=== PATIENT | female | born 1995 | race Caucasian/White ===

== ENCOUNTER 2017-09-26 21:58 | Emergency (ER) | payer OTHER, SELFPAY ==
[2017-09-26] MEDS ORDERED: BUPIVACAINE 0.5% PF 10 ML VIAL ONE (22:56)
--- NOTE | 2017-09-27 00:28 | ER ---
Nurse's Notes [facility] Name: Pavithra Chester Age: 22 yrs Sex: Female : 1995 Arrival Date: 09/26/2017 Time: 22:02 Bed 15 Private MD: Diagnosis: Ingrown Toenail Presentation: 09/26 22:22 Presenting complaint: Patient states: Reports she has an ingrown toe nail in the left ea big toe. Pt states "it hurts when I walk on that foot". Redness and swelling noted around left great toe nail. Transition of care: patient was not received from another setting of care. Onset of symptoms was September 26, 2017. Risk Assessment: Do you want to hurt yourself or someone else? Patient reports no desire to harm self or others. Initial Sepsis Screen: Does the patient meet any 2 criteria? HR > 90 bpm. Yes Does the patient have a suspected source of infection? Yes: Skin breakdown/wound. Care prior to arrival: None. 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 - Ebola Screening: : No symptoms or risks identified at this time. Screenin:19 Abuse screen: Denies threats or abuse. Nutritional screening: No deficits noted. ea Tuberculosis screening: No symptoms or risk factors identified. Fall Risk None identified. Assessment: 22:20 General: Appears in no apparent distress. Behavior is cooperative, appropriate for age. ea General: Smells of alcohol. Pain: Pain: Complains of pain in Left first toenail Pain does not radiate. Pain currently is 8 out of 10 on a pain scale. Quality of pain is described as throbbing. Neuro: Level of Consciousness is awake, alert, obeys commands, Oriented to person, place, time, situation. Cardiovascular: Patient's skin is warm and dry. Respiratory: Airway is patent Respiratory effort is even, unlabored, Respiratory pattern is regular, symmetrical. GI: No signs and/or symptoms were reported involving the gastrointestinal system. : No signs and/or symptoms were reported regarding the genitourinary system. EENT: No signs and/or symptoms were reported regarding the EENT system. Derm: Skin is pink, warm \\T\\ dry. Musculoskeletal: Circulation, motion, and sensation intact. 23:20 Reassessment: Patient and/or family updated on plan of care and expected duration. Pain ea level reassessed. Patient is alert, oriented x 3, equal unlabored respirations, skin warm/dry/pink. 09/27 00:45 Reassessment: Patient and/or family updated on plan of care and expected duration. Pain ea level reassessed. Patient is alert, oriented x 3, equal unlabored respirations, skin warm/dry/pink. Discharge instruction given to patient, verbalized the understanding of instruction. Patient states feeling better. Patient states symptoms have improved. Vital Signs: 09/26 22:25 BP 120 / 84; Pulse 93; Resp 16 S; Temp 98.5(O); Pulse Ox 98% on R/A; Weight 111.13 kg bb (R); Height 5 ft. 4 in. (162.56 cm) (R); Pain 2/10; 23:30 BP 128 / 80; Pulse 90; Resp 18; Pulse Ox 99% ; ea 09/27 00:45 BP 118 / 78; Pulse 88; Resp 18; Pulse Ox 98% on R/A; ea 07 22:25 Body Mass Index 42.05 (111.13 kg, 162.56 cm) bb ED Course: 09/26 22:02 Patient arrived in ED. ds1 22:07 Evin Mg PA is PHCP. jr8 22:07 Raudel Parsons MD is Attending Physician. jr8 22:19 Sahra Jewell RN is Primary Nurse. ea 22:20 Arm band placed on right wrist. Patient placed in an exam room, on a stretcher, on ea pulse oximetry. 22:20 Patient has correct armband on for positive identification. Bed in low position. Call ea light in reach. Side rails up X2. 22:24 Triage completed. ea 09/27 00:30 No provider procedures requiring assistance completed. ea 00:45 Patient did not have IV access during this emergency room visit. ea Administered Medications: 00:02 Drug: Marcaine (0.5 %) 1 vials {Note: by provider.} Volume: 10 ml; Route: Infiltration; ea Outcome: 00:27 Discharge ordered by MD. ha 00:45 Condition: improved ea 00:45 Discharge instructions given to patient, Instructed on discharge instructions, follow up and referral plans. medication usage, Demonstrated understanding of instructions, follow-up care, medications, Prescriptions given X 3. 00:50 Discharged to home ambulatory, with significant other. ea 00:54 Patient left the ED. ea Signatures: Zhanna Manzanares ds1 Cindy Martinez, RN RN Evin Brown PA PA jr8 Sahra Jewell RN RN ea
--- NOTE | 2017-09-27 00:28 | EDPHYS ---
Physician Documentation [facility] Name: Pavithra Chseter Age: 22 yrs Sex: Female : 1995 Arrival Date: 09/26/2017 Time: 22:02 Bed 15 Private MD: ED Physician Raudel Parsons HPI: 09/26 22:59 This 22 yrs old Female presents to ER via Ambulatory with complaints of Toe jr8 Injury. 22:59 The patient presents with pain, swelling, tenderness. The complaints affect the Left jr8 first toenail. Onset: The symptoms/episode began/occurred gradually, 1 week(s) ago, and became worse and became persistent. Modifying factors: The symptoms are alleviated by nothing, the symptoms are aggravated by weight bearing, movement. Associated signs and symptoms: The patient has no apparent associated signs or symptoms. Severity of symptoms: At their worst the symptoms were mild, in the emergency department the symptoms are unchanged. The patient has not experienced similar symptoms in the past. The patient has not recently seen a physician. 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 - Ebola Screening: : No symptoms or risks identified at this time. ROS: 22:59 Eyes: Negative for injury, pain, redness, and discharge, ENT: Negative for injury, jr8 pain, and discharge, Neck: Negative for injury, pain, and swelling, Cardiovascular: Negative for chest pain, palpitations, and edema, Respiratory: Negative for shortness of breath, cough, wheezing, and pleuritic chest pain, Abdomen/GI: Negative for abdominal pain, nausea, vomiting, diarrhea, and constipation, Back: Negative for injury and pain, Skin: Negative for injury, rash, and discoloration, Neuro: Negative for headache, weakness, numbness, tingling, and seizure. 22:59 MS/extremity: Positive for erythema, pain, swelling, tenderness, of the Left first toe. Exam: 22:59 Cardiovascular: Regular rate and rhythm with a normal S1 and S2. No gallops, murmurs, jr8 or rubs. Normal PMI, no JVD. No pulse deficits. Respiratory: Lungs have equal breath sounds bilaterally, clear to auscultation and percussion. No rales, rhonchi or wheezes noted. No increased work of breathing, no retractions or nasal flaring. Skin: Warm, dry with normal turgor. Normal color with no rashes, no lesions, and no evidence of cellulitis. Neuro: Awake and alert, GCS 15, oriented to person, place, time, and situation. Cranial nerves II-XII grossly intact. Motor strength 5/5 in all extremities. Sensory grossly intact. Cerebellar exam normal. Normal gait. 22:59 Musculoskeletal/extremity: Extremities: grossly normal except: noted in the left first toe: Patient has ingrown toe nail to lateral nailbed with mild oozing of serous fluid. Red and tender to touch with swelling , ROM: intact in all extremities, Circulation is intact in all extremities. Sensation intact. Vital Signs: 22:25 BP 120 / 84; Pulse 93; Resp 16 S; Temp 98.5(O); Pulse Ox 98% on R/A; Weight 111.13 kg bb (R); Height 5 ft. 4 in. (162.56 cm) (R); Pain 2/10; 23:30 BP 128 / 80; Pulse 90; Resp 18; Pulse Ox 99% ; ea 09/27 00:45 BP 118 / 78; Pulse 88; Resp 18; Pulse Ox 98% on R/A; ea 09/26 22:25 Body Mass Index 42.05 (111.13 kg, 162.56 cm) bb Procedures: 00:24 Nerve block: (digital) of left first toe Medication: Marcaine 0.5%, Amount: 5 mls were jr8 injected, Effect: the patient has resolution of the pain, Set up for procedure. Performed by Evin ST Patient tolerated well. Performed Partial removal of toe nail. Patient dressed and cleaned in sterile fashion. Lateral 1/4 of nail removed down through the bed to extract ingrown toenail. Less then 1 cc blood loss during procedure. . MDM: 09/26 22:07 Patient medically screened. jr8 09/27 00:24 Data reviewed: vital signs, nurses notes, and as a result, I will discharge patient. jr8 Data interpreted: Pulse oximetry: on room air is 98 %. Interpretation: normal. Counseling: I had a detailed discussion with the patient and/or guardian regarding: the historical points, exam findings, and any diagnostic results supporting the discharge/admit diagnosis, the need for outpatient follow up, a family practitioner, to return to the emergency department if symptoms worsen or persist or if there are any questions or concerns that arise at home. 09/26 22:48 Order name: Dressing - Wound jr8 09/26 22:48 Order name: Gloves, Sterile; Complete Time: 22:54 jr8 09/26 22:48 Order name: Setup Suture Tray; Complete Time: 22:55 jr8 Administered Medications: 00:02 Drug: Marcaine (0.5 %) 1 vials {Note: by provider.} Volume: 10 ml; Route: Infiltration; ea Disposition: 19:08 Co-signature as Attending Physician, Raudel Parsons MD. gs Disposition: 09/27/17 00:27 Discharged to Home. Impression: Ingrown Toenail . - Condition is Stable. - Discharge Instructions: Ingrown Toenail. - Prescriptions for Ibuprofen 800 mg Oral Tablet - take 1 tablet by ORAL route every 12 hours As needed take with food; 20 tablet. Tylenol- Codeine #3 300-30 mg Oral Tablet - take 2 tablets by ORAL route every 6 hours As needed; 12 tablet. Bactrim DS 800- 160 mg Oral Tablet - take 1 tablet by ORAL route every 12 hours for 10 days; 20 tablet. - Medication Reconciliation Form, Thank You Letter, Antibiotic Education, Prescription Opioid Use form. - Follow up: Private Physician; When: 5 - 6 days; Reason: Recheck today's complaints, Continuance of care, Re-evaluation by your physician. - Problem is new. - Symptoms have improved. Signatures: Evin Mg PA PA jr8 Sahra Jewell RN RN ea Starr, Gregory, MD MD gs Corrections: (The following items were deleted from the chart) 00:54 00:27 09/27/2017 00:27 Discharged to Home. Impression: Ingrown Toenail . Condition is ea Stable. Forms are Medication Reconciliation Form, Thank You Letter, Antibiotic Education, Prescription Opioid Use. Follow up: Private Physician; When: 5 - 6 days; Reason: Recheck today's complaints, Continuance of care, Re-evaluation by your physician. Problem is new. Symptoms have improved. jr8
== END 2017-09-27 00:54 | disposition home or self-care (01) ==
LOC: ER 21:58
PROC: 3E0T3BZ Introduction of Anesthetic Agent into Peripheral Nerves and Plexi, Percutaneous Approach (ICD-10-PCS; principal; 2017-09-27)
DX: L60.0 Ingrowing nail (principal); Z88.1 Allergy status to other antibiotic agents; Z88.3 Allergy status to other anti-infective agents
CPT/HCPCS: 64450; 99283

== ENCOUNTER 2022-10-06 10:59 | Emergency (ER) | payer OTHER, SELFPAY ==
--- OUTSIDE RECORDS SUMMARY | 2022-10-06 11:02 | XMS REPORT | Continuity of Care Document ---
:1995 Author Organization [facility] t Address [address] [facility] [address] [place] [address] Care Team Providers Name Role Phone Mariposa Gallegos Primary Care Physician [phone] CARLOS ATKINS Attending Clinician Unavailable Cindy Lawrence MA Attending Clinician Unavailable Carlos Atkins MD Attending Clinician SHAWNEE CORTEZ Attending Clinician Unavailable Shawnee Cortez PA-C Attending Clinician Nurse, [facility] Attending Clinician Unavailable Anselmo Cuadra CRNA Attending Clinician Marek Samuels MD, Leonard Attending Clinician Aziza Fong MD Attending Clinician 2, [facility] Attending Clinician Unavailable Doctor Unassigned, [place] Attending Clinician Unavailable Ultrasound, [facility] Attending Clinician Unavailable Armando Roque MD Attending Clinician Room, [facility] Attending Clinician Unavailable Ultrasound, [facility] Attending Clinician Unavailable Ayaan Farfan MD, Mary Ellen Attending Clinician [phone] Delio Galeano MD Attending Clinician Erica Mccarty MD Attending Clinician MARIPOSA CARLSON Attending Clinician Unavailable Mariposa Gallegos Attending Clinician [phone] CARLOS ATKINS Admitting Clinician Unavailable Carlos Atkins MD Admitting Clinician Payers Payer Name Policy Type Policy Number Effective Date Expiration Date Roxanna resendez [facility] [id number] 2020 CHOICE MEDICAID 00:00:00 MEDICAID PENDING PENDING 2020 00:00:00 Problems Condition Condition Condition Status Onset Resolution Last Treating Co mments Source Name Details Category Date Date Treatment Clinician Date Morbid Morbid Disease Active Univers obesity obesity 5-10 [place] of [place] mass index 00 Me dical of of Branch 40.0-49.9 40.0-49.9 History of History of Disease Active U nivers asthma asthma 3-08 ity of 00:00: [place] 00 Medical Branch 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 Refer to colpo clinic Allergies, Adverse Reactions, Alerts Allergy Allergy Status Severity Reaction(s) Onset Inactive Treating Comm ents Source Name Type Date Date Clinician AZITHROM DRUG Active Hives Univers YCIN INGREDI 7-12 ity of 00:00: [place] 00 Medical Branch Azithrom Propensi Active Hives Univer s ycin ty to 7-12 ity of adverse 00:00: [place] reaction 00 Medical s Branch Penicill Propensi Active Hives 2014-03 Univer s ins ty to 106 ity of adverse 00:00: [place] reaction 00 Medical s Branch AMOXICIL DRUG Active Hives 2014-03 Univers ROBERT-POT 1-06 ity of CLAVULAN 00:00: [place] ATE 00 Medical Branch PENICILL Drug Active Hives 2014-03 Univers INS Class 1-06 ity of 00:00: [place] 00 Medical Branch Penicill Propensi Active Hives 2014-03 Univer s ins ty to 106 ity of adverse 00:00: [place] reaction 00 Medical s Branch Amoxicil Propensi Active Hives 2014-03 Univer s robert-Pot ty to 106 ity of Clavulan adverse 00:00: [place] ate reaction 00 Medical s Branch Social History Social Habit Start Date Stop Date Quantity Comments Source Exposure to 2022-06-21 2022-07-01 Not sure University SARS-CoV-2 (event) 00:00:00 09:55:00 [facility] Alcohol Comment 2022-07-01 2022-07-01 once or twice a Univ ersity of 00:00:00 00:00:00 month [facility] Cigarettes smoked 2022-07-01 2022-07-01 Univers ity of current (pack per 00:00:00 00:00:00 [facility] ed) - Reported Branch Tobacco use and 2022-07-01 2022-07-01 Smokeless Universit y of exposure 00:00:00 00:00:00 tobacco non-user [facility] dical [place] Alcohol intake 2022-07-01 2022-07-01 Current drinker Unive rsity of 00:00:00 00:00:00 of alcohol [facility] (finding) Branch History of tobacco 2020-04-13 Cigarette Smoker University of use 00:00:00 [facility] Sex Assigned At [birth year] Universit y of 00:00:00 00:00:00 [facility] Smoking Status Start Date Stop Date Source Ex-smoker 2022-07-01 00:00:00 2022-07-01 00:00:00 Universi ty [facility] Medications Ordered Filled Start Stop Current Ordering Indication Dosage Frequency Signature Comments Components Source Medication Medication Date Date Medication? Clinician (SIG) Name Name acetaminoph Yes Take by Uni vers en (TYLENOL 4-26 mouth. ity of ORAL) 14:00: [address] acetaminoph Yes Take by Uni vers en (TYLENOL 4-26 mouth. ity of ORAL) 14:00: [address] acetaminoph Yes Take by Uni vers en (TYLENOL 4-26 mouth. ity of ORAL) 14:00: [address] acetaminoph Yes Take by Uni vers en (TYLENOL 4-26 mouth. ity of ORAL) 14:00: [address] 2020-03- No [id number] 1{tbl} Take 1 Univers vitamin 0-07-01 tablet by ity of w/FA tablet 00:00[place] 00[place] mouth [place] :00 daily. Medical Branch docusate 2020-03- No [id number] 240mg Take 1 U nivers calcium 240 07-01 capsule by i ty of mg capsule 00:00: 00:00 mouth once [place] 00 :00 daily as Medical needed for Branch Constipati on. ferrous 2020-03- No [id number] 325mg Take 1 Un osvaldo sulfate 325 07-01 tablet by it y of mg (65 mg 00:00: 00:00 mouth 2 [place] iron) 00 :00 (two) Medical tablet times Branch daily. ibuprofen 2020-03- No [id number] 600mg Take 1 Univers 600 mg 07-01 tablet by ity of tablet 00:00: 00:00 mouth [place] 00 :00 every 6 Medical (six) Branch hours as needed (Pain). Take with food or milk. Immunizations Ordered Filled Immunization Date Status Comments [facility] Immunization Name Name Varicella 2020-12-06 Completed [facility] (varivax)(chicken 00:00:00 [facility] edical pox) [place] Varicella 2020-12-06 Completed [facility] (varivax)(chicken 00:00:00 [facility] edical pox) Branch Varicella 2020-12-06 Completed [facility] (varivax)(chicken 00:00:00 [facility] edical pox) Branch Varicella 2020-12-06 Completed [facility] (varivax)(chicken 00:00:00 [facility] edical pox) [place] TDAP 2020-10-08 Completed [facility] 00:00:00 [facility] TDAP 2020-10-08 Completed University of 00:00:00 [facility] TDAP 2020-10-08 Completed University of 00:00:00 [facility] TDAP 2020-10-08 Completed [facility] 00:00:00 [facility] Vital Signs Vital Name Observation Time Observation Value Comments Source Systolic blood 2022-07-01 18:17:00 130 mm[Hg] Univer sity of pressure [facility] Diastolic blood 2022-07-01 18:17:00 80 mm[Hg] Unive rsity of pressure [facility] Heart rate 2022-07-01 18:17:00 85 /min Universi ty of [facility] Body temperature 2022-07-01 18:17:00 36.83 Dee [facility] ersity of [facility] Body height 2022-07-01 18:17:00 162.6 cm Universi ty of [facility] Body weight 2022-07-01 18:17:00 109.77 kg Universi ty of [facility] BMI 2022-07-01 18:17:00 41.54 kg/m2 Universi ty [facility] Systolic blood 2021-07-01 18:53:00 119 mm[Hg] Univer sity of pressure [facility] Diastolic blood 2021-07-01 18:53:00 81 mm[Hg] Unive rsity of [facility] Heart rate 2021-07-01 18:53:00 84 /min Universi ty [facility] Body temperature 2021-07-01 18:53:00 36.89 Dee [facility] Body height 2021-07-01 18:53:00 162.6 cm Universi ty of [facility] Body weight 2021-07-01 18:53:00 99.701 kg Universi ty [facility] BMI 2021-07-01 18:53:00 37.73 kg/m2 Universi ty [facility] Procedures Procedure Date / Time Performed Performing Clinician [facility] LAB ONLY PAP 2021-07-01 19:17:[address] [facility] [place] SMEAR-LIQUID [facility] h PAP SMEAR-LIQUID 2021-07-01 19:17:00 Carlos [facility] Encounters Start End Encounter Admission Attending Care Care Encounter Source Date/Time Date/Time Type Type Clinicians Facility Department ID 2021-01-07 Outpatient P [facility] FIDEL [id number] Univers 02:05:25 ity of [facility] 2021-01-06 Emergency [facility] [id number] Univers 20:31:55 ity of [facility] 2022-08-27 2022-08-27 RYLEY Pyle 1.2.840.114 [id number] Univers 00:00:00 00:00:00 Management Cindy [place] [id number] ity of [place] 4.2.7.2.686 [place] [phone] [address] 2022-07-01 2022-07-01 Outpatient R CARLOS ATKINS [facility] [id number] Univers 13:30:00 13:54:34 ity [facility] 2022-07-01 2022-07-01 [facility] [id number] Univers 13:30:00 13:54:34 Visit Cam [place] [id number] i ty of [facility] 4.2.7.2.686 [place] [phone] [address] 2021-07-01 2021-07-01 Outpatient R MILLY [facility] [id number] Univers 13:45:00 14:20:55 ity of [facility] 2021-07-01 2021-07-01 Outpatient R MILLY [facility] [id number] Univers 13:45:00 14:20:55 ity [facility] 2021-07-01 2021-07-01 Office [facility] [id number] Univers 13:45:00 14:20:55 Visit Ramiro [place] [id number] i ty of [place] [id number] [place]ESS[place] [phone] [address] 2021-01-14 2021-01-14 Telephone [facility] 1.2.840.114 [id number] Univers 00:00:00 00:00:00 Cam [place] 350.1.13.10 i ty of [place] 4.2.7.2.686 [place] [phone] [address] 2021-01-02 2021-01-02 Outpatient R DANA [facility] [id number] Univers 16:00:00 17:05:31 SHAWNEE itcorine [facility] 2021-01-02 2021-01-02 [facility] 1.2.106.990 [id number] Univers 15:59:41 17:05:31 Shawnee NUGENT 350.1.13.10 ity of Visit [place] [id number] [place] [phone] Wy dical NAL [address] [place] [address] 2020-12-12 2020-12-12 Telephone Carlos Atkins [facility] 1.2.840.114 [id number] Univers 00:00:00 00:00:00 Cam [place] 350.1.13.10 i ty of [place] 4.2.7.2.686 [place] Profess[place] [phone] Wy dic[address] 2020-12-10 2020-12-10 Nurse Nurse, [facility] 1.2.840.114 [id number] Univers 14:56:17 15:30:53 Visit Carlos Atkins Ramiro Nugent 350.1.13.10 ity of [place] 4.2.7.2.686 [place] Profess[place] [phone] [address] 2020-12-10 2020-12-10 Outpatient R MILLY [facility] [id number] Univers 14:30:00 14:30:00 ity of [facility] 2020-12-09 2020-12-09 Outpatient R MILLY [facility] [id number] Univers 10:45:00 10:45:00 ity [facility] 2020-12-03 2020-12-06 [facility] Carlos Atkins [facility] 1.2.840.114 [id number] Univers 15:41:00 15:05:00 Encounter Ramiro Nugent 350.1.13.10 ity of [place] 4.2.7.2.686 [facility] [id number] [address] 2020-12-05 2020-12-05 Anesthesia Khalif [facility] 1.2.840.114 [id number] Univers 20:03:17 20:03:17 Event Anselmo Nugent 350.1.13.10 i ty of [place] 4.2.7.2.686 [facility] [id number] [address] 2020-12-04 2020-12-05 Anesthesia Alex Jara [facility] 1.2.84 0.114 [id number] Univers 22:25:00 12:25:00 Event Fong, Aziza Sec[place] 350.1.13.10 ity of [place] 4.2.7.2.686 [place] [phone] [facility] [address] [place] 2020-12-03 2020-12-03 Routine Carlos Atkins [facility] 1.2.476.658 [id number] Univers 14:13:05 15:25:55 Cam [place] 350.1.13.10 ity of Visit [place] 4.2.7.2.686 [place] [phone] Wy dical nal [address] [facility] 2020-12-03 2020-12-03 Outpatient R CARLOS ATKINS [facility] [id number] Univers 14:15:00 14:15:00 ity of [facility] 2020-11-29 2020-11-29 Instrument Lens Generator 2, Adc Lab [facility] 1.2.840.114 [id number] Univers 14:25:36 14:40:36 Visit Carlos Atikns 350.1.13.10 ity of [place] 4.2.7.2.686 [place] [facility] [phone] Wy dical nal 353 [facility] 2020-11-29 2020-11-29 Outpatient R [facility] [id number] Univers 14:30:00 14:30:00 ity of [facility] 2020-11-25 2020-11-25 Routine [facility] [id number] Univers 15:14:06 16:29:36 Cam [place] 350.1.13.10 ity of Visit [place] [id number] [place] Profess[place] [phone] Wy dical nal 134 [facility] 2020-11-25 2020-11-25 Outpatient R CARLOS ATKINS [facility] [id number] Univers 15:15:00 15:15:00 ity of [facility] 2020-11-25 2020-11-25 Orders Doctor SLADE 1.2.840.114 [id number] Univers 00:00:00 00:00:00 Only Unassigned, [place] 350.1.13.10 ity of [place] [facility] 4.2.7.2.686 Sukhdev as [phone] [address] 2020-11-22 2020-11-22 Instrument Lens Generator Ultrasound, [facility] 1.2 .840.114 [id number] Univers 13:25:01 13:55:01 Visit Jude Armando Vikas [place]ug[place] 350.1.13.10 ity of [place] 4.2.7.2.686 [place] Profess[place] [phone] Wy dical [address] 2020-11-22 2020-11-22 Outpatient P [facility] [id number] Univers 13:30:00 13:30:00 ity [facility] 2020-11-21 2020-11-21 Outpatient R DANA [facility] [id number] Univers 14:45:00 14:45:00 [facility] [place] [facility] 2020-11-21 2020-11-21 Outpatient R [facility] [id number] Univers 14:00:00 [facility]00[facility]00 [facility] 2020-11-19 2020-11-19 Outpatient R DANA [facility] [id number] Univers 11:30:00 11:30:00 [facility] [place] [facility] 2020-11-18 2020-11-18 Routine Room, [facility] 1.2.840.1 [id number] Univers 10:05:39 11:15:17 Carlos Atkins 350.1.13.10 ity of Visit [place] 4.2.7.2.686 [place] Profess[place] [phone] Wy dical nal [address] [place] [address] 2020-11-18 2020-11-18 Outpatient R [facility] [id number] Univers 10:00:00 10:00:00 ity [facility] 2020-11-15 2020-11-15 Telephone Carlos Atkins [facility] 1.2.840.114 [id number] Univers 00:00:00 00:00:00 Ramiro Nugent 350.1.13.10 i ty of [place] 4.2.7.2.686 [place] Profess[place] [id number] Wy dical nal [address] [place] [address] 2020-11-15 2020-11-15 Telephone Carlos Atkins [facility] 1.2.840.114 [id number] Univers 00:00:00 00:00:00 Cam Sec[place] 350.1.13.10 i ty of [place] 4.2.7.2.686 [place] [phone] Wy dical nal 134 [facility] 2020-11-13 2020-11-13 Routine Room, [facility] 1.2.840.1 [id number] Univers 09:07:01 10:11:21 Carlos Atkins [place] 350.1.13.10 ity of Visit [place] 4.2.7.2.686 [place] Profess[place] [phone] Wy dical nal [address] [place] [address] 2020-11-13 2020-11-13 Routine Room, [facility] [place] 1.2.840.1 [id number] [facility] [facility] 09:07:01 10:11:21 Carlos Atkins [place] 350.1.13.10 ity of Visit [place] 4.2.7.2.686 [place] Profess[place] [phone] Wy dical nal [address] [place] [address] 2020-11-13 2020-11-13 Outpatient R [facility] [id number] Univers 09:00:00 09:00:00 ity of [facility] 2020-11-12 2020-11-12 Telephone Carlos Atkins [facility] 1.2.840.114 [id number] Univers 00:00:00 00:00:00 Cam [place] 350.1.13.10 i ty of [place] 4.2.7.2.686 [place] Profess[place] [phone] Wy dical nal [address] [place] [address] 2020-11-12 2020-11-12 Telephone Carlos Atkins [facility] 1.2.840.114 [id number] Univers 00:00:00 00:00:00 Cam [place] 350.1.13.10 i ty of [place] 4.2.7.2.686 [place] [phone] Wy dical nal [address] [place] [address] 2020-11-10 2020-11-10 Emergency [facility] 1.2.840.114 [id number] Univers 03:32:00 04:35:00 Cam Sec[place] 350.1.13.10 i ty of [place] 4.2.7.2.686 [id number] [address] 2020-11-10 2020-11-10 Emergency [facility] 1.2.840.114 [id number] Univers 03:32:00 04:35:00 Cam [place] 350.1.13.10 i ty of [place] 4.2.7.2.686 [place] [facility] [id number] [address] 2020-11-08 2020-11-08 Orders Doctor [place] 1.2.840.114 [id number] Univers 00:00:00 00:00:00 Only Unassigned, MAGDI[place] 350.1.13.10 ity of [place] [facility] 4.2.7.2.686 Sukhdev as [phone] [address] 2020-11-08 2020-11-08 Orders Doctor [place] 1.2.840.114 [id number] Univers 00:00:00 00:00:00 Only Unassigned, MAGDI[place] 350.1.13.10 ity of [place] [facility] 4.2.7.2.686 Sukhdev as [phone] [address] 2020-11-06 2020-11-06 Routine [facility] 1.2.062.401 [id number] Univers 13:03:27 14:13:35 Cam Sec[place] 350.1.13.10 ity of Visit [place] 4.2.7.2.686 [place] Profess[place] [phone] Wy dical nal [address] [place] [address] 2020-11-06 2020-11-06 Routine [facility] 1.2.366.865 [id number] Univers 13:03:27 14:13:35 Cam Sec[place] 350.1.13.10 ity of Visit [place] 4.2.7.2.686 [place] Profess[place] [phone] Wy dictn nal [address] [place] [address] 2020-11-06 2020-11-06 Outpatient R MILLY CARLOS [facility] [id number] Univers 13:00:00 13:00:00 ity [facility] 2020-10-31 2020-10-31 Telephone Carlos Atkins [facility] 1.2.840.114 [id number] Univers 00:00:00 00:00:00 Ramiro Nugent 350.1.13.10 i ty of [place] 4.2.7.2.[place] [phone] [address] 2020-10-31 2020-10-31 Telephone Carlos Atkins [facility] 1.2.840.114 [id number] Univers 00:00:00 00:00:00 Ramiro Nugent 350.1.13.10 i ty of [place] 4.2.7.2.[place] [phone] [address] 2020-10-28 2020-10-28 Nurse Nurse, [facility] 1.2.840.114 [id number] Univers 14:10:50 14:26:46 Visit Carlos Atkins Ramiro Nugent 350.1.13.10 ity of [place] 4.2.7.2.[place] Profess[place] [phone] [address] 2020-10-28 2020-10-28 Outpatient R [facility] [id number] Univers 14:00:00 14:00:00 ity [facility] 2020-10-23 2020-10-23 Routine Dana [facility] 1.2.155.202 [id number] Univers 16:06:20 16:58:45 Shawnee Nugent 350.1.13.10 ity of Visit [place] 4.2.7.2.686 [place] Profess[place] [phone] [address] 2020-10-23 2020-10-23 Outpatient R DANA [facility] [id number] Univers 16:15:00 16:15:00 SHAWNEE itcorine [facility] 2020-10-21 2020-10-21 Instrument Lens Generator [facility] 1.2 .840.114 [id number] Univers 13:43:37 14:28:37 Visit Mary Ellen Saenz GLUING PRESSMAN 350.1. 13.10 ity of [facility] 4.2.7.2.686 Sukhdev as MATERNAL [phone] Med ical & CHILD [address] [place] [address] 2020-10-21 2020-10-21 Outpatient P [facility] [id number] Univers 13:45:00 13:45:00 ity of [facility] 2020-10-08 2020-10-08 Routine [facility] 1.2.412.950 [id number] Univers 15:39:08 16:17:14 Ramiro Jennifer 350.1.13.10 ity of Visit [place] 4.2.7.2.[place] Profess[place] [phone] Wy dical [address] 2020-10-08 2020-10-08 Outpatient R CARLOS ATKINS [facility] [id number] Univers 15:30:00 15:30:00 ity of [facility] 2020-09-13 2020-09-13 Instrument Lens Generator 2, Adc Lab [facility] 1.2.840.114 [id number] Univers 08:44:03 08:59:03 Visit Carlos Atkins [place] 350.1.13.10 ity of [place] 4.2.7.2.[place] Profess[place] [phone] [facility] 353 [facility] 2020-09-13 2020-09-13 Outpatient R [facility] [id number] Univers 08:30:00 08:30:00 ity of [facility] 2020-09-12 2020-09-12 [facility]phone [facility] 1.2.840.114 [id number] Univers 00:00:00 00:00:00 Shawnee Nugent 350.1.13.10 i ty of [place] 4.2.7.2.[place] [phone] Wy dical [address] 2020-09-11 2020-09-11 Case Dana [facility] 1.2.493.746 [id number] Univers 00:00:00 00:00:00 Management Shawnee Nugent 350.1.13.10 ity of [place] 4.2.7.2.[place] [phone] Wy dical nal 134 [facility] 2020-09-10 2020-09-10 Instrument Lens Generator 2, Adc Lab [facility] 1.2.840.114 [id number] Univers 14:24:19 14:39:19 Visit JoshShawnee monreal Jennifer 350.1.13.10 ity of [place] 4.2.7.2.[place] [phone] Wy dical [facility] 353 [facility] 2020-09-10 2020-09-10 Outpatient R [facility] [id number] Univers 14:30:00 14:30:00 ity of [facility] 2020-09-10 2020-09-10 Routine Dana [facility] 1.2.552.144 [id number] Univers 13:41:38 14:20:52 Shawnee Nugent 350.1.13.10 ity of Visit [place] 4.2.7.2.[place] [phone] Wy dical [address] 2020-08-30 2020-08-30 Telephone Carlos Atkins [facility] 1.2.840.114 [id number] Univers 00:00:00 00:00:00 Ramiro Nugent 350.1.13.10 i ty of [place] 4.2.7.2.[place] [phone] Wy dical nal 134 [facility] 2020-08-27 2020-08-27 Instrument Lens Generator Ultrasound, [facility] 1.2 .840.114 [id number] Univers 08:09:38 08:39:38 Visit Delio Galeano GLUING PRESSMAN 350.1.13.1 0 ity of [facility] 4.2.7.2.686 Sukhdev as MATERNAL [phone] Med ical & CHILD [address] [place] [address] 2020-08-27 2020-08-27 Outpatient P [facility] [id number] Univers 08:00:00 08:00:00 ity [facility] 2020-08-12 2020-08-12 Routine Carlos Atkins [facility] 1.2.303.882 [id number] Univers 10:57:32 11:55:43 Cam Secor 350.1.13.10 ity of Visit [place] 4.2.7.2.[place] [phone] [facility] 134 [facility] 2020-08-12 2020-08-12 Outpatient R CARLOS ATKINS [facility] [id number] Univers 11:00:00 11:00:00 ity of [facility] 2020-07-30 2020-07-30 Instrument Lens Generator Ultrasound, [facility] 1.2 .840.114 [id number] Univers 13:37:12 14:37:12 Visit Erica Mccarty GLUING PRESSMAN 350.1.13.10 ity of REGIONAL 4.2.7.2.686 Sukhdev as MATERNAL [phone] Med ical & CHILD [address] [place] [address] 2020-07-30 2020-07-30 Outpatient P [facility] [id number] Univers 13:45:00 13:45:00 ity of [facility] 2020-07-15 2020-07-15 Instrument Lens Generator 2, Adc Lab [facility] 1.2.840.114 [id number] Univers 09:53:14 10:08:14 Visit Milly Carlosvinicius Nugent 350.1.13.10 ity of [place] 4.2.7.2.[place] [phone] [facility] 353 [facility] 2020-07-15 2020-07-15 Routine [facility] 1.2.289.042 [id number] Univers 08:43:48 08:58:48 Ramiro Secor 350.1.13.10 ity of Visit [place] 4.2.7.2.[place] [phone] [facility] 134 [facility] 2020-07-15 2020-07-15 Outpatient R CARLOS ATKINS [facility] [id number] Univers 08:45:00 08:45:00 ity of [facility] 2020-07-08 2020-07-08 Telephone Carlos Atkins [facility] [id number] Univers 00:00:00 00:00:00 Ramiro Nugent [id number] [id number] [phone] Wy dical [place]al [address] [place] [address] 2020-06-26 2020-06-26 Telephone Carlos Atkins [facility] [id number] Univers 00:00:00 00:00:00 Cam Secor [id number] [id number] [phone] Wy dical nal [address] [place] [address] 2020-06-17 2020-06-17 [facility] [id number] Univers 08:25:38 10:05:24 Visit Cam Jennifer [id number] [id number] [phone] Wy dical nal [address] [place] [address] 2020-06-17 2020-06-17 Outpatient R CARLOS ATKINS [facility] [id number] Univers 08:30:00 08:30:00 ity of [facility] 2020-06-17 2020-06-17 Orders Doctor [place] [id number] Univers 00:00:00 00:00:00 Only Unassigned, MAGDIEL [id number] ity of [place] [facility] [id number] Sukhdev as [phone] [address] 2020-06-10 2020-06-10 Outpatient R ALDO [facility] [id number] Univers 10:30:00 10:30:00 MARIPOSA ity o f [facility] 2020-06-10 2020-06-10 Outpatient R [facility] [id number] Univers 10:00:00 10:00:00 ity of [facility] 2020-05-13 2020-05-13 Initial Atkins [facility] [id number] Univers 14:38:10 16:11:12 Cam Secor [id number] ity of [id number] [phone] Wy dical [address] 2020-05-13 2020-05-13 Routine [facility] [id number] Univers 10:26:38 11:39:02 Mariposa C [employer] [id number] ity of Visit REGIONAL [id number] Sukhdev as MATERNAL [phone] [facility] [address] [place] [address] 2020-05-13 2020-05-13 Outpatient R [facility] [id number] Univers 11:00:00 11:00:00 MARIPOSA jacobs f [facility] 2020-05-13 2020-05-13 Orders Doctor [place] [id number] Univers 00:00:00 00:00:00 Only Unassigned, MAGDIEL [id number] ity of [place] [facility] [id number] Sukhdev as [phone] [place] [address] [place] 2020-05-02 2020-05-02 Telephone [facility] [id number] Univers 00:00:00 00:00:00 Mariposa Fox [employer] [id number] ity of REGIONAL [id number] Sukhdev as MATERNAL [phone] [facility] [address] [place] [address] 2020-04-15 2020-04-15 Outpatient R [facility] [id number] Univers 08:30:00 08:30:00 MARIPOSA etienne [facility] 2020-04-15 2020-04-15 Orders Doctor [place] [id number] Univers 00:00:00 00:00:00 Only Unassigned, MAGDIEL [id number] ity of [place] [facility] [id number] Sukhdev as [phone] [place] [address] Branch Results This patient has no known results.
--- NOTE | 2022-10-06 11:17 | EDPHYS ---
Physician Documentation [facility] Name: Pavithra Chester Age: 27 yrs Sex: Female : 1995 Arrival Date: 10/06/2022 Time: 10:59 Bed 20 Private MD: ED Physician Darrel Stevens HPI: 10/06 11:14 This 27 yrs old Female presents to ER via Ambulatory with complaints of Sore Throat. rn 11:14 The patient presents with sore throat. The patient describes throat pain as raw. rn 11:14 Onset: The symptoms/episode began/occurred yesterday. Severity of symptoms: At their rn worst the symptoms were mild, in the emergency department the symptoms are unchanged. Modifying factors: The symptoms are alleviated by nothing, the symptoms are aggravated by swallowing, Patient's oral intake status: good. Associated signs and symptoms: Pertinent negatives chest pain, fever, rhinorrhea, shortness of breath, vomiting. The patient has not experienced similar symptoms in the past. The patient has not recently seen a physician. Historical: - Allergies: 11:12 Amoxicillin; iw 11:12 Zithromax; iw - Immunization history:: Adult Immunizations unknown. - Family history:: not pertinent. - Social history:: Smoking status: unknown. - Hospitalizations: : No recent hospitalization is reported. ROS: 11:14 Constitutional: Negative for fever, chills, and weight loss, ENT: + sore throat Neck: rn Negative for injury, pain, and swelling, Cardiovascular: Negative for chest pain, palpitations, and edema, Respiratory: Negative for shortness of breath, cough, wheezing, and pleuritic chest pain, Abdomen/GI: Negative for abdominal pain, nausea, vomiting, diarrhea, and constipation, MS/Extremity: Negative for injury and deformity, Skin: Negative for injury, rash, and discoloration, Neuro: Negative for headache, weakness, numbness, tingling, and seizure. Exam: 11:14 Constitutional: This is a well developed, well nourished patient who is awake, alert, rn and in no acute distress. Eyes: Pupils equal round and reactive to light, extra-ocular motions intact. ENT: + tonsillar hypertrophy with exudate, uvula midline, no stridor Neck: Trache midline. No Meningismus. Vital Signs: 11:11 BP 134 / 88; Pulse 102; Resp 16; Temp 99; Pulse Ox 98% on R/A; iw MDM: 11:04 Patient medically screened. rn 11:14 Differential diagnosis: group A strep tonsillitis, laryngitis, tonsillitis, upper rn respiratory infection, viral syndrome. Data reviewed: vital signs, nurses notes, and as a result, I will discharge patient. Counseling: I had a detailed discussion with the patient and/or guardian regarding: the historical points, exam findings, and any diagnostic results supporting the discharge/admit diagnosis, the need for outpatient follow up, to return to the emergency department if symptoms worsen or persist or if there are any questions or concerns that arise at home. Special discussion: I discussed with the patient/guardian in detail that at this point there is no indication for admission to the hospital. It is understood, however, that if the symptoms persist or worsen the patient needs to return immediately for re-evaluation. Administered Medications: No medications were administered Disposition Summary: 10/06/22 11:16 Discharge Ordered Location: Home rn Problem: new rn Symptoms: are unchanged rn Condition: Stable rn Diagnosis - Acute tonsillitis, unspecified rn Followup: rn - With: Private Physician - When: As needed - Reason: Recheck today's complaints, Re-evaluation by your physician Discharge Instructions: - Discharge Summary Sheet rn - Tonsillitis rn Forms: - Medication Reconciliation Form rn - Thank You Letter rn - Antibiotic rn operating room - Prescription Opioid Use rn - Patient Portal Instructions rn - Work release form db Prescriptions: - Doxycycline Monohydrate 100 mg Oral Tablet - take 1 tablet by ORAL route every 12 hours for 10 days; 20 tablet; Refills: 0, rn Product Selection Permitted Signatures: Deysi Rodrigues, RN Darrel Donohue MD MD rn Benton, Danielle, RN RN db
--- NOTE | 2022-10-06 11:17 | ER ---
Nurse's Notes [facility] Name: Pavithra Chester Age: 27 yrs Sex: Female : 1995 Arrival Date: 10/06/2022 Time: 10:59 Bed 20 Private MD: Diagnosis: Acute tonsillitis, unspecified Presentation: 10/06 11:11 Chief complaint: Patient states: sore throat since yesterday, left tonsil feels iw swollen. Coronavirus screen: At this time, the client does not indicate any symptoms associated with coronavirus-19. Ebola Screen: Patient negative for fever greater than or equal to 101.5 degrees Fahrenheit, and additional compatible Ebola Virus Disease symptoms Patient denies exposure to infectious person. Patient denies travel to an Ebola-affected area in the 21 days before illness onset. No symptoms or risks identified at this time. Initial Sepsis Screen: Does the patient meet any 2 criteria? No. Patient's initial sepsis screen is negative. Does the patient have a suspected source of infection? No. Patient's initial sepsis screen is negative. Risk Assessment: Do you want to hurt yourself or someone else? Patient reports no desire to harm self or others. Onset of symptoms was October 05, 2022. 11:11 Method Of Arrival: Ambulatory iw 11:11 Acuity: LARRY 4 iw Triage Assessment: 11:21 General: Appears in no apparent distress. Behavior is cooperative. Pain: Complains of db pain in mouth. EENT: Reports sore throat. Historical: - Allergies: 11:12 Amoxicillin; iw 11:12 Zithromax; iw - Immunization history:: Adult Immunizations unknown. - Family history:: not pertinent. - Social history:: Smoking status: unknown. - Hospitalizations: : No recent hospitalization is reported. Screenin:23 [facility] ED Fall Risk Assessment (Adult) History of falling in the last 3 months, db including since admission No falls in past 3 months (0 pts) Confusion or Disorientation No (0 pts) Intoxicated or Sedated No (0 pts) Impaired Gait No (0 pts) Mobility Assist Device Used No (0 pt) Altered Elimination No (0 pt) Score/Fall Risk Level 0 - 2 = Low Risk Oriented to surroundings, Maintained a safe environment. Abuse screen: Denies threats or abuse. Denies injuries from another. Nutritional screening: No deficits noted. Nutritional screening: No deficits noted. Nutritional screening: No deficits noted. Tuberculosis screening: No symptoms or risk factors identified. Assessment: 11:15 Reassessment: Patient appears in no apparent distress at this time. Patient and/or db family updated on plan of care and expected duration. Pain level reassessed. Patient is alert, oriented x 3, equal unlabored respirations, skin warm/dry/pink. General: Appears in no apparent distress. comfortable, Behavior is calm, cooperative. Pain: Complains of pain in mouth. Neuro: Level of Consciousness is awake, alert, obeys commands, Oriented to person, place, time, situation. Respiratory: Airway is patent Respiratory effort is even, unlabored, Respiratory pattern is regular, symmetrical, Breath sounds are clear. EENT: Throat is clear has enlarged tonsils Reports sore throat. Vital Signs: 11:11 BP 134 / 88; Pulse 102; Resp 16; Temp 99; Pulse Ox 98% on R/A; iw ED Course: 11:02 Patient arrived in ED. am2 11:04 Darrel Stevens MD is Attending Physician. rn 11:07 Lin Segundo, RN is Primary Nurse. db 11:12 Triage completed. iw 11:12 Arm band placed on. iw 11:23 Patient has correct armband on for positive identification. Provided Education on: db DISCHARGE. 11:23 No provider procedures requiring assistance completed. Patient did not have IV access db during this emergency room visit. Administered Medications: No medications were administered Medication: 11:15 VIS not applicable for this client. db Outcome: 11:16 Discharge ordered by . rn 11:23 Discharged to home ambulatory. db 11:23 Condition: stable 11:23 Discharge instructions given to patient, Instructed on discharge instructions, follow up and referral plans. Prescriptions given X 1. 11:23 Patient left the ED. db Signatures: Deysi Rodrigues RN RN Darrel Stevens MD MD rn Moreno, Amanda am2 Lin Segundo RN RN db
[2022-10-06 11:37] VITALS: BP 134/88; TEMP 99; O2SAT 98
== END 2022-10-06 11:23 | disposition home or self-care (01) ==
LOC: ER 10:59
DX: J03.90 Acute tonsillitis, unspecified (principal); Z88.1 Allergy status to other antibiotic agents

== ENCOUNTER 2023-01-01 07:08 | Emergency (ER) | payer OTHER ==
--- OUTSIDE RECORDS SUMMARY | 2023-01-01 07:12 | XMS REPORT | Continuity of Care Document ---
:1995 Author Organization [facility] t Address [address] [place] [address] Care Team Providers Name Role Phone Mariposa Gallegos Primary Care Physician [phone] CARLOS ATKINS Attending Clinician Unavailable Cindy Lawrence MA Attending Clinician Unavailable Carlos Atkins MD Attending Clinician SHAWNEE CORTEZ Attending Clinician Unavailable Shawnee Cortez PA-C Attending Clinician Nurse, [facility] Attending Clinician Unavailable Anselmo Cuadra CRNA Attending Clinician Marek Samuels MD, Leonard Attending Clinician Aziza Fong MD Attending Clinician 2, [facility] Lab Attending Clinician Unavailable Doctor Unassigned, [place] Attending Clinician Unavailable Ultrasound, [facility] Mfm Attending Clinician Unavailable Armando Roque MD Attending Clinician Room, [facility]st Attending Clinician Unavailable Ultrasound, [facility] Attending Clinician Unavailable Ayana Farfan MD, Mary Ellen Attending Clinician [phone] Delio Galeano MD Attending Clinician Erica Mccarty MD Attending Clinician MARIPOSA CARLSON Attending Clinician Unavailable Mariposa Gallegos Attending Clinician [phone] CARLOS ATKINS Admitting Clinician Unavailable Carlos Atkisn MD Admitting Clinician Payers Payer Name Policy Type Policy Number Effective Date Expiration Date Roxanna resednez [facility] [id number] 2020 CHOICE MEDICAID 00:00:00 MEDICAID PENDING PENDING [...] Hives 2014-03 Univer s robert-Pot ty to 1-06 ity of Clavulan adverse 00:00: [place] ate reaction 00 Medical s Branch Penicill Propensi Active Hives 2014-03 Univer s ins ty to 1-06 ity of adverse 00:00: [place] reaction 00 Medical s Branch AMOXICIL DRUG Active Hives 2014-03 Univers ROBERT-POT 1-06 ity of CLAVULAN 00:00: [place] ATE 00 Medical Branch PENICILL Drug Active Hives 2014-03 Univers INS Class 1-06 ity of 00:00: [place] 00 Medical Branch Penicill Propensi Active Hives 2014-03 Univer s ins ty to 1-06 ity of adverse 00:00: [place] reaction 00 Medical s Branch Social History Social Habit Start Date Stop Date Quantity Comments Source ASSERTION [facility] Sexual orientation Univer sity of [facility] Exposure to 2022-06-21 2022-07-01 Not sure [facility] SARS-CoV-2 (event) 00:00:00 09:55:00 [facility] Alcohol Comment 2022-07-01 2022-07-01 once or twice a Univ ersity of 00:00:00 00:00:00 month [facility] History of Social 2021-07-01 2021-07-01 Univers ity of function 00:00:00 00:00:00 [facility] Cigarettes smoked 2020-04-15 2020-04-15 Univers ity of current (pack per 00:00:00 00:00:00 [facility] ) - Reported Branch Tobacco use and 2020-04-15 2020-04-15 Former smokeless Uni versity of exposure 00:00:00 00:00:00 tobacco user [facility] Alcohol intake 2020-04-15 2020-04-15 Ex-drinker University 00:00:00 00:00:00 (finding) [facility] History of tobacco 2020-04-13 Cigarette Smoker University of use 00:00:00 [facility] Sex Assigned At [birth year] Universit y of 00:00:00 00:00:00 [facility] Smoking Status Start Date Stop Date Source Occasional tobacco 2020-05-13 00:00:00 [facility] y [facility] smoker Medical Branch Ex-smoker 2020-04-15 00:00:00 2020-04-15 [place] 00:00:00 [facility] Medications Ordered Filled Start Stop Current Ordering Indication Dosage Frequency Signature Comments Components Source Medication Medication Date Date Medication? Clinician (SIG) Name Name acetaminoph Yes Take by Uni vers en (TYLENOL 4-26 mouth. ity of ORAL) 14:00: [address] acetaminoph Yes Take by Uni vers en (TYLENOL 4-26 mouth. ity of ORAL) 14:00: [address] acetaminoph Yes Take by Uni vers en (TYLENOL 4-26 mouth. ity of ORAL) 14:00: [place] [facility] acetaminoph Yes Take by Uni vers en (TYLENOL 4-26 mouth. ity of ORAL) 14:00: [place] [facility] 2020-03- No Take by Unive rs 25/iron 0-12-06 mouth. ity of fum/folic/d 08:34: 00:00 [place] 38 :00 Medical (-1 Branch ORAL) 2020-03- No Take by Unive rs 25/iron 0-12-06 mouth. ity of fum/folic/d 08:34: 00:00 [place] cunningham 38 :00 Medical (-1 Branch ORAL) 2020-03- No [id number] 1{tbl} Take 1 Univers vitamin 0-07-01 tablet by ity of w/FA tablet 00:00: 00:00 [place] daily. Medical Branch docusate 2020-03- No [id number] 240mg Take 1 U nivers calcium 240 07-01 capsule by i ty of mg capsule 00:00: 00:00 mouth once [place] 00 :00 daily as Medical needed for Branch Constipati on. ferrous 2020-03- No [id number] 325mg Take 1 Un osvaldo sulfate 325 07-01 tablet by it y of mg (65 mg 00:00: 00:00 [place] 2 [place] iron) 00 :00 (two) Medical tablet times Branch daily. ibuprofen 2020-03- No [id number] 600mg Take 1 Univers 600 mg 0-07-01 tablet by ity of tablet 00:00: 00:00 mouth [place] 00 :00 every 6 Medical (six) Branch hours as needed (Pain). Take with food or milk. Immunizations Ordered Filled Date Status Comments Source Immunization Name Immunization Name Varicella 2020-12-06 Completed [facility] (varivax)(chicken 00:00:00 [facility] edical pox) Branch Varicella 2020-12-06 Completed [facility] (varivax)(chicken 00:00:00 [facility] edical pox) Branch Varicella 2020-12-06 Completed [facility] (varivax)(chicken 00:00:00 [place] M edical pox) Branch Varicella 2020-12-06 Completed [facility] (varivax)(chicken 00:00:00 [place] M edical pox) Branch TDAP 2020-10-08 Completed University 00:00:00 [facility] TDAP 2020-10-08 Completed University of 00:00:00 [facility] TDAP 2020-10-08 Completed University 00:00:00 [facility] TDAP 2020-10-08 Completed University of 00:00:00 [facility] TDAP Unknown Completed [facility] TDAP Unknown Completed [facility] TDAP Unknown Completed [facility] Vital Signs Vital Name Observation Time Observation Value Comments Source Systolic blood 2022-07-01 18:17:00 130 mm[Hg] Univer sity of pressure [facility] Diastolic blood 2022-07-01 18:17:00 80 mm[Hg] Unive rsity of [facility] Heart rate 2022-07-01 18:17:00 85 /min Universi ty [facility] Body temperature 2022-07-01 18:17:00 36.83 Dee [facility] ersity [facility] Body height 2022-07-01 18:17:00 162.6 cm Universi ty of [facility] Body weight 2022-07-01 18:17:00 109.77 kg Universi ty of [facility] BMI 2022-07-01 18:17:00 41.54 kg/m2 Universi ty [facility] Systolic blood 2021-07-01 18:53:00 119 mm[Hg] Univer sity of [facility] Diastolic blood 2021-07-01 18:53:00 81 mm[Hg] Unive rsity of [facility] Heart rate 2021-07-01 18:53:00 84 /min Universi ty [facility] Body temperature 2021-07-01 18:53:00 36.89 Dee Univ ersity [facility] Body height 2021-07-01 18:53:00 162.6 cm Universi ty [facility] Body weight 2021-07-01 18:53:00 99.701 kg Universi ty [facility] BMI 2021-07-01 18:53:00 37.73 kg/m2 Universi ty [facility] Procedures Procedure Date / Time Performed Performing Clinician Sour e LAB ONLY PAP 2021-07-01 19:17:00 Atkins, Carlos [facility] [place] SMEAR-LIQUID BASED Medical Branc h PAP SMEAR-LIQUID 2021-07-01 19:17:00 Carlos Atkins [facility] Encounters Start End Encounter Admission Attending Care Care Encounter Source Date/Time Date/Time Type Type Clinicians Facility Department ID 2021-01-[address] [facility] FIDEL [id number] Univers 02:05:25 ity of [facility] 2021-01-06 Emergency [facility] [id number] Univers 20:31:55 ity [facility] 2022-08-27 2022-08-27 Case RYLEY Lawrence 1.2.840.114 [id number] Univers 00:00:00 00:00:00 Management Cindy [place] [id number] ity [place].2.686 [place] [phone] [address] 2022-07-01 2022-07-01 Outpatient R CARLOS ATKINS [facility] [id number] Univers 13:30:00 13:54:34 ity of [facility] 2022-07-01 2022-07-01 Office Carlos Atkins [place] [id number] Univers 13:30:00 13:54:34 Visit Ramiro NUGENT [id number] i ty of [place] 4.2.7.2.686 [place] [phone] Al dical NAL [address] [place] [address] 2021-07-01 2021-07-01 Outpatient R CARLOS ATKINS [facility] [id number] Univers 13:45:00 14:20:55 ity of [facility] 2021-07-01 2021-07-01 Outpatient R CARLOS ATKINS [facility] [id number] Univers 13:45:00 14:20:55 ity [facility] 2021-07-01 2021-07-01 Office Carlos Atkins [facility] [id number] Univers 13:45:00 14:20:55 Visit Ramiro NUGENT [id number] i ty of [place] 4.2.7.2.686 [place] PROFESS[place] [phone] Al dic[address] 2021-01-14 2021-01-14 Telephone Carlos Atkins [facility] 1.2.840.114 [id number] Univers 00:00:00 00:00:00 Cam RAFFI 350.1.13.10 i ty of [place] 4.2.7.2.686 [place] [phone] [address] 2021-01-02 2021-01-02 Outpatient R DANA [facility] [id number] Univers 16:00:00 17:05:31 SHAWNEE itcorine [facility] 2021-01-02 2021-01-[address] [facility] 1.2.905.908 [id number] Univers 15:59:41 17:05:31 Shawnee NUGENT [id number] ity of Visit [place] 4.2.7.2.686 [place]ESS[place] [phone] [address] 2020-12-12 2020-12-12 Telephone Ricardo [facility] 1.2.840.114 [id number] Univers 00:00:00 00:00:00 Ramiro Nugent 350.1.13.10 i ty of [place] 4.2.7.2.686 [place] Profess[place] [phone] [address] 2020-12-10 2020-12-10 Nurse Nurse, [facility] 1.2.840.114 [id number] Univers 14:56:17 15:30:53 Visit Carlos Atkins 350.1.13.10 ity of [place] 4.2.7.2.686 [place] Profess[place] [phone] [address] 2020-12-10 2020-12-10 Outpatient R CARLOS ATKINS [facility] [id number] Univers 14:30:00 14:30:00 ity [facility] 2020-12-09 2020-12-09 Outpatient R CARLOS ATKINS [facility] [id number] Univers 10:45:00 10:45:00 ity [facility] 2020-12-03 2020-12-06 [facility] Carlos Atkins [facility] 1.2.840.114 [id number] Univers 15:41:00 15:05:00 Encounter Ramiro [place] 350.1.13.10 ity of [place] 4.2.7.2.686 [place] [phone] [address] 2020-12-05 2020-12-[address] [facility] 1.2.840.114 [id number] Univers 20:03:17 20:03:17 Event Anselmo [place] 350.1.13.10 i ty of [place] 4.2.7.2.686 [place] [phone] [address] 2020-12-04 2020-12-05 Anesthesia Alex Jara [facility] 1.2.84 0.114 [id number] Univers 22:25:00 12:25:00 Event FongAziza [place] 350.1.13.10 ity of [place] 4.2.7.2.686 [place] [phone] [address] 2020-12-03 2020-12-03 [facility] [id number] Univers 14:13:05 15:25:55 Ramiro Nugent 350.1.13.10 ity of Visit [place] 4.2.7.2.686 [place] Profess[place] [phone] Me dical nal [address] [facility] 2020-12-03 2020-12-03 Outpatient R CARLOS ATKINS [facility] [id number] Univers 14:15:00 14:15:00 ity of [facility] 2020-11-29 2020-11-29 Jive Developer 2, Adc Lab [facility] 1.2.840.114 [id number] Univers 14:25:36 14:40:36 Visit Carlos Atkins 350.1.13.10 ity of [place] 4.2.7.2.686 [place] Profess[place] [phone] Me dical nal [address] [facility] 2020-11-29 2020-11-29 Outpatient R [facility] [id number] Univers 14:30:00 14:30:00 ity of [facility] 2020-11-25 2020-11-25 Routine Carlos Atkins [facility] 1.2.187.449 [id number] Univers 15:14:06 16:29:36 Ramiro Nugent 350.1.13.10 ity of Visit [place] 4.2.7.2.686 [place] [phone] Al dical nal [address] [place] [address] 2020-11-25 2020-11-25 Outpatient R CARLOS ATKINS [facility] [id number] Univers 15:15:00 15:15:00 ity [facility] 2020-11-25 2020-11-25 Orders Doctor [place] 1.2.840.114 [id number] Univers 00:00:00 00:00:00 Only Unassigned, MAGDIEL 350.1.13.10 ity of [place] [facility] 4.2.7.2.686 Sukhdev as [phone] [address] 2020-11-22 2020-11-22 Jive Developer Ultrasound, [facility] 1.2 .840.114 [id number] Univers 13:25:01 13:55:01 Visit Armando Roque 350.1.13.10 ity of [place] 4.2.7.2.[place] [phone] Al dical [address] 2020-11-22 2020-11-22 Outpatient P [facility] [id number] Univers 13:30:00 [facility] 2020-11-21 2020-11-21 Outpatient R DANA [facility] [id number] Univers 14:45:00 14:45:00 [facility] 2020-11-21 2020-11-21 Outpatient R [facility] [id number] Univers 14:00:00 [facility] 2020-11-19 2020-11-19 Outpatient R DANA [facility] [id number] Univers 11:30:00 11:30:00 [facility] 2020-11-19 2020-11-[address] [facility] 1.2.840.114 [id number] Univers 00:00:00 00:00:00 Secure Msg Unassigned, [place] 350.1.13.10 ity of [place] [facility] 4.2.7.2.[place] [phone] Al dical NAL [address] [facility] 2020-11-18 2020-11-18 Routine Room, [facility] 1.2.840.1 [id number] Univers 10:05:39 11:15:17 Candice Atkinsvinicius Nugent 350.1.13.10 ity of Visit [place] 4.2.7.2.686 [place] [phone] Al dical nal [address] [place] [address] 2020-11-18 2020-11-18 Outpatient R [facility] [id number] Univers 10:00:00 10:00:00 ity of [facility] 2020-11-15 2020-11-15 Telephone Carlos Atkins [facility] 1.2.840.114 [id number] Univers 00:00:00 00:00:00 Ramiro Nugent 350.1.13.10 i ty of [place] 4.2.7.2.[place] [phone] Al dical nal [address] [place] [address] 2020-11-15 2020-11-15 Telephone Carlos Atkins [facility] 1.2.840.114 [id number] Univers 00:00:00 00:00:00 Ramiro Nugent 350.1.13.10 i ty of [place] 4.2.7.2.[place] [phone] Al dical nal [address] [facility] 2020-11-13 2020-11-13 [facility] 1.2.840.1 [id number] Univers 09:07:01 10:11:21 Carlos Atkins Ramiro Nugent 350.1.13.10 ity of Visit [place] 4.2.7.2.686 [place] [phone] Al dical nal 134 [facility] 2020-11-13 2020-11-13 Routine Room, [facility] 1.2.840.1 14 [id number] Univers 09:07:01 10:11:21 Carlos Atkins [place] 350.1.13.10 ity of Visit [place] 4.2.7.2.686 [place] [phone] Al dical [address] 2020-11-13 2020-11-13 Outpatient R [facility] [id number] Univers 09:00:00 09:00:00 ity of [facility] 2020-11-12 2020-11-12 Telephone Carlos Atkins [facility] 1.2.840.114 [id number] Univers 00:00:00 00:00:00 Cam [place] 350.1.13.10 i ty of [place] 4.2.7.2.686 [place] [phone] Al dic[address] 2020-11-12 2020-11-12 Telephone Carlos Atkins [facility] 1.2.840.114 [id number] Univers 00:00:00 00:00:00 Cam [place] 350.1.13.10 i ty of [place] 4.2.7.2.686 [place] [phone] Al dic[address] 2020-11-10 2020-11-10 Emergency Carlos Atkins [facility] 1.2.840.114 [id number] Univers 03:32:00 04:35:00 Cam [place] 350.1.13.10 i ty of [place] 4.2.7.2.686 [place] [phone] [facility] 083 [place] 2020-11-10 2020-11-10 Emergency Carlos Atkins [facility] 1.2.840.114 [id number] Univers 03:32:00 04:35:00 Cam [place] 350.1.13.10 i ty of [place] 4.2.7.2.686 [place] [phone] [facility] [address] [place] 2020-11-08 2020-11-08 Orders Doctor [place] 1.2.840.114 [id number] Univers 00:00:00 00:00:00 Only Unassigned, MAGDI[place] 350.1.13.10 ity of [place] [facility] 4.2.7.2.686 Sukhdev as [id number] [address] 2020-11-08 2020-11-08 Orders Doctor [place] 1.2.840.114 [id number] Univers 00:00:00 00:00:00 Only Unassigned, MAGDIEL 350.1.13.10 ity of [place] [facility] 4.2.7.2.686 Sukhdev as [phone] [address] 2020-11-06 2020-11-06 Routine Carlos Atkins [facility] 1.2.026.887 [id number] Univers 13:03:27 14:13:35 Cam [place] 350.1.13.10 ity of Visit [place] 4.2.7.2.686 [place] [phone] [address] 2020-11-06 2020-11-06 Routine Carlos Atkins [facility] 1.2.828.892 [id number] Univers 13:03:27 14:13:35 Cam [place] 350.1.13.10 ity of Visit [place] 4.2.7.2.686 [place] [phone] [address] 2020-11-06 2020-11-06 Outpatient R CARLOS ATKINS [facility] [id number] Univers 13:00:00 13:00:00 ity of [facility] 2020-10-31 2020-10-31 Telephone Carlos Atkins [facility] 1.2.840.114 [id number] Univers 00:00:00 00:00:00 Cam [place] 350.1.13.10 i ty of [place] 4.2.7.2.686 [place] [phone] [address] 2020-10-31 2020-10-31 Telephone Carlos Atkins [facility] 1.2.840.114 [id number] Univers 00:00:00 00:00:00 Cam [place] 350.1.13.10 i ty of [place] 4.2.7.2.686 [place] [phone] [address] 2020-10-28 2020-10-28 Nurse Nurse, [facility] 1.2.840.114 [id number] Univers 14:10:50 14:26:46 Visit Carlos Atkins Raffi 350.1.13.10 ity of [place] 4.2.7.2.686 [place] [id number] [address] 2020-10-28 2020-10-28 Outpatient R [facility] [id number] Univers 14:00:00 14:00:00 ity of [facility] 2020-10-28 2020-10-[address] [facility] 1.2.840.114 [id number] Univers 00:00:00 00:00:00 Secure Msg UnassignedRAFFI 350.1.13.10 ity of [place] 4.2.7.2.686 [place] [phone] [address] 2020-10-23 2020-10-23 Routine Dana [place] 1.2.357.420 [id number] Univers 16:06:20 16:58:45 Shawnee Nugent 350.1.13.10 ity of Visit [place] 4.2.7.2.686 [place] [phone] [address] 2020-10-23 2020-10-23 Outpatient R DANA [facility] [id number] Univers 16:15:00 16:15:00 SHAWNEE mart [facility] 2020-10-21 2020-10-21 Jive Developer Ultrasound, Jose [facility] 1.2 .840.114 [id number] Univers 13:43:37 14:28:37 Visit Mary Ellen Saenz EYELETTER 350.1. 13.10 ity of REGIONAL 4.2.7.2.686 Sukhdev as MATERNAL [phone] Med ical & CHILD [address] [place] [address] 2020-10-21 2020-10-21 Outpatient P [facility] [id number] Univers 13:45:00 13:45:00 ity of [facility] 2020-10-09 2020-10-[address] [facility] 1.2.840.114 [id number] Univers 00:00:00 00:00:00 Secure Msg Unassigned RAFFI 350.1.13.10 ity of [place] [facility] 4.2.7.2.[place] [phone] Al dical NAL 134 [facility] 2020-10-08 2020-10-08 Routine Carlos Atkins [facility] 1.2.082.960 [id number] Univers 15:39:08 16:17:14 Ramiro Raffi 350.1.13.10 ity of Visit [place] 4.2.7.2.[place] [phone] Al dical nal 134 [facility] 2020-10-08 2020-10-08 Outpatient R CARLOS ATKINS [facility] [id number] Univers 15:30:00 15:30:00 ity of [facility] 2020-09-13 2020-09-13 Jive Developer 2, Adc Lab [facility] 1.2.840.114 [id number] Univers 08:44:03 08:59:03 Visit Carlos Atkins Ramiro Nugent 350.1.13.10 ity of [place] 4.2.7.2.[place] [phone] [facility] 2020-09-13 2020-09-13 Outpatient R [facility] [id number] Univers 08:30:00 08:30:00 ity of [facility] 2020-09-12 2020-09-12 [facility] 1.2.840.114 [id number] Univers 00:00:00 00:00:00 Shawnee Nugent 350.1.13.10 i ty of [place] 4.2.7.2.[place] [phone] Al dical nal [address] [place] [address] 2020-09-11 2020-09-[address] [facility] 1.2.734.273 [id number] Univers 00:00:00 00:00:00 Management Shawnee Nugent 350.1.13.10 ity of [place] 4.2.7.2.[place] [phone] Al dical nal 134 [facility] 2020-09-10 2020-09-10 Jive Developer 2, Adc Lab [facility] 1.2.840.114 [id number] Univers 14:24:19 14:39:19 Visit SuadpageShawnee monreal Raffi 350.1.13.10 ity of [place] 4.2.7.2.[place] [phone] [facility] 353 [facility] 2020-09-10 2020-09-10 Outpatient R [facility] [id number] Univers 14:30:00 14:30:00 ity of [facility] 2020-09-10 2020-09-[address] [facility] 1.2.218.531 [id number] Univers 13:41:38 14:20:52 Shawnee Raffi 350.1.13.10 ity of Visit [place] 4.2.7.2.[place] [phone] [facility] 134 [facility] 2020-08-30 2020-08-30 Telephone Carlos Atkins [facility] 1.2.840.114 [id number] Univers 00:00:00 00:00:00 Ramiro Nugent 350.1.13.10 i ty of [place] 4.2.7.2.[place] [phone] [facility] 134 [facility] 2020-08-27 2020-08-27 Jive Developer Ultrasound, [facility] 1.2 .840.114 [id number] Univers 08:09:38 08:39:38 Visit Delio Galeano EYELETTER 350.1.13.1 0 ity of REGIONAL 4.2.7.2.686 Sukhdev as MATERNAL [phone] [facility] ical & CHILD [address] [place] [address] 2020-08-27 2020-08-27 Outpatient P [facility] [id number] Univers 08:00:00 08:00:00 ity [facility] 2020-08-12 2020-08-12 Routine Carlos Atkins [facility] 1.2.500.132 [id number] Univers 10:57:32 11:55:43 Ramiro Nugent 350.1.13.10 ity of [place] 4.2.7.2.686 [place] [phone] Al dical nal 134 [facility] 2020-08-12 2020-08-12 Outpatient R CARLOS ATKINS [facility] [id number] Univers 11:00:00 11:00:00 ity of [facility] 2020-07-30 2020-07-30 Jive Developer Cherelle, Jose [facility] 1.2 .840.114 [id number] Univers 13:37:12 14:37:12 Visit Erica Mccarty EYELETTER 350.1.13.10 ity of REGIONAL 4.2.7.2.686 Sukhdev as MATERNAL [phone] Med ical & CHILD [address] [place] [address] 2020-07-30 2020-07-30 Outpatient P [facility] [id number] Univers 13:45:00 13:45:00 ity of [facility] 2020-07-15 2020-07-15 Jive Developer 2, Adc Lab [facility] 1.2.840.114 [id number] Univers 09:53:14 10:08:14 Visit Carlos Atkins 350.1.13.10 ity [place] [phone] Al dical [facility] 2020-07-15 2020-07-15 Routine Carlos Atkins [facility] [id number] Univers 08:43:48 08:58:48 Ramiro Nugent 350.1.13.10 ity of [place] [id number] [phone] Al dical nal [facility] 2020-07-15 2020-07-15 Outpatient R CARLOS [facility] [id number] Univers 08:45:00 08:45:00 ity [facility] 2020-07-08 2020-07-08 Telephone Carlos Atkins [facility] [id number] Univers 00:00:00 00:00:00 Ramiro Nugent [id number] i [id number] [phone] Al dical nal 134 [facility] 2020-06-26 2020-06-26 Telephone Carlos Atkins [facility] [id number] Univers 00:00:00 00:00:00 Cam Raffi [id number] [id number] [phone] Al dic[address] 2020-06-17 2020-06-17 Office Carlos Atkins [facility] [id number] Univers 08:25:38 10:05:24 Visit Ramiro Nugent [id number] [id number] [phone] Al dic[address] 2020-06-17 2020-06-17 Outpatient R CARLOS ATKINS [facility] [id number] Univers 08:30:00 08:30:00 ity of [facility] 2020-06-17 2020-06-17 Orders Doctor BERLIN [id number] [id number] Univers 00:00:00 00:00:00 Only Unassigned, MAGDIEL [id number] ity of [place] [facility] [id number] Sukhdev as [phone] [address] 2020-06-10 2020-06-10 [facility] [id number] Univers 10:30:00 10:30:00 MARIPOSA ity o f [facility] 2020-06-10 2020-06-10 Outpatient R [facility] [id number] Univers 10:00:00 10:00:00 ity of [facility] 2020-05-13 2020-05-13 Initial Carlos Atkins [facility] [id number] Univers 14:38:10 16:11:12 Ramiro Nugent [id number] ity of Visit [id number] [phone] [address] 2020-05-13 2020-05-13 Routine [facility] [id number] Univers 10:26:38 11:39:02 Mariposa Fox EYELETTER [id number] ity of Visit REGIONAL [id number] Sukhdev as MATERNAL [phone] [facility] [address] [place] [address] 2020-05-13 2020-05-13 Outpatient R [facility] [id number] Univers 11:00:00 11:00:00 MARIPOSA etienne [facility] 2020-05-13 2020-05-13 Orders Doctor [place] 1.2.840.114 [id number] Univers 00:00:00 00:00:00 Only Unassigned, MAGDIEL [id number] ity of [place] [facility] [id number] Sukhdev as [phone] [address] 2020-05-02 2020-05-02 [facility] [id number] Univers 00:00:00 00:00:00 Mariposa Fox EYELETTER [id number] ity of REGIONAL [id number] Sukhdev as MATERNAL [phone] [facility] & CHILD [address] [place] [address] 2020-04-17 2020-04-17 Patient Doctor ARCLAUDETTE [id number] Univers 00:00:00 00:00:00 Secure Msg Unassigned, EYELETTER [id number] ity of [place] REGIONAL [id number] Sukhdev as MATERNAL [phone] [facility] [address] [place] [address] 2020-04-15 2020-04-15 Outpatient R [facility] [id number] Univers 08:30:00 08:30:00 MARIPOSA etienne [facility] 2020-04-15 2020-04-15 Orders Doctor [place] 1.2.840.114 [id number] Univers 00:00:00 00:00:00 Only Unassigned, MAGDIEL [id number] ity of [place] [facility] [id number] Sukhdev as [phone] [address] Results This patient has no known results.
[2023-01-01] MEDS ORDERED: dexAMETHasone 10 MG/ML VIAL ONE (08:25)
[2023-01-01] MEDS ORDERED: KETOROLAC 30 MG/ML INJ ONE (08:26)
[2023-01-01] MEDS ORDERED: CYCLOBENZAPRINE 10 MG TAB ONE (08:26)
--- NOTE | 2023-01-01 10:18 | RAD REPORT ---
EXAM DESCRIPTION: RAD - Lumbar Spine 3 Views - 01/01/2023 9:54 am CLINICAL HISTORY: LOWER BACK PAIN Radiculopathy COMPARISON: No comparisons FINDINGS: Vertebral body heights appear maintained. No compression fracture noted. Disc spaces are m aintained. No spondylolysis or spondylolisthesis. IMPRESSION: Negative study.
--- NOTE | 2023-01-01 10:35 | EDPHYS ---
Physician Documentation [facility] Name: Pavithra Chester Age: 27 yrs Sex: Female : 1995 Arrival Date: 01/01/2023 Time: 07:08 Bed 8 Private MD: ED Physician Chace Ruffin HPI: 01/01 08:17 This 27 yrs old Female presents to ER via Ambulatory with complaints of Back Pain. sb4 08:17 The patient presents with pain that is acute, with no known mechanism of injury. The sb4 symptoms are located in the L5 and sacrum. Onset: The symptoms/episode began/occurred yesterday. The pain does not radiate. Associated signs and symptoms: The patient has no apparent associated signs or symptoms. Modifying factors: The patient symptoms are alleviated by remaining still, the patient symptoms are aggravated by any movement. The patient has not experienced similar symptoms in the past. The patient has not recently seen a physician. 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 - Social history:: Smoking status: Reported history of juuling and/or vaping. ROS: 08:17 Constitutional: Negative for fever, chills, and weight loss, sb4 08:17 Back: Positive for pain with movement, 08:17 All other systems are negative, Exam: 08:17 Head/Face: Normocephalic, atraumatic. Eyes: Extra-ocular motions intact. Periorbital sb4 areas with no swelling, redness, or edema. ENT: Mucous membranes moist. Skin: Warm, dry with normal turgor. Normal color with no rashes, no lesions, and no evidence of cellulitis. MS/ Extremity: Pulses equal, no cyanosis. Neurovascular intact. Full, normal range of motion. 08:17 Constitutional: The patient appears alert, awake, obese, 08:17 Back: ROM is painful, with all movement, normal spinal alignment noted, CVA tenderness, is absent, muscle spasm, is not present, Straight leg raises: of both lower extremities does not illicit pain, 08:17 Neuro: Exam negative for acute changes, focal neuro deficits, motor deficits, sensory deficits, cerebellar deficits, altered mental status, Vital Signs: 07:25 BP 122 / 83; Pulse 79; Resp 18; Pulse Ox 100% on R/A; Weight 106.59 kg; Height 5 ft. 4 ph in. ; 09:23 BP 117 / 80; Pulse 56; Resp 18; Pulse Ox 100% on R/A; ph 10:30 BP 121 / 78; Pulse 58; Resp 18; Pulse Ox 98% on R/A; ph 07:25 Body Mass Index 40.34 (106.59 kg, 162.56 cm) ph MDM: 08:00 Patient medically screened. sb4 08:17 Differential diagnosis: arthritis, Fracture Ligament Injury Obesity sb4 Pyelonephritis ruptured disc, spinal injury, sprain, vertebral fracture. 10:34 Data reviewed: vital signs, nurses notes, radiologic studies, and as a result, I will sb4 discharge patient. Counseling: I had a detailed discussion with the patient and/or guardian regarding the historical points, exam findings, and any diagnostic results supporting the discharge/admit diagnosis, radiology results, the need for outpatient follow up, a orthopedic surgeon, to return to the emergency department if symptoms worsen or persist or if there are any questions or concerns that arise at home. 01/01 08:10 Order name: Lumbar Spine (3 Views) XRAY; Complete Time: 10:26 sb4 Administered Medications: 08:20 Drug: Ketorolac IM 30 mg IM once Route: IM; Site: right deltoid; ld1 09:00 Follow up: Response: No adverse reaction ph 08:20 Drug: Dexamethasone IM 10 mg IM once Route: IM; Site: left deltoid; ld1 09:00 Follow up: Response: No adverse reaction ph 08:20 Drug: Cyclobenzaprine PO 10 mg PO once Route: PO; ld1 09:00 Follow up: Response: No adverse reaction ph Disposition: 12:09 Co-signature as Attending Physician, Chace Ruffin MD I reviewed the patient's care rt provided by the Advanced Practice Provider and agree with the diagnosis and treatment plan. Disposition Summary: 01/01/23 10:34 Discharge Ordered Notes: Location: Home sb4 Problem: new sb4 Symptoms: have improved sb4 Condition: Stable sb4 Diagnosis - Strain of muscle, fascia and tendon of lower back sb4 Followup: sb4 - With: Private Physician - When: As needed - Reason: Recheck today's complaints, Re-evaluation by your physician Discharge Instructions: - Discharge Summary Sheet sb4 - Low Back Sprain or Strain Rehab sb4 Forms: - Work release form sb4 - Medication Reconciliation Form sb4 - Thank You Letter sb4 - Antibiotic Education sb4 - Prescription Opioid Use sb4 - Patient Portal Instructions sb4 - Leadership Thank You Letter sb4 Prescriptions: - Cyclobenzaprine 10 mg Oral Tablet - take 1 tablet ORAL route every 8 hours As needed; 30 tablet; Refills: 0, sb4 Product Selection Permitted - Diclofenac Sodium 75 mg Oral Tablet Sustained Release - take 1 tablet ORAL route 2 times per day; 30 tablet; Refills: 0, Product sb4 Selection Permitted - Medrol (Horacio) 4 mg Oral Tablets, Dose Pack - take 1 tablet ORAL route as directed - follow package instructions; 1 packet; sb4 Refills: 0, Product Selection Permitted Signatures: Dispatcher [employer] Kika Chacko RN RN Lisa Howard RN RN ld1 Iza Ruffin PADebbie PADebbie sb4 Chace Ruffin MD MD rt
--- NOTE | 2023-01-01 10:35 | ER ---
Nurse's Notes [facility] Name: Pavithra Chester Age: 27 yrs Sex: Female : 1995 Arrival Date: 01/01/2023 Time: 07:08 Bed 8 Private MD: Diagnosis: Strain of muscle, fascia and tendon of lower back Presentation: 01/01 07:25 Chief complaint: Patient states: Low back pain that started yesterday, worse w/ ph movement, denies injury or urinary symptoms. Coronavirus screen: Vaccine status: Patient reports receiving the 2nd dose of the covid vaccine. Ebola Screen: No symptoms or risks identified at this time. Initial Sepsis Screen: Does the patient meet any 2 criteria? No. Patient's initial sepsis screen is negative. Does the patient have a suspected source of infection? No. Patient's initial sepsis screen is negative. Risk Assessment: Do you want to hurt yourself or someone else? Patient reports no desire to harm self or others. 07:25 Method Of Arrival: Ambulatory ph 07:25 Acuity: LARRY 4 ph 07:31 Onset of symptoms was January 01, 2023. ph Triage Assessment: 07:32 General: Appears in no apparent distress. Behavior is calm, cooperative, appropriate ph for age, Denies fever, feeling ill. Pain: Complains of pain in coccyx. Neuro: Rivero Agitation-Sedation Scale (RASS): 0 - Alert and Calm Level of Consciousness is awake, alert, obeys commands, Oriented to person, place, time, situation. Cardiovascular: Capillary refill < 3 seconds in bilateral fingers. Respiratory: Airway is patent Respiratory effort is even, unlabored. GI: Patient currently denies abdominal pain, nausea, vomiting. : Reports pain in lower back Denies burning with urination, urinary frequency. Derm: Skin is pink, warm \T\ dry. Musculoskeletal: Circulation, motion, and sensation intact. Range of motion: intact in all extremities. 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 - Social history:: Smoking status: Reported history of juuling and/or vaping. Screenin:31 [facility] Fall Risk Assessment (Adult) History of falling in the last 3 months, ph including since admission No falls in past 3 months (0 pts) Score/Fall Risk Level 0 - 2 = Low Risk Oriented to surroundings, Maintained a safe environment, Hourly rounding (assess needs \T\ fall precautionary measures) done, Used ambulatory aids as needed (educated on \T\ assisted with). Abuse screen: Denies threats or abuse. Denies injuries from another. Nutritional screening: No deficits noted. Tuberculosis screening: No symptoms or risk factors identified. Assessment: 09:24 General: SEE TRIAGE ASSESSMENT. ph Vital Signs: 07:25 BP 122 / 83; Pulse 79; Resp 18; Pulse Ox 100% on R/A; Weight 106.59 kg; Height 5 ft. 4 ph in. ; 09:23 BP 117 / 80; Pulse 56; Resp 18; Pulse Ox 100% on R/A; ph 10:30 BP 121 / 78; Pulse 58; Resp 18; Pulse Ox 98% on R/A; ph 07:25 Body Mass Index 40.34 (106.59 kg, 162.56 cm) ph ED Course: 07:14 Patient arrived in ED. ts1 07:25 Kika Cruz, RN is Primary Nurse. ph 07:30 Triage completed. ph 07:31 Arm band placed on. ph 07:31 Patient has correct armband on for positive identification. Bed in low position. Call ph light in reach. Side rails up X 1. Pulse ox on. NIBP on. Door closed. Noise minimized. Warm blanket given. Pillow given. 08:00 Iza Ruffin PA-C is PHCP. sb4 08:00 Chace Ruffin MD is Attending Physician. sb4 09:35 Radiology exam delayed due to test not completed at this time. ml 09:56 Lumbar Spine (3 Views) XRAY In Process Unspecified. EDMS 11:00 No provider procedures requiring assistance completed. Patient did not have IV access ph during this emergency room visit. Administered Medications: 08:20 Drug: Ketorolac IM 30 mg IM once Route: IM; Site: right deltoid; ld1 09:00 Follow up: Response: No adverse reaction ph 08:20 Drug: Dexamethasone IM 10 mg IM once Route: IM; Site: left deltoid; ld1 09:00 Follow up: Response: No adverse reaction ph 08:20 Drug: Cyclobenzaprine PO 10 mg PO once Route: PO; ld1 09:00 Follow up: Response: No adverse reaction ph Medication: 07:31 VIS not applicable for this client. ph Outcome: 10:34 Discharge ordered by MD. godoy 11:00 Discharged to home ambulatory, ph 11:00 Condition: good 11:00 Discharge instructions given to patient, Instructed on discharge instructions, follow up and referral plans. medication usage, Demonstrated understanding of instructions, follow-up care, medications, Prescriptions given X 3, 11:01 Patient left the ED. hb Signatures: Dispatcher [employer] EDMS Marisol Lewis Patricia, RN RN Lin Porras RN RN Lisa Howard RN RN ld1 Iza Ruffin PA-C PA-C sb4 Génesis Raymundo PAS PAS ts1
[2023-01-01 11:06] VITALS: O2SAT 100
[2023-01-01 11:07] VITALS: BP 117/80
== END 2023-01-01 11:01 | disposition home or self-care (01) ==
LOC: ER 07:08
DX: S39.012A Strain of muscle, fascia and tendon of lower back, initial encounter (principal); Z88.1 Allergy status to other antibiotic agents
CPT/HCPCS: 72100; 96372; 99284; J1100

== ENCOUNTER 2023-08-01 21:41 | Emergency (ER) | payer OTHER ==
--- OUTSIDE RECORDS SUMMARY | 2023-08-01 21:46 | XMS REPORT | Continuity of Care Document ---
Author Name Unknown Address [address] [place] [address] [facility] Address [address] [place] [address] Care Team Providers Care Cloth Colors Examiner Name Role Phone MARIPOSA WEINSTEIN Primary Care Physician Unav ailable CARLOS ATKINS Attending Clinician Unavailable GC_GCBZW_Aidan_S Attending Clinician Unavaila Cindy Burns MA Attending Clinician Unavailreanna Atkins MD, Carlos Rubio Attending Clinician [phone] SHAWNEE CORTEZ Attending Clinician Unavailable Shawnee Cortez PA-C Attending Clinician [phone] Nurse, [facility] Attending Clinician Un available Anselmo Cuadra CRNA Attending Clinician [phone] Marek Samuels MD, Leonard Attending Clinician [phone] Aziza Fong MD Attending Clinician + [phone] [facility] Attending Clinician Unavailable Doctor Unassigned, [place] Attending Clinician U navailable Ultrasound, [facility] Mfm Attending Clinician Unavailjess Roque MD, Armando Bean Attending Clinician [phone] Room, [facility] Nst Attending Clinician Unavailable Ultrasound, Ang-m Attending Clinician Unavaila vicente Farfan MD, [place] Attending Clinician + Delio Galeano MD Attending Clinician [phone] Erica Mccarty MD Attending Clinician [phone] MARIPOSA WEINSTEIN Attending Clinician Unavail able Mariposa Gallegos Attending Clinician + CARLOS ATKINS Admitting Clinician Unavailable [email or web address]_Kadiyala_S Admitting Clinician UnavailCarlos Em MD Admitting Clinician [phone] Payers Payer Name Policy Type Policy Number Effective Date Expirati on Date Source [facility] MEDICAID [id number] 2020 00:00:00 MEDICAID PENDING PENDING 2020 00:00:00 Problems Condition Name Condition Details Condition Category Status Onset Date Resolution Date Last Treatment Date Treating Clinician Comments Source Morbid obesity with body mass index of 40.0-49.9 Morbid obesity with body mass index of 40.0-49.9 Disease Active 5- 00:00: 00 [facility] History of asthma History of asthma Disease Active 3 00:00: 00 [facility] 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 Refer to colpo clinic [facility] Allergies, Adverse Reactions, Alerts Allergy Name Allergy Type Status Severity Reaction(s) Onset Date Inactive Date Treating Clinician Comments Source AZITHROM YCIN DRUG INGREDI Active Hives 09-16 00:00: 00 [facility] Azithrom ycin Propensi ty to adverse reaction s Active Hives 09-16 00:00: 00 [facility] PENICILL INS Drug Class Active Hives 2014-03 00:00: 00 [facility] Penicill ins Propensi ty to adverse reaction s Active Hives 2014-03 00:00: 00 [facility] Amoxicil robert-Pot Clavulan ate Propensi ty to adverse reaction s Active Hives 2014-03 00:00: 00 [facility] Penicill ins Propensi ty to adverse reaction s Active Hives 2014-03 00:00: 00 [facility] AMOXICIL ROBERT-POT CLAVULAN ATE DRUG Active Hives 2014-03 00:00: 00 [facility] Social History Social Habit Start Date Stop Date Quantity Comments Source ASSERTION [facility] to SARS-CoV-2 (event) 2022-06-21 00:00:00 2022-07-01 09:55:00 Not sure [facility] Alcohol Comment 2022-07-01 00:00:00 2022-07-01 00:00:00 once or twice a month [facility] History of Social function 2021-07-01 00:00:00 2021-07-01 00:00:00 [facility] Cigarettes smoked current (pack per day) - Reported 2020-04-15 00:00:00 2020-04-15 00:00:00 [facility] Tobacco use and exposure 2020-04-15 00:00:00 2020-04-15 00:00:00 Former smokeless tobacco user [facility] Alcohol intake 2020-04-15 00:00:00 2020-04-15 00:00:00 Ex-drinker (finding) [facility] History of tobacco use 2020-04-13 00:00:00 Cigarette Smoker [facility] Sex Assigned At 1995 00:00:00 1995 00:00:00 [facility] Smoking Status Start Date Stop Date Source Occasional tobacco smoker 2020-05-13 00:00:00 [facility] Ex-smoker 2020-04-15 00:00:00 2020-04-15 00:00:00 [facility] Medications Ordered Medication Name Filled Medication Name Start Date Stop Date Current Medication? Ordering Clinician Indication Dosage Frequency Signature (SIG) Comments Components Source acetaminoph en (TYLENOL ORAL) 07-01 14:00: 56 Yes Take by mouth. [facility] 25/iron fum/folic/d cunningham (-1 ORAL) 2020-03 0- 08:34: 38 12-06 00:00 :00 No Take by mouth. [facility] vitamin w/FA tablet 2020-03 0- 00:00: 00 07-01 00:00 :00 No [id number] 1{tbl} Take 1 tablet by mouth daily. [facility] docusate calcium 240 mg capsule 2020-03 0- 00:00: 00 07-01 00:00 :00 No [id number] 240mg Take 1 capsule by mouth once daily as needed for Constipati on. [facility] ferrous sulfate 325 mg (65 mg iron) tablet 2020-03 0 00:00: 00 07-01 00:00 :00 No [id number] 325mg Take 1 tablet by mouth 2 (two) times daily. [facility] ibuprofen 600 mg tablet 2020-03 00:00: 00 07-01 00:00 :00 No [id number] 600mg Take 1 tablet by mouth every 6 (six) hours as needed (Pain). Take with food or milk. [facility] Immunizations Ordered Immunization Name Filled Immunization Name Date Status Comments Source Varicella (varivax)(chicken pox) 2020-12-06 00:00:00 Completed [facility] Varicella (varivax)(chicken pox) 2020-12-06 00:00:00 Completed [facility] Varicella (varivax)(chicken pox) 2020-12-06 00:00:00 Completed [facility] Varicella (varivax)(chicken pox) 2020-12-06 00:00:00 Completed [facility] TDAP 2020-10-08 00:00:00 Completed [facility] TDAP 2020-10-08 00:00:00 Completed [facility] TDAP 2020-10-08 00:00:00 Completed [facility] TDAP 2020-10-08 00:00:00 Completed [facility] TDAP Unknown Completed [facility] TDAP Unknown Completed [facility] TDAP Unknown Completed [facility] Vital Signs Vital Name Observation Time Observation Value Comments S mal Systolic blood pressure 2022-07-01 18:17:00 130 mm[Hg] [place] [facility] Diastolic blood pressure 2022-07-01 18:17:00 80 mm[Hg] [facility] Heart rate 2022-07-01 18:17:00 85 /min [facility] Body temperature 2022-07-01 18:17:00 36.83 Dee [facility] Body height 2022-07-01 18:17:00 162.6 cm [facility] Body weight 2022-07-01 18:17:00 109.77 kg [facility] BMI 2022-07-01 18:17:00 41.54 kg/m2 [facility] Systolic blood pressure 2021-07-01 18:53:00 119 mm[Hg] [facility] Diastolic blood pressure 2021-07-01 18:53:00 81 mm[Hg] [facility] Heart rate 2021-07-01 18:53:00 84 /min Un[facility] Body temperature 2021-07-01 18:53:00 36.89 Dee [facility] Body height 2021-07-01 18:53:00 162.6 cm [facility] Body weight 2021-07-01 18:53:00 99.701 kg [facility] BMI 2021-07-01 18:53:00 37.73 kg/m2 [facility] Procedures Procedure Date / Time Performed Performing Clinicia n Source LAB ONLY PAP SMEAR-LIQUID BASED 2021-07-01 19:17:00 Carlos Atkins [facility] PAP SMEAR-LIQUID BASED-CP 2021-07-01 19:17:00 Carlos Atkins [facility] Encounters Start Date/Time End Date/Time Encounter Type Admission Type Attending Clinicians Care Facility Care Department Encounter ID Source 2021-01-07 02:05:25 Outpatient P [facility] [id number] [facility] 2021-01-06 20:31:55 Emergency [facility] [id number] [facility] 2023-07-05 15:00:00 2023-07-05 15:00:00 Outpatient R CARLOS ATKINS [facility] [id number] [facility] 2023-01-02 00:00:00 2023-01-02 00:00:00 Outpatient GC_GCBZW_Ka diyala_S [facility] [id number] [facility] 2022-08-27 00:00:00 2022-08-27 00:00:00 Case Management Cindy Lawrence 1.2.840.114 350.1.13.10 4.2.7.2.686 [id number] [facility] 2022-07-01 13:30:00 2022-07-01 13:54:34 Outpatient R [facility]ILLY [facility] [id number] [facility] 2022-07-01 13:30:00 2022-07-01 13:54:34 Office Visit Milly [facility] 1.2.840.114 350.1.13.10 4.2.7.2.686 [id number] [facility] 2021-07-01 13:45:00 2021-07-01 14:20:55 Outpatient R CARLOS ATKINS [facility] [id number] [facility] 2021-07-01 13:45:00 2021-07-01 14:20:55 Office Visit Milly [facility] 1.2.840.114 350.1.13.10 4.2.7.2.686 [id number] [facility] 2021-07-01 13:45:00 2021-07-01 14:20:55 [id number] 2021-01-14 00:00:00 2021-01-14 00:00:00 Telephone Milly [facility] 1.2.840.114 350.1.13.10 4.2.7.2.686 [id number] [facility] 2021-01-02 16:00:00 2021-01-02 17:05:31 Outpatient R SHANWEE CORTEZ [facility] [id number] [facility] 2021-01-02 15:59:41 2021-01-02 17:05:31 [facility] 1.2.840.114 350.1.13.10 4.2.7.2.686 [id number] [facility] 2020-12-12 00:00:00 2020-12-12 00:00:00 Telephone Carlos Atkins [facility] 1.2.840.114 350.1.13.10 4.2.7.2.686 [id number] [facility] 2020-12-10 14:56:17 2020-12-10 15:30:53 Nurse Visit Nurse, [facility] Carlos Atkins [facility] 1.2.840.114 350.1.13.10 4.2.7.2.686 [id number] [facility] 2020-12-10 14:30:00 2020-12-10 14:30:00 Outpatient R CARLOS ATKINS [facility] [id number] [facility] 2020-12-09 10:45:00 2020-12-09 10:45:00 Outpatient R CARLOS ATKINS [facility] [id number] [facility] 2020-12-03 15:41:00 2020-12-06 15:05:00 Hospital Encounter Carlos Atkins [facility] 1.2.840.114 350.1.13.10 4.2.7.2.686 [id number] [facility] 2020-12-05 20:03:17 2020-12-05 20:03:17 Anesthesia Event Anselmo Cuadra [facility] 1.2.840.114 350.1.13.10 4.2.7.2.686 [id number] [facility] 2020-12-04 22:25:00 2020-12-05 12:25:00 Anesthesia Event Alex Jara, [facility] 1.2.840.114 350.1.13.10 4.2.7.2.686 [id number] [facility] 2020-12-03 14:13:05 2020-12-03 15:25:55 Routine Visit Carlos Atkins [facility] 1.2.840.114 350.1.13.10 4.2.7.2.686 [id number] 134 [id number] [facility] 2020-12-03 14:15:00 2020-12-03 14:15:00 Outpatient R CARLOS ATKINS [facility] [id number] [facility] 2020-11-29 14:25:36 2020-11-29 14:40:36 Restaurant Associate Visit 2, Adc Lab Carlos Atkins [facility] 1.2.840.114 350.1.13.10 4.2.7.2.686 [id number] [facility] 2020-11-29 14:30:00 2020-11-29 14:30:00 Outpatient R [facility] [id number] [facility] 2020-11-25 15:14:06 2020-11-25 16:29:36 Routine Visit Carlos Atkins [facility] 1.2.840.114 350.1.13.10 4.2.7.2.686 [id number] [facility] 2020-11-25 15:15:00 2020-11-25 15:15:00 Outpatient R MILLY [facility] [id number] [facility] 2020-11-25 00:00:00 2020-11-25 00:00:00 Orders Only Doctor Unassigned, [place] [facility] 1..114 350.1.13.10 4.2.7.2.686 [id number] [facility] 2020-11-22 13:25:01 2020-11-22 13:55:01 Restaurant Associate Visit Ultrasound, Adc Armando Cardenas [facility] 1..114 350.1.13.10 4.2.7.2.686 [id number] [facility] 2020-11-22 13:30:00 2020-11-22 13:30:00 Outpatient P [facility] [id number] [facility] 2020-11-21 14:45:00 2020-11-21 14:45:00 Outpatient R SHAWNEE CORTEZ [facility] [id number] [facility] 2020-11-21 14:00:00 2020-11-21 14:00:00 Outpatient R [facility] [id number] [facility] 2020-11-19 11:30:00 2020-11-19 11:30:00 Outpatient R SHAWNEE CORTEZ [facility] [id number] [facility] 2020-11-19 00:00:00 2020-11-19 00:00:00 Patient Secure Msg Doctor Unassigned, [place] [facility] 1.284.114 350.1.13.10 4.2.7.2.686 [id number] [facility] 2020-11-18 10:05:39 2020-11-18 11:15:17 Routine Visit Room, Adc Carlos Padilla [facility] 1.284.114 350.1.13.10 4.2.7.2.686 [id number] [facility] 2020-11-18 10:00:00 2020-11-18 10:00:00 Outpatient R [facility] [id number] [facility] 2020-11-15 00:00:00 2020-11-15 00:00:00 Telephone [facility] 1.2.840.114 350.1.13.10 4.2.7.2.686 [id number] [facility] 2020-11-15 00:00:00 2020-11-15 00:00:00 Telephone Carlos Atkins [facility] nal Building 1.2.840.114 350.1.13.10 4.2.7.2.686 [id number] [facility] 2020-11-13 09:07:01 2020-11-13 10:11:21 Routine Visit Room, [facility] Carlos Atkins [facility] 1.2.840.114 350.1.13.10 4.2.7.2.686 [id number] [facility] 2020-11-13 09:07:01 2020-11-13 10:11:21 Routine Visit Room, [facility] Carlos Atkins [facility] 1.2.840.114 350.1.13.10 4.2.7.2.686 [id number] [facility] 2020-11-13 09:00:00 2020-11-13 09:00:00 Outpatient R [facility] [id number] [facility] 2020-11-12 00:00:00 2020-11-12 00:00:00 Telephone Carlos Atikns [facility] 1.2.840.114 350.1.13.10 4.2.7.2.686 [id number] [facility] 2020-11-12 00:00:00 2020-11-12 00:00:00 Telephone Carlos Atkins [facility] 1.2.840.114 350.1.13.10 4.2.7.2.686 [id number] [facility] 2020-11-10 03:32:00 2020-11-10 04:35:00 Emergency Carlos Atkins [facility] 1.2.840.114 350.1.13.10 4.2.7.2.686 [id number] [facility] 2020-11-10 03:32:00 2020-11-10 04:35:00 Emergency Milly Carlos [facility] 1.2.840.114 350.1.13.10 4.2.7.2.686 [id number] [facility] 2020-11-08 00:00:00 2020-11-08 00:00:00 Orders Only Doctor Unassigned, [place] [facility] 1.2.840.114 350.1.13.10 4.2.7.2.686 [id number] [facility] 2020-11-08 00:00:00 2020-11-08 00:00:00 Orders Only Doctor Unassigned, [place] [facility] 1.2.840.114 350.1.13.10 4.2.7.2.686 [id number] [facility] 2020-11-06 13:03:27 2020-11-06 14:13:35 Routine Visit Carlos Atkins [facility] 1.2.840.114 350.1.13.10 4.2.7.2.686 [id number] 134 [id number] [facility] 2020-11-06 13:03:27 2020-11-06 14:13:35 Routine Visit Carlos Atkins [facility] 1.2.840.114 350.1.13.10 4.2.7.2.686 [id number] [facility] 2020-11-06 13:00:00 2020-11-06 13:00:00 Outpatient R CARLOS ATKINS [facility] [id number] [facility] 2020-10-31 00:00:00 2020-10-31 00:00:00 Telephone Carlos Atkins [facility] 1.2.840.114 350.1.13.10 4.2.7.2.686 [id number] 134 [id number] [facility] 2020-10-31 00:00:00 2020-10-31 00:00:00 Telephone aCrlos Atkins [facility] 1.2.840.114 350.1.13.10 4.2.7.2.686 [id number] 134 [id number] [facility] 2020-10-28 14:10:50 2020-10-28 14:26:46 Nurse Visit Nurse, [facility] Carlos Atkins [facility] 1.2.840.114 350.1.13.10 4.2.7.2.686 [id number] [facility] 2020-10-28 14:00:00 2020-10-28 14:00:00 Outpatient R [facility] [id number] [facility] 2020-10-28 00:00:00 2020-10-28 00:00:00 Patient Secure Msg Doctor Unassigned, [place] [facility] 1.2.840.114 350.1.13.10 4.2.7.2.686 [id number] 134 [id number] [facility] 2020-10-23 16:06:20 2020-10-23 16:58:45 Routine Visit Shawnee Cortez [facility] 1.2.840.114 350.1.13.10 4.2.7.2.686 [id number] 134 [id number] [facility] 2020-10-23 16:15:00 2020-10-23 16:15:00 Outpatient R JITENDRASHAWNEE BROWNE [facility] [id number] [facility] 2020-10-21 13:43:37 2020-10-21 14:28:37 Restaurant Associate Visit Ultrasound, Mary Ellen Saravia [facility] BILINGUAL CASE MANAGER [facility] 1.2.840.114 350.1.13.10 4.2.7.2.686 [id number] [facility] 2020-10-21 13:45:00 2020-10-21 13:45:00 Outpatient P [facility] [id number] [facility] 2020-10-09 00:00:00 2020-10-09 00:00:00 Patient Secure Msg Doctor Unassigned, [place] [facility] 1.2.840.114 350.1.13.10 4.2.7.2.686 [id number] 134 [id number] [facility] 2020-10-08 15:39:08 2020-10-08 16:17:14 Routine Visit Carlos Atkins [facility] 1.2.840.114 350.1.13.10 4.2.7.2.686 [id number] [facility] 2020-10-08 15:30:00 2020-10-08 15:30:00 Outpatient R CARLOS ATKINS [facility] [id number] [facility] 2020-09-13 08:44:03 2020-09-13 08:59:03 Restaurant Associate Visit 2, Adc Lab Carlos Atkins [facility] nal Building 1.2.840.114 350.1.13.10 4.2.7.2.686 [id number] [facility] 2020-09-13 08:30:00 2020-09-13 08:30:00 Outpatient R [facility] [id number] [facility] 2020-09-12 00:00:00 2020-09-12 00:00:00 Telephone [facility] 1.2.840.114 350.1.13.10 4.2.7.2.686 [id number] [facility] 2020-09-11 00:00:00 2020-09-11 00:00:00 Case Management Brendan [facility] [place] [facility] 1.2.840.114 350.1.13.10 4.2.7.2.686 [id number] [facility] 2020-09-10 14:24:19 2020-09-10 14:39:19 Restaurant Associate Visit 2, Adc Lab Shawnee Cortez [facility] 1.2.840.114 350.1.13.10 4.2.7.2.686 [id number] [facility] 2020-09-10 14:30:00 2020-09-10 14:30:00 Outpatient R [facility] [id number] [facility] 2020-09-10 13:41:38 2020-09-10 14:20:52 Routine Visit Shawnee Cortez [facility] 1.2.840.114 350.1.13.10 4.2.7.2.686 [id number] 134 [id number] [facility] 2020-08-30 00:00:00 2020-08-30 00:00:00 Telephone Atkins, Carlos [facility] 1.2.840.114 350.1.13.10 4.2.7.2.686 [id number] [facility] 2020-08-27 08:09:38 2020-08-27 08:39:38 Restaurant Associate Visit Ultrasound, Delio Douglass [facility] BILINGUAL CASE MANAGER [facility] 1.2840.114 350.1.13.10 4.2.7.2.686 [id number] [facility] 2020-08-27 08:00:00 2020-08-27 08:00:00 Outpatient P [facility] [id number] [facility] 2020-08-12 10:57:32 2020-08-12 11:55:43 Routine Visit Carlos Atkins [facility] 1.2.840.114 350.1.13.10 4.2.7.2.686 [id number] [facility] 2020-08-12 11:00:00 2020-08-12 11:00:00 Outpatient R ATKINS CARLOS [facility] [id number] [facility] 2020-07-30 13:37:12 2020-07-30 14:37:12 Restaurant Associate Visit Ultrasound, Erica Villavicencio [facility] BILINGUAL CASE MANAGER [facility] & CHILD [facility] 1.2.840.114 350.1.13.10 4.2.7.2.686 [id number] [facility] 2020-07-30 13:45:00 2020-07-30 13:45:00 Outpatient P [facility] [id number] [facility] 2020-07-15 09:53:14 2020-07-15 10:08:14 Restaurant Associate Visit 2, Adc Lab Carlos Atkins [facility] 1.2.840.114 350.1.13.10 4.2.7.2.686 [id number] [facility] 2020-07-15 08:43:48 2020-07-15 08:58:48 Routine Visit Carlos Atkins [facility]al Building 1.2.840.114 350.1.13.10 4.2.7.2.686 [id number] 134 [id number] [facility] 2020-07-15 08:45:00 2020-07-15 08:45:00 Outpatient R CARLOS ATKINS [facility] [id number] [facility] 2020-07-08 00:00:00 2020-07-08 00:00:[address] [facility] 1.2.840.114 350.1.13.10 4.2.7.2.686 [id number] [facility] 2020-06-26 00:00:00 2020-06-26 00:00:00 Telephone [facility] 1.2.840.114 350.1.13.10 4.2.7.2.686 [id number] [facility] 2020-06-17 08:25:38 2020-06-17 10:05:24 Office Visit [facility] 1.2.840.114 350.1.13.10 4.2.7.2.686 [id number] [facility] 2020-06-17 08:30:00 2020-06-17 08:30:00 Outpatient R CARLOS ATKINS [facility] [id number] [facility] 2020-06-17 00:00:00 2020-06-17 00:00:00 Orders Only Doctor Unassigned, [place] [facility] 1.2.840.114 350.1.13.10 4.2.7.2.686 [id number] [facility] 2020-06-10 10:30:00 2020-06-10 10:30:00 Outpatient R MARIPOSA WEINSTEIN [facility] [id number] [facility] 2020-06-10 10:00:00 2020-06-10 10:00:00 Outpatient R [facility] [id number] [facility] 2020-05-13 14:38:10 2020-05-13 16:11:12 [facility] 1.840.114 350.1.13.10 4.2.7.2.686 [id number] [facility] 2020-05-13 10:26:38 2020-05-13 11:39:02 Routine Visit Mariposa Weinstein [facility] BILINGUAL CASE MANAGER [facility]NAL [facility] CHILD [facility] 1.84.114 350.1.13.10 4.2.7.2.686 [id number] [facility] 2020-05-13 11:00:00 2020-05-13 11:00:00 Outpatient R MARIPOSA WEINSTEIN [facility] [id number] [facility] 2020-05-13 00:00:00 2020-05-13 00:00:00 Orders Only Doctor Unassigned, [place] [facility] ..114 350.1.13.10 4.2.7.2.686 [id number] [facility] 2020-05-02 00:00:00 2020-05-02 00:00:00 Telephone Mariposa Weinstein [facility] BILINGUAL CASE MANAGER [facility]ILD [facility] [id number] [facility] 2020-04-17 00:00:00 2020-04-17 00:00:00 Patient Secure Msg Doctor Unassigned, [place] [facility] BILINGUAL CASE MANAGER [facility] [id number] [facility] 2020-04-15 08:30:00 2020-04-15 08:30:00 Outpatient MARIPOSA TAM [facility] [id number] [facility] 2020-04-15 00:00:00 2020-04-15 00:00:00 Orders Only Doctor Unassigned, [place] [facility] [id number] [facility]
--- NOTE | 2023-08-01 22:22 | ER ---
Nurse's Notes [facility] Name: Pavithra Chester Age: 28 yrs Sex: Female : 1995 Arrival Date: 08/01/2023 Time: 21:41 Bed 14 Private MD: Diagnosis: Cutaneous abscess of abdominal wall Presentation: 07/31 22:02 Chief complaint: Patient states: "I think I have an infected abscess" pt reports it's as6 popped on its own but has not improved. Coronavirus screen: At this time, the client does not indicate any symptoms associated with coronavirus-19. Ebola Screen: No symptoms or risks identified at this time. Initial Sepsis Screen: Does the patient meet any 2 criteria? No. Patient's initial sepsis screen is negative. Does the patient have a suspected source of infection? No. Patient's initial sepsis screen is negative. Risk Assessment: Do you want to hurt yourself or someone else? Patient reports no desire to harm self or others. Onset of symptoms was July 27, 2023. 22:02 Method Of Arrival: Ambulatory as6 22:02 Acuity: LARRY 4 as6 Historical: - Allergies: 22:06 Amoxicillin; as6 22:06 Zithromax; as6 22:06 Augmentin; as6 - PMHx: 22:06 None; as6 - PSHx: 22:06 None; as6 - Immunization history:: Adult Immunizations up to date. - Infectious Disease History:: Denies. - Social history:: Smoking status: Patient denies any tobacco usage or history of. Screenin:00 [facility] ED Fall Risk Assessment (Adult) History of falling in the last 3 months, kb3 including since admission No falls in past 3 months (0 pts) Confusion or Disorientation No (0 pts) Intoxicated or Sedated No (0 pts) Impaired Gait No (0 pts) Mobility Assist Device Used No (0 pt) Altered Elimination No (0 pt) Score/Fall Risk Level 0 - 2 = Low Risk Oriented to surroundings. Abuse screen: Denies threats or abuse. Nutritional screening: No deficits noted. Tuberculosis screening: No symptoms or risk factors identified. Assessment: 22:00 General: Appears in no apparent distress. Behavior is calm, cooperative. Pain: kb3 Complains of pain in right femoral area. Derm: Abscess located on right femoral area is nickel sized. 22:10 General: Appears in no apparent distress. comfortable, Behavior is calm, cooperative. lg3 Pain: Complains of pain in pelvis Pain does not radiate. Neuro: No deficits noted. Rivero Agitation-Sedation Scale (RASS): 0 - Alert and Calm Level of Consciousness is awake, alert, obeys commands, Oriented to person, place, time, situation. Cardiovascular: No deficits noted. Denies chest pain, shortness of breath, Capillary refill < 3 seconds Clubbing of nail beds is absent JVD is absent Patient's skin is warm and dry. Respiratory: No deficits noted. Airway is patent Respiratory effort is even, unlabored, Respiratory pattern is regular, symmetrical. GI: No deficits noted. No signs and/or symptoms were reported involving the gastrointestinal system. Abdomen is round non-distended, obese. : No deficits noted. No signs and/or symptoms were reported regarding the genitourinary system. EENT: No deficits noted. No signs and/or symptoms were reported regarding the EENT system. Derm: Abscess located on right femoral area Reports pain. Musculoskeletal: No deficits noted. No signs and/or symptoms reported regarding the musculoskeletal system. Circulation, motion, and sensation intact. Range of motion: intact in all extremities. Vital Signs: 22:02 BP 155 / 111; Pulse 73; Resp 18 S; Temp 98(O); Pulse Ox 99% on R/A; Weight 104.33 kg as6 (R); Height 5 ft. 5 in. (R); Pain 2/10; 22:50 BP 140 / 88; Pulse 75; Resp 18; Pulse Ox 100% ; Pain 3/10; kb3 22:02 Body Mass Index 38.27 (104.33 kg, 165.1 cm) as6 22:02 Pain Scale: Adult as6 22:50 Pain Scale: Adult kb3 ED Course: 21:47 Patient arrived in ED. gm2 21:54 [facility] Under[facility]C [facility] kb 21:54 Juan Ramon Lee MD is Attending Physician. kb 22:02 Arm band placed on. as6 22:06 Triage completed. as6 22:10 Door closed. Noise minimized. Warm blanket given. Pillow given. Family accompanied lg3 patient. 22:30 Patient has correct armband on for positive identification. Provided Education on: kb3 Antibiotics, wound care, follow up. 22:30 No provider procedures requiring assistance completed. Patient did not have IV access kb3 during this emergency room visit. 22:48 Adali Dodson, RN is Primary Nurse. lg3 Administered Medications: 22:46 Drug: Trimethoprim-Sulfamethoxazole PO (160 mg-800 mg (DS) 1 tablet PO once Route: PO; kb3 22:46 Follow up: Response: No adverse reaction kb3 Medication: 22:00 VIS not applicable for this client. kb3 Outcome: 22:22 Discharge ordered by MD. kb 22:30 Discharged to home ambulatory, with family, kb3 22:30 Condition: stable 22:30 Discharge instructions given to patient, family, Instructed on discharge instructions, follow up and referral plans. medication usage, wound care, Demonstrated understanding of instructions, follow-up care, medications, wound care, Prescriptions given X 1, 22:51 Patient left the ED. kb3 Signatures: Aneta Underwood, FIRE ALARM TECHNICIAN-C FIRE ALARM TECHNICIAN-Ckb Adali Dodson, RN RN lg3 Dontae Crane RN RN as6 Charo Lima RN RN kb3 Lala Chen gm2 Corrections: (The following items were deleted from the chart) 22:09 22:02 Chief complaint: Patient states: "I think I have an infected abscess" pt reports as6 it's pooped on its own but has not improved as6
--- NOTE | 2023-08-01 22:22 | EDPHYS ---
Physician Documentation [facility] Name: Pavithra Chester Age: 28 yrs Sex: Female : 1995 Arrival Date: 08/01/2023 Time: 21:41 Bed 14 Private MD: ED Physician Juan Ramon Lee HPI: 08/01 00:44 This 28 yrs old Female presents to ER via Ambulatory with complaints of Abscess. kb 00:44 [id number] female who presents for an abscess to the suprapubic area that started kb 7 days ago. States it popped on its own 5 days ago and has been draining ever since. States that drainage has not gotten better. Denies fever.. Historical: - Allergies: 07/31 22:06 Amoxicillin; as6 22:06 Zithromax; as6 22:06 Augmentin; as6 - PMHx: 22:06 None; as6 - PSHx: 22:06 None; as6 - Immunization history:: Adult Immunizations up to date. - Infectious Disease History:: Denies. - Social history:: Smoking status: Patient denies any tobacco usage or history of. ROS: 08/01 00:42 Constitutional: As per HPI kb Exam: 00:42 Constitutional: This is a well developed, well nourished patient who is awake, alert, kb and in no acute distress. Head/Face: Normocephalic, atraumatic. ENT: Moist Mucous membranes Cardiovascular: Regular rate Respiratory: Respirations even and unlabored. No increased work of breathing. Talking in full sentences Abdomen/GI: Soft, non-tender. No distention MS/ Extremity: Pulses equal, no cyanosis. Neurovascular intact. Full, normal range of motion. Neuro: Awake and alert, GCS 15, oriented to person, place, time, and situation. Moves all extremities. Normal gait. 00:42 Skin: abscess, that is small, of the suprapubic area, with drainage, that is purulent, Vital Signs: 07/31 22:02 BP 155 / 111; Pulse 73; Resp 18 S; Temp 98(O); Pulse Ox 99% on R/A; Weight 104.33 kg as6 (R); Height 5 ft. 5 in. (R); Pain 2/10; 22:50 BP 140 / 88; Pulse 75; Resp 18; Pulse Ox 100% ; Pain 3/10; kb3 22:02 Body Mass Index 38.27 (104.33 kg, 165.1 cm) as6 22:02 Pain Scale: Adult as6 22:50 Pain Scale: Adult kb3 MDM: 21:55 Patient medically screened. kb 08/01 00:42 Differential diagnosis: abscess, allergic reaction, cellulitis, insect bite. Data kb reviewed: vital signs, nurses notes. Counseling: I had a detailed discussion with the patient and/or guardian regarding the historical points, exam findings, and any diagnostic results supporting the discharge/admit diagnosis, the need for outpatient follow up, a family practitioner, to return to the emergency department if symptoms worsen or persist or if there are any questions or concerns that arise at home. ED course: Abscess is open and draining. Was able to express moderate amount of purulent drainage. Patient educated on warm compresses and to take complete course of antibiotics.. Administered Medications: 07/31 22:46 Drug: Trimethoprim-Sulfamethoxazole PO (160 mg-800 mg (DS) 1 tablet PO once Route: PO; kb3 22:46 Follow up: Response: No adverse reaction kb3 Disposition Summary: 08/01/23 22:22 Discharge Ordered Notes: Location: Home kb Condition: Stable kb Diagnosis - Cutaneous abscess of abdominal wall kb Followup: kb - With: Emergency Department - When: As needed - Reason: Worsening of condition Followup: kb - With: Private Physician - When: 2 - 3 days - Reason: Recheck today's complaints, Continuance of care, Re-evaluation by your physician Discharge Instructions: - Discharge Summary Sheet kb - Skin Abscess, [id number] kb Forms: - Medication Reconciliation Form kb - Antibiotic Education kb - Prescription Opioid Use kb - Patient Portal Instructions kb - Leadership Thank You Letter kb Prescriptions: - Bactrim DS 800-160 mg Oral Tablet - take 1 tablet ORAL route every 12 hours for 10 days; 20 tablet; Refills: 0, kb Product Selection Permitted Addendum: 08/03/2023 05:38 I was immediately available for consultation during this patient's visit. I did not e c2 personally see the patient or discuss the patient with the MARIA GUADALUPE. . Signatures: Aneta Underwood, JEN-C JEN-Dontae Alvarez RN RN as6 Charo Lima RN RN kb3 Juan Ramon Lee, MD ec2
[2023-08-01] MEDS ORDERED: SMZ./TMP. 800/160 MG TABLET ONE (22:38)
[2023-08-01 23:41] VITALS: BP 140/88; TEMP 98; O2SAT 100
== END 2023-08-01 22:51 | disposition home or self-care (01) ==
LOC: ER 21:41
DX: L02.211 Cutaneous abscess of abdominal wall (principal); Z88.1 Allergy status to other antibiotic agents
CPT/HCPCS: 99283

== ENCOUNTER 2024-05-09 11:25 | Emergency (ER) | payer OTHER, SELFPAY ==
--- OUTSIDE RECORDS SUMMARY | 2024-05-09 11:29 | XMS REPORT | Continuity of Care Document ---
Author Name Unknown Address [address] [place] [address] [facility] Address [address] [place] [address] Care Team Providers Care Physical Therapist Name Role Phone MARIPOSA WEINSTEIN Primary Care Physician Unav ailable CARLOS ATKINS Attending Clinician Unavailable GC_GCBZW_Aidan_S Attending Clinician Unavaila Cindy Burns MA Attending Clinician Unavailreanna Atkins MD, Carlos Rubio Attending Clinician [phone] SHAWNEE CORTEZ Attending Clinician Unavailable Shawnee Cortez PA-C Attending Clinician [phone] Nurse, [facility] Attending Clinician Un available Anselmo Cuadra CRNA Attending Clinician [phone] Marek Samuels MD, Leonard Attending Clinician [phone] Aziza Fong MD Attending Clinician + [phone] [facility] Lab Attending Clinician Unavailable Doctor Unassigned, [place] Attending Clinician U navailable Ultrasound, [facility] Mfm Attending Clinician Unavailjess Roque MD, Armando Bean Attending Clinician [phone] Room, [facility] Nst Attending Clinician Unavailable Ultrasound, Ang-m Attending Clinician Unavaila vicente Farfan MD, [place] Attending Clinician + Delio Galeano MD Attending Clinician [phone] Erica Mccarty MD Attending Clinician [phone] MARIPOSA WEINSTEIN Attending Clinician Unavail able Mariposa Gallegos Attending Clinician + CARLOS ATKINS Admitting Clinician Unavailable [email or web address]_Kadiyala_S Admitting Clinician UnavailCarlso Em MD Admitting Clinician [phone] Payers Payer Name Policy Type Policy Number Effective Date Expirati on Date Source [facility] MEDICAID [id number] 2020 00:00:00 MEDICAID PENDING PENDING 2020 00:00:00 Problems Condition Name Condition Details Condition Category Status Onset Date Resolution Date Last Treatment Date Treating Clinician Comments Source Morbid obesity with body mass index of 40.0-49.9 Morbid obesity with body mass index of 40.0-49.9 Disease Active 5- 00:00: 00 [facility] History of asthma History of asthma Disease Active 3 00:00: 00 [facility] 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 Refer to colpo clinic [facility] Allergies, Adverse Reactions, Alerts Allergy Name Allergy Type Status Severity Reaction(s) Onset Date Inactive Date Treating Clinician Comments Source AZITHROM YCIN DRUG INGREDI Active Hives 09-16 00:00: 00 [facility] Azithrom ycin Propensi ty to adverse reaction s Active Hives 09-16 00:00: 00 [facility] PENICILL INS Drug Class Active Hives 2014-03 00:00: 00 [facility] Penicill ins Propensi ty to adverse reaction s Active Hives 2014-03 00:00: 00 [facility] Amoxicil robert-Pot Clavulan ate Propensi ty to adverse reaction s Active Hives 2014-03 00:00: 00 [facility] Penicill ins Propensi ty to adverse reaction s Active Hives 2014-03 00:00: 00 [facility] AMOXICIL ROBERT-POT CLAVULAN ATE DRUG Active Hives 2014-03 00:00: 00 [facility] Social History Social Habit Start Date Stop Date Quantity Comments Source ASSERTION [facility] Exposure to SARS-CoV-2 (event) 2022-06-21 00:00:00 2022-07-01 09:55:00 Not sure [facility] Alcohol Comment 2022-07-01 00:00:00 2022-07-01 00:00:00 once or twice a month [facility] History of Social function 2021-07-01 00:00:00 2021-07-01 00:00:00 [facility] Cigarettes smoked current (pack per day) - Reported 2020-04-15 00:00:00 2020-04-15 00:00:00 [facility] Tobacco use and exposure 2020-04-15 00:00:00 2020-04-15 00:00:00 Former smokeless tobacco user [facility] Alcohol intake 2020-04-15 00:00:00 2020-04-15 00:00:00 Ex-drinker (finding) [facility] History of tobacco use 2020-04-13 00:00:00 Cigarette Smoker [facility] Sex Assigned At 1995 00:00:00 1995 00:00:00 [facility] Smoking Status Start Date Stop Date Source Occasional tobacco smoker 2020-05-13 00:00:00 [facility] Ex-smoker 2020-04-15 00:00:00 2020-04-15 00:00:00 [facility] Medications Ordered Medication Name Filled Medication Name Start Date Stop Date Current Medication? Ordering Clinician Indication Dosage Frequency Signature (SIG) Comments Components Source acetaminoph en (TYLENOL ORAL) 07-01 14:00: 56 Yes Take by mouth. [facility] 25/iron fum/folic/d cunningham (-1 ORAL) 2020-03 0- 08:34: 38 12-06 00:00 :00 No Take by mouth. [facility] vitamin w/FA tablet 2020-03 0 00:00: 00 07-01 00:00 :00 No [id number] 1{tbl} Take 1 tablet by mouth daily. [facility] docusate calcium 240 mg capsule 2020-03 0- 00:00: 00 07-01 00:00 :00 No [id number] 240mg Take 1 capsule by mouth once daily as needed for Constipati on. [facility] ferrous sulfate 325 mg (65 mg iron) tablet 2020-03 0 00:00: 00 07-01 00:00 :00 No [id number] 325mg Take 1 tablet by mouth 2 (two) times daily. [facility] ibuprofen 600 mg tablet 2020-03 00:00: 00 07-01 00:00 :00 No [id number] 600mg Take 1 tablet by mouth every 6 (six) hours as needed (Pain). Take with food or milk. [facility] Immunizations Ordered Immunization Name Filled Immunization Name Date Status Comments Source Varicella (varivax)(chicken pox) 2020-12-06 00:00:00 Completed [facility] Varicella (varivax)(chicken pox) 2020-12-06 00:00:00 Completed [facility] Varicella (varivax)(chicken pox) 2020-12-06 00:00:00 Completed [facility] TDAP 2020-11-19 00:00:00 Completed [facility] TDAP 2020-10-28 00:00:00 Completed [facility] TDAP 2020-10-09 00:00:00 Completed [facility] TDAP 2020-10-08 00:00:00 Completed [facility] TDAP 2020-10-08 00:00:00 Completed [facility] TDAP 2020-10-08 00:00:00 Completed [facility] Vital Signs Vital Name Observation Time Observation Value Comments Roxanna resendez Systolic blood pressure 2022-07-01 18:17:00 130 mm[Hg] [facility] Diastolic blood pressure 2022-07-01 18:17:00 80 mm[Hg] [facility] Heart rate 2022-07-01 18:17:00 85 /min [facility] Body temperature 2022-07-01 18:17:00 36.83 Dee [facility] Body height 2022-07-01 18:17:00 162.6 cm [facility] Body weight 2022-07-01 18:17:00 109.77 kg [facility] BMI 2022-07-01 18:17:00 41.54 kg/m2 [facility] Systolic blood pressure 2021-07-01 18:53:00 119 mm[Hg] [facility] Diastolic blood pressure 2021-07-01 18:53:00 81 mm[Hg] [facility] Heart rate 2021-07-01 18:53:00 84 /min [facility] Body temperature 2021-07-01 18:53:00 36.89 Dee [facility] Body height 2021-07-01 18:53:00 162.6 cm [facility] Body weight 2021-07-01 18:53:00 99.701 kg [facility] BMI 2021-07-01 18:53:00 37.73 kg/m2 [facility] Procedures Procedure Date / Time Performed Performing Clinicia n Source LAB ONLY PAP SMEAR-LIQUID BASED 2021-07-01 19:17:00 Carlos Atkins [facility] PAP SMEAR-LIQUID BASED-CP 2021-07-01 19:17:00 Carlos Atkins [facility] Encounters Start Date/Time End Date/Time Encounter Type Admission Type Attending Clinicians Care Facility Care Department Encounter ID Source 2021-01-07 02:05:25 Outpatient P [facility] FIDEL [id number] [facility] 2021-01-06 20:31:[address] [facility] [id number] [facility] 2023-07-05 15:00:00 2023-07-05 15:00:00 Outpatient R CARLOS ATKINS [facility] [id number] [facility] 2023-01-02 00:00:00 2023-01-02 00:00:00 Outpatient GC_GCBZW_Ka diyala_S [facility] [id number] [facility] 2022-08-27 00:00:00 2022-08-27 00:00:00 Case Management Cindy Lawrence [facility] 1..840.114 350.1.13.10 4.2.7.2.686 [id number] [facility] 2022-07-01 13:30:00 2022-07-01 13:54:34 Outpatient R CARLOS ATKINS [facility] [id number] [facility] 2022-07-01 13:30:00 2022-07-01 13:54:34 Office Visit Carlos Atkins [facility] 1..840.114 350.1.13.10 4.2.7.2.686 [id number] [facility] 2021-07-01 13:45:00 2021-07-01 14:20:55 Outpatient R CARLOS ATKINS [facility] [id number] [facility] 2021-07-01 13:45:00 2021-07-01 14:20:55 Office Visit Carlos Atkins [facility] 1..840.114 350.1.13.10 4.2.7.2.686 [id number] [facility] 2021-07-01 13:45:00 2021-07-01 14:20:55 Outpatient R CARLOS ATKINS [facility] [id number] [facility] 2021-01-14 00:00:00 2021-01-14 00:00:00 Telephone Carlos Atkins [facility] 1..840.114 350.1.13.10 4.2.7.2.686 [id number] [facility] 2021-01-02 16:00:00 2021-01-02 17:05:31 Outpatient R SHAWNEE CORTEZ [facility] [id number] [facility] 2021-01-02 15:59:41 2021-01-02 17:05:31 Routine Visit Shawnee Cortez [facility] 1.2.840.114 350.1.13.10 4.2.7.2.686 [id number] [facility] 2020-12-12 00:00:00 2020-12-12 00:00:00 Telephone [facility] 1.2.840.114 350.1.13.10 4.2.7.2.686 [id number] [facility] 2020-12-10 14:56:17 2020-12-10 15:30:53 Nurse Visit Nurse, [facility] 1.2.840.114 350.1.13.10 4.2.7.2.686 [id number] [facility] 2020-12-10 14:30:00 2020-12-10 14:30:00 Outpatient R CARLOS ATKINS [facility] [id number] [facility] 2020-12-09 10:45:00 2020-12-09 10:45:00 Outpatient R CARLOS ATKINS [facility] [id number] [facility] 2020-12-03 15:41:00 2020-12-06 15:05:00 Hospital Encounter Carlos Atkins [facility] 1.2.840.114 350.1.13.10 4.2.7.2.686 [id number] [facility] 2020-12-05 20:03:17 2020-12-05 20:03:17 Anesthesia Event Anselmo Cuadra [facility] 1.2.840.114 350.1.13.10 4.2.7.2.686 [id number] [facility] 2020-12-04 22:25:00 2020-12-05 12:25:00 Anesthesia Event Alex Jara, Aziza [facility] 1.2.840.114 350.1.13.10 4.2.7.2.686 [id number] [facility] 2020-12-03 14:13:05 2020-12-03 15:25:55 Routine Visit Carlos Atkins [facility] Building 1.2.840.114 350.1.13.10 4.2.7.2.686 [id number] [facility] 2020-12-03 14:15:00 2020-12-03 14:15:00 Outpatient R [facility] [id number] [facility] 2020-11-29 14:25:36 2020-11-29 14:40:36 Heat Transfer Technician Visit 2, [facility] 1.2.840.114 350.1.13.10 4.2.7.2.686 [id number] [facility] 2020-11-29 14:30:00 2020-11-29 14:30:00 Outpatient R [facility] [id number] [facility] 2020-11-25 15:14:06 2020-11-25 16:29:36 Routine Visit Carlos Atkins [facility] Building 1.2.840.114 350.1.13.10 4.2.7.2.686 [id number] [facility] 2020-11-25 15:15:00 2020-11-25 15:15:00 Outpatient R [facility] [id number] [facility] 2020-11-25 00:00:00 2020-11-25 00:00:00 Orders Only Doctor Unassigned, Ballard [facility] 1.84.114 350.1.13.10 4.2.7.2.686 [id number] [facility] 2020-11-22 13:25:01 2020-11-22 13:55:01 Heat Transfer Technician Visit Ultrasound, Adc Armando Cardenas [facility] 1.84.114 350.1.13.10 4.2.7.2.686 [id number] [facility] 2020-11-22 13:30:00 2020-11-22 13:30:00 Outpatient P [facility] [id number] [facility] 2020-11-21 14:45:00 2020-11-21 14:45:00 Outpatient R SHAWNEE CORTEZ [facility] [id number] [facility] 2020-11-21 14:00:00 2020-11-21 14:00:00 Outpatient R [facility] [id number] [facility] 2020-11-19 11:30:00 2020-11-19 11:30:00 Outpatient R DANA SHAWNEE [facility] [id number] [facility] 2020-11-19 00:00:00 2020-11-19 00:00:00 Patient Secure Msg Doctor Unassigned, [place]ard [facility] 1.840.114 350.1.13.10 4.2.7.2.686 [id number] [facility] 2020-11-18 10:05:39 2020-11-18 11:15:17 Routine Visit Room, Adc Carlos Padilla [facility] 1.2.840.114 350.1.13.10 4.2.7.2.686 [id number] [facility] 2020-11-18 10:00:00 2020-11-18 10:00:00 Outpatient R [facility] [id number] [facility] 2020-11-15 00:00:00 2020-11-15 00:00:00 Telephone Carlos Atkins [facility] [place] [facility] 1.2.840.114 350.1.13.10 4.2.7.2.686 [id number] [facility] 2020-11-15 00:00:00 2020-11-15 00:00:00 Telephone Carlos Atkins [facility] Building 1.2.840.114 350.1.13.10 4.2.7.2.686 [id number] [facility] 2020-11-13 09:07:01 2020-11-13 10:11:21 Routine Visit Room, [facility] Carlos Atkins [facility] Building 1.2.840.114 350.1.13.10 4.2.7.2.686 [id number] [facility] 2020-11-13 09:07:01 2020-11-13 10:11:21 Routine Visit Room, [facility] Carlos Atkins [facility] Building 1.2.840.114 350.1.13.10 4.2.7.2.686 [id number] [facility] 2020-11-13 09:00:00 2020-11-13 09:00:00 Outpatient R [facility] [id number] [facility] 2020-11-12 00:00:00 2020-11-12 00:00:00 Telephone Carlos Atkins [facility] nal Building 1.2.840.114 350.1.13.10 4.2.7.2.686 [id number] [facility] 2020-11-12 00:00:00 2020-11-12 00:00:00 Telephone Carlos Atkins [facility] 1.2.840.114 350.1.13.10 4.2.7.2.686 [id number] [facility] 2020-11-10 03:32:00 2020-11-10 04:35:00 Emergency Carlos Atkins [facility] 1.2.840.114 350.1.13.10 4.2.7.2.686 [id number] [facility] 2020-11-10 03:32:00 2020-11-10 04:35:00 Emergency Carlos Atkins [facility] 1.2.840.114 350.1.13.10 4.2.7.2.686 [id number] [facility] 2020-11-08 00:00:00 2020-11-08 00:00:00 Orders Only Doctor Unassigned, Ballard [facility] 1.2.840.114 350.1.13.10 4.2.7.2.686 [id number] [facility] 2020-11-08 00:00:00 2020-11-08 00:00:00 Orders Only Doctor Unassigned, Ballard [facility] 1.2.840.114 350.1.13.10 4.2.7.2.686 [id number] [facility] 2020-11-06 13:03:27 2020-11-06 14:13:35 Routine Visit Carlos Atkins [facility] 1.2.840.114 350.1.13.10 4.2.7.2.686 [id number] [facility] 2020-11-06 13:03:27 2020-11-06 14:13:35 Routine Visit Carlos Atkins [facility] 1.2.840.114 350.1.13.10 4.2.7.2.686 [id number] [facility] 2020-11-06 13:00:00 2020-11-06 13:00:00 Outpatient R [facility] [id number] [facility] 2020-10-31 00:00:00 2020-10-31 00:00:00 [facility] 1.2.840.114 350.1.13.10 4.2.7.2.686 [id number] [facility] 2020-10-31 00:00:00 2020-10-31 00:00:00 [facility]phone [facility] [place] 1.2.840.114 350.1.13.10 4.2.7.2.686 [id number] [facility] 2020-10-28 14:10:50 2020-10-28 14:26:46 Nurse Visit Nurse, [facility] Carlos Atkins [facility] 1.2.840.114 350.1.13.10 4.2.7.2.686 [id number] [facility] 2020-10-28 14:00:00 2020-10-28 14:00:00 Outpatient R [facility] [id number] [facility] 2020-10-28 00:00:00 2020-10-28 00:00:00 Patient Secure Msg Doctor Unassigned, Ballard [facility] 1.2.840.114 350.1.13.10 4.2.7.2.686 [id number] [facility] 2020-10-23 16:06:20 2020-10-23 16:58:45 Routine Visit Shawnee Cortez [facility] Building 1.2.840.114 350.1.13.10 4.2.7.2.686 [id number] [facility] 2020-10-23 16:15:00 2020-10-23 16:15:00 Outpatient R SHAWNEE CORTEZ [facility] [id number] [facility] 2020-10-21 13:43:37 2020-10-21 14:28:37 Heat Transfer Technician Visit Ultrasound, Mary Ellen Saravia [facility] SENIOR TABLEAU DEVELOPER [facility] 1..840.114 350.1.13.10 4.2.7.2.686 [id number] [facility] 2020-10-21 13:45:00 2020-10-21 13:45:00 Outpatient P [facility] [id number] [facility] 2020-10-09 00:00:00 2020-10-09 00:00:00 Patient Secure Msg Doctor Unassigned, Ballard [facility] 1.2.840.114 350.1.13.10 4.2.7.2.686 [id number] [facility] 2020-10-08 15:39:08 2020-10-08 16:17:14 Routine Visit Carlos Atkins [facility] 1.2.840.114 350.1.13.10 4.2.7.2.686 [id number] [facility] 2020-10-08 15:30:00 2020-10-08 15:30:00 Outpatient R CARLOS ATKINS [facility] [id number] [facility] 2020-09-13 08:44:03 2020-09-13 08:59:03 Heat Transfer Technician Visit 2, Adc Lab Carlos Atkins [facility] 1.2.840.114 350.1.13.10 4.2.7.2.686 [id number] [facility] 2020-09-13 08:30:00 2020-09-13 08:30:00 Outpatient R [facility] [id number] [facility] 2020-09-12 00:00:00 2020-09-12 00:00:00 Telephone JoshShawnee monreal [facility] 1.2.840.114 350.1.13.10 4.2.7.2.686 [id number] [facility] 2020-09-11 00:00:00 2020-09-11 00:00:00 Case Management Saudpagejocelin Shawnee [facility] 1.2.840.114 350.1.13.10 4.2.7.2.686 [id number] [facility] 2020-09-10 14:24:19 2020-09-10 14:39:19 Heat Transfer Technician Visit 2, Adc Lab Shawnee Cortez [facility] 1.2.840.114 350.1.13.10 4.2.7.2.686 [id number] [facility] 2020-09-10 14:30:00 2020-09-10 14:30:00 Outpatient R [facility] [id number] [facility] 2020-09-10 13:41:38 2020-09-10 14:20:52 Routine Visit Shawnee Cortez [facility] 1.2.840.114 350.1.13.10 4.2.7.2.686 [id number] [facility] 2020-08-30 00:00:00 2020-08-30 00:00:00 Telephone Carlos Atkins [facility] 1.2.84.114 350.1.13.10 4.2.7.2.686 [id number] [facility] 2020-08-27 08:09:38 2020-08-27 08:39:38 Heat Transfer Technician Visit Ultrasound, Delio Douglass [facility] SENIOR TABLEAU DEVELOPER [facility] MATERNAL & CHILD [facility] 1.84.114 350.1.13.10 4.2.7.2.686 [id number] [facility] 2020-08-27 08:00:00 2020-08-27 08:00:00 Outpatient P [facility] [id number] [facility] 2020-08-12 10:57:32 2020-08-12 11:55:43 Routine Visit Carlos Atkins [facility] 1.84.114 350.1.13.10 4.2.7.2.686 [id number] [facility] 2020-08-12 11:00:00 2020-08-12 11:00:00 Outpatient R MILLY CARLOS [facility] [id number] [facility] 2020-07-30 13:37:12 2020-07-30 14:37:12 Heat Transfer Technician Visit Ultrasound, MonicaErica Venegas [facility] SENIOR TABLEAU DEVELOPER [facility] & CHILD [facility] 1..114 350.1.13.10 4.2.7.2.686 [id number] [facility] 2020-07-30 13:45:00 2020-07-30 13:45:00 Outpatient P [facility] [id number] [facility] 2020-07-15 09:53:14 2020-07-15 10:08:14 Heat Transfer Technician Visit 2, Adc Lab MillyCarlos [facility] 1.840.114 350.1.13.10 4.2.7.2.686 [id number] [facility] 2020-07-15 08:43:48 2020-07-15 08:58:48 [facility] 1.2.840.114 350.1.13.10 4.2.7.2.686 [id number] [facility] 2020-07-15 08:45:00 2020-07-15 08:45:00 Outpatient R CARLOS ATKINS [facility] [id number] [facility] 2020-07-08 00:00:00 2020-07-08 00:00:00 Telephone Carlos Atkins [facility] Building 1.2.840.114 350.1.13.10 4.2.7.2.686 [id number] [facility] 2020-06-26 00:00:00 2020-06-26 00:00:00 Telephone Carlos Atkins [facility] Building 1.2.840.114 350.1.13.10 4.2.7.2.686 [id number] [facility] 2020-06-17 08:25:38 2020-06-17 10:05:24 Office Visit Carlos Atkins [facility] Building 1.2.840.114 350.1.13.10 [id number] [facility] 2020-06-17 08:30:00 2020-06-17 08:30:00 Outpatient R CARLOS ATKINS [facility] [id number] [facility] 2020-06-17 00:00:00 2020-06-17 00:00:00 Orders Only Doctor Unassigned, [place]ard [facility] [id number] [id number] [id number] [facility] 2020-06-10 10:30:00 2020-06-10 10:30:00 Outpatient R MARIPOSA WEINSTEIN [facility] [id number] [facility] 2020-06-10 10:00:00 2020-06-10 10:00:00 Outpatient R [facility] [id number] [facility] 2020-05-13 14:38:10 2020-05-13 16:11:12 [facility] [id number] [id number] [id number] [id number] [facility] 2020-05-13 10:26:38 2020-05-13 11:39:02 Routine Visit Mariposa Weinstein [facility] SENIOR TABLEAU DEVELOPER [facility] MATERNAL & CHILD [facility] [id number] [id number] [id number] [id number] [facility] 2020-05-13 11:00:00 2020-05-13 11:00:00 Outpatient R MARIPOSA WEINSTEIN [facility] [id number] [facility] 2020-05-13 00:00:00 2020-05-13 00:00:00 Orders Only Doctor Unassigned, [place]ard [facility] [id number] 350.1.13.10 4.2.7.2.686 [id number] [facility] 2020-05-02 00:00:00 2020-05-02 00:00:00 Telephone Mariposa Weinstein [facility] SENIOR TABLEAU DEVELOPER [facility] & CHILD [facility] [id number] [id number] [id number] [id number] [facility] 2020-04-17 00:00:00 2020-04-17 00:00:00 Patient Secure Msg Doctor Unassigned, [place]ard [facility] SENIOR TABLEAU DEVELOPER [facility] 1..840.114 350.1.13.10 [id number] [id number] [facility] 2020-04-15 08:30:00 2020-04-15 08:30:00 Outpatient R MARIPOSA WEINSTEIN [facility] [id number] [facility] 2020-04-15 00:00:00 2020-04-15 00:00:00 Orders Only Doctor Unassigned, [place]ard [facility] 1..840.114 350.1.13.10 [id number] [id number] [facility]
[2024-05-09 13:16] LABS: Absolute Basophils 0.1 K/uL (0-0.5); Absolute Eosinophils 0.1 K/uL (0-0.5); Absolute Lymphocytes (CBC) 2.5 K/uL (0.7-4.9); Absolute Monocytes 0.6 K/uL (0.1-1.3); Absolute Neutrophil 7.4 K/uL (1.8-8.0); Basophils % 0.6 % (0-1.3); Eosinophils % 1.1 % (0-4.4); Hematocrit 39.2 % (36.0-45.0); Hemoglobin 13.8 g/dL (12.0-15.0); Lymphocytes % 23.6 % (15.3-44.8); MCH 31.6 pg (27.0-35.0); MCHC 35.2 g/dL (32.0-36.0); MCV 89.8 fL (80-100); MPV 7.9 fL (7.6-11.3); Monocytes % 5.4 % (3.3-12.3); Neutrophils % 69.3 % (41.7-73.7); Platelets 268 thou/uL (152-406); RBC Red Blood Cell Count 4.36 M/uL (3.86-4.86); Red Cell Distribution Width 12.4 % (12.1-15.2)
--- NOTE | 2024-05-09 13:20 | RAD REPORT ---
EXAM: Soft Tissue Neck W/Contr INDICATION: Neck pain. Dysphasia TECHNIQUE: Helical CT examination of the neck [id number] cc Isovue-300 IV contrast. Sagittal and coronal reformations were generated. This exam was performed according to our departmental dose-optimization program, which includes automated exposure control, adjustment of the mA and/or kV according to patient size and/or use of iterative reconstruction technique. COMPARISON: None. FINDINGS: The pharynx, larynx and subglottic trachea are unremarkable Parotid, submandibular and left thyroid gland appear normal. 6 mm nodule right lobe thyroid gland likely benign 1.4 x 1 cm soft tissue structure upper fissural to the right masseter muscle. No fluid within the visualized sinuses/mastoids. IMPRESSION: 1.4 x 1 cm soft tissue structure superficial to the right masseter likely benign. It is recommended t hat patient have a follow-up ultrasound in approximately 6 weeks to assess stability/resolution
[2024-05-09] MEDS ORDERED: LIDOCAINE VISCOUS 2% 10ML ORAL SOLN ONE (13:37)
[2024-05-09] MEDS ORDERED: MAGNES/ALUMIN/SIMET 30ML UCUP ONE (13:37)
--- NOTE | 2024-05-09 13:57 | ER ---
Nurse's Notes [facility] Name: Pavithra Chester Age: 28 yrs Sex: Female : 1995 Arrival Date: 05/09/2024 Time: 11:25 Bed DX4 Private MD: Diagnosis: Dysphagia, unspecified Presentation: 05/09 12:36 Chief complaint: Patient states: Irriation/pain to throat since yesterday after eating ld1 dinner. Pt reports feeling like something is stuck in back of throat. Coronavirus screen: At this time, the client does not indicate any symptoms associated with coronavirus-19. Ebola Screen: No symptoms or risks identified at this time. Initial Sepsis Screen: Does the patient meet any 2 criteria? No. Patient's initial sepsis screen is negative. Does the patient have a suspected source of infection? No. Patient's initial sepsis screen is negative. Risk Assessment: Do you want to hurt yourself or someone else? Patient reports no desire to harm self or others. Onset of symptoms was May 09, 2024. 12:36 Method Of Arrival: Ambulatory ld1 12:36 Acuity: LARRY 3 ld1 Triage Assessment: 12:36 General: Appears in no apparent distress. comfortable, Behavior is calm, cooperative, ld1 appropriate for age. Pain: Complains of pain in uvula, left aspect of posterior pharynx and right aspect of posterior pharynx Pain does not radiate. Pain currently is 6 out of 10 on a pain scale. Quality of pain is described as throbbing, Pain began suddenly. EENT: Throat is pink. Neuro: Level of Consciousness is awake, alert, obeys commands, Oriented to person, place, time, situation. Cardiovascular: Capillary refill < 3 seconds Patient's skin is warm and dry. Respiratory: Airway is patent Respiratory effort is even, unlabored. GI: Abdomen is round non-distended. : No signs and/or symptoms were reported regarding the genitourinary system. Historical: - Allergies: 12:35 Amoxicillin; ld1 12:35 Augmentin; ld1 12:35 Zithromax; ld1 - Home Meds: 12:35 None [Active]; ld1 - PMHx: 12:35 None; ld1 - PSHx: 12:35 None; ld1 - Immunization history:: Adult Immunizations up to date. - Infectious Disease History:: Denies. - Social history:: Smoking status: Patient denies any tobacco usage or history of. - Family history:: not pertinent. - Hospitalizations: : No recent hospitalization is reported. Screenin:04 Abuse screen: Denies threats or abuse. Denies injuries from another. ss Assessment: 14:04 General: Appears in no apparent distress. comfortable, Behavior is calm, cooperative. ss Neuro: Level of Consciousness is awake, alert, obeys commands, Oriented to person, place, time, situation. Respiratory: Airway is patent Respiratory effort is even, unlabored, Respiratory pattern is regular, symmetrical. Derm: Skin is intact, is healthy with good turgor, Skin is dry, Skin is pink, warm \T\ dry. normal. Vital Signs: 12:36 BP 154 / 99; Pulse 93; Resp 18; Temp 98.2(TE); Pulse Ox 99% on R/A; Weight 113.4 kg; ld1 Height 5 ft. 4 in. ; Pain 6/10; 12:36 Body Mass Index 42.91 (113.40 kg, 162.56 cm) ld1 12:36 Pain Scale: Adult ld1 ED Course: 11:28 Patient arrived in ED. mr 11:28 Darrel Stevens MD is Attending Physician. rn 12:36 Arm band placed on right wrist. ld1 12:37 Triage completed. ld1 13:11 Soft Tissue Neck W/Contr CT In Process Unspecified. EDMS 13:52 No provider procedures requiring assistance completed. IV discontinued, intact, ss bleeding controlled, No redness/swelling at site. Pressure dressing applied, IV previously inserted by quality assurance technician. 22 g L FA. 13:56 Han Isabel MD is Referral Physician. rn 14:03 Natalia Flynn, KEILY is Primary Nurse. ss Administered Medications: 13:52 Drug: GI Cocktail without - (Maalox PO 30 ml, Lidocaine Mucous Membrane 2 % 15 ss ml) PO once Route: PO; 13:52 Follow up: Response: Medication Administered at Departure ss Medication: 14:04 VIS not applicable for this client. ss Outcome: 13:57 Discharge ordered by . rn 14:03 Discharged to home ambulatory, 14:03 Condition: good 14:03 Discharge instructions given to patient, family, Instructed on discharge instructions, follow up and referral plans. Demonstrated understanding of instructions, follow-up care, medications, 14:04 Patient left the ED. ss Signatures: Dispatcher [employer] Ana Paz Reg Reg mr Nieto, Roman, MD MD rn Blanchard, Shelby, RN RN ss Lisa Howard RN RN ld1
--- NOTE | 2024-05-09 13:57 | EDPHYS ---
Physician Documentation [facility] Name: Pavithra Chester Age: 28 yrs Sex: Female : 1995 Arrival Date: 05/09/2024 Time: 11:25 Bed DX4 Private MD: ED Physician Darrel Stevens HPI: 05/09 13:04 This 28 yrs old Female presents to ER via Ambulatory with complaints of Sore Throat. rn 13:04 The patient presents with sore throat, dysphagia. The patient describes throat pain as rn burning, raw, scratchy. Severity of symptoms: At their worst the symptoms were mild, in the emergency department the symptoms are unchanged. Associated signs and symptoms: Pertinent negatives fever, flu-like symptoms, rhinorrhea, shortness of breath. The patient has not experienced similar symptoms in the past. Patient reports ate a sandwich yesterday, had deli meat and apples, was able to swallow but feels like something irritated her got stuck in her throat. Has been able to eat and drink since then and food and water stays down without coming back up but still feels pain in throat when swallowing. Denies any trouble breathing. Has never happened to her before.. Historical: - Allergies: 12:35 Amoxicillin; ld1 12:35 Augmentin; ld1 12:35 Zithromax; ld1 - Home Meds: 12:35 None [Active]; ld1 - PMHx: 12:35 None; ld1 - PSHx: 12:35 None; ld1 - Immunization history:: Adult Immunizations up to date. - Infectious Disease History:: Denies. - Social history:: Smoking status: Patient denies any tobacco usage or history of. - Family history:: not pertinent. - Hospitalizations: : No recent hospitalization is reported. ROS: 13:04 Constitutional: Negative for fever, chills, and weight loss, ENT: Positive for rn dysphagia Neck: Negative for injury, and swelling, Cardiovascular: Negative for chest pain, palpitations, and edema, Respiratory: Negative for shortness of breath, cough, wheezing, and pleuritic chest pain, Abdomen/GI: Negative for abdominal pain, nausea, vomiting, diarrhea, and constipation, MS/Extremity: Negative for injury and deformity, Neuro: Negative for headache, weakness, numbness, tingling, and seizure, Exam: 13:04 Constitutional: This is a well developed, well nourished patient who is awake, alert, rn and in no acute distress. ENT: No pharyngeal erythema or swelling. No stridor. Neck: Nontender anterior neck without masses. No lymphadenopathy. Cardiovascular: Regular rate and rhythm. No pulse deficits. Respiratory: No increased work of breathing, no retractions or nasal flaring. Vital Signs: 12:36 BP 154 / 99; Pulse 93; Resp 18; Temp 98.2(TE); Pulse Ox 99% on R/A; Weight 113.4 kg; ld1 Height 5 ft. 4 in. ; Pain 6/10; 12:36 Body Mass Index 42.91 (113.40 kg, 162.56 cm) ld1 12:36 Pain Scale: Adult ld1 MDM: 11:28 Medical Screening Exam initiated rn 13:54 Differential diagnosis: gastroesophageal reflux disease, viral syndrome Mass, rn dysphagia, odynophagia, foreign body. Data reviewed: vital signs, nurses notes, lab test result(s), radiologic studies, CT scan, and as a result, I will discharge patient. Counseling: I had a detailed discussion with the patient and/or guardian regarding the historical points, exam findings, and any diagnostic results supporting the discharge/admit diagnosis, lab results, radiology results, the need for outpatient follow up, to return to the emergency department if symptoms worsen or persist or if there are any questions or concerns that arise at home. Special discussion: I discussed with the patient/guardian in detail that at this point there is no indication for admission to the hospital. It is understood, however, that if the symptoms persist or worsen the patient needs to return immediately for re-evaluation. Based on the history and exam findings, there is no indication for further emergent testing or inpatient evaluation. I discussed with the patient/guardian the need to see the lugger for further evaluation of the symptoms. ED course: No acute findings and CT soft tissue neck. Incidental findings including nodule and masseter mass/swelling conveyed to patient. Patient still has dysphagia but is able to tolerate liquids and solids. Will discharge with instructions to follow-up with GI for possible scope if symptoms do not improve.. 05/09 11:41 Order name: CBC with Diff; Complete Time: 13:22 rn 05/09 11:41 Order name: Basic Metabolic Panel; Complete Time: 13:46 rn 05/09 11:41 Order name: Soft Tissue Neck W/Contr CT; Complete Time: 13:22 rn 05/09 11:41 Order name: IV Start; Complete Time: 13:57 rn Administered Medications: 13:52 Drug: GI Cocktail without - (Maalox PO 30 ml, Lidocaine Mucous Membrane 2 % 15 ss ml) PO once Route: PO; 13:52 Follow up: Response: Medication Administered at Departure ss Disposition Summary: 05/09/24 13:57 Discharge Ordered Notes: Location: Home rn Problem: new rn Symptoms: have improved rn Condition: Stable rn Diagnosis - Dysphagia, unspecified rn Followup: rn - With: Han Isabel MD - When: As needed - Reason: Recheck today's complaints, Re-evaluation by your physician Discharge Instructions: - Discharge Summary Sheet rn - Dysphagia rn - Upper Endoscopy, Adult rn Forms: - Medication Reconciliation Form rn - Antibiotic corn cooker - Prescription Opioid Use rn - Patient Portal Instructions rn - Leadership Thank You Letter rn Signatures: Dispatcher [employer] Darrel Sweeney MD MD rn Blanchard, Shelby, RN RN Lisa Howard, RN RN ld1
[2024-05-09 14:09] VITALS: BP 154/99; TEMP 98.2; O2SAT 99
== END 2024-05-09 14:04 | disposition home or self-care (01) ==
LOC: ER 11:25
DX: R13.10 Dysphagia, unspecified (principal); R07.0 Pain in throat
CPT/HCPCS: 36415; 70491; 80048; 85025; Q9967

== ENCOUNTER 2024-05-22 09:21 | Emergency (ER) | payer SELFPAY ==
--- OUTSIDE RECORDS SUMMARY | 2024-05-22 09:26 | XMS REPORT | Continuity of Care Document ---
Author Name Unknown Address [address] [facility] [address] [place] [address] [facility] [place] Address [address] [facility]. [address] [place] [address] Care Team Providers Care Psychological Operations Specialist Name Role Phone MARIPOSA WEINSTEIN Primary Care Physician Unav ailable CARLOS ATKINS Attending Clinician Unavailable [email or web address]_Roxanna Attending Clinician Unavaila Cindy Burns MA Attending Clinician Unavailreanna Atkins MD, Carlos Rubio Attending Clinician [phone] SHAWNEE CORTEZ Attending Clinician Unavailable Shawnee Cortez PA-C Attending Clinician [phone] Nurse, [facility] Attending Clinician Un available Anselmo Cuadra CRNA Attending Clinician [phone] Marek Samuels MD, Leonard Attending Clinician [phone] Aziza Fong MD Attending Clinician + [phone] [facility] Attending Clinician Unavailable Doctor Unassigned, [place] Attending Clinician U navailable Ultrasound, [facility] Attending Clinician Unavaila vicente Roque MD, Armando Bean Attending Clinician [phone] Room, [facility] Attending Clinician Unavailable Ultrasound, [facility] Attending Clinician Unavaila vicente Farfan MD, [place] Attending Clinician + Delio Galeano MD Attending Clinician [phone] Erica Mccarty MD Attending Clinician [phone] MARIPOSA WEINSTEIN Attending Clinician Unavail able Mariposa Gallegos Attending Clinician + CARLOS ATKINS Admitting Clinician Unavailable [email or web address]_Kadiyala_S Admitting Clinician UnavailCarlos Em MD Admitting Clinician [phone] Payers Payer Name Policy Type Policy Number Effective Date Expirati on Date Source [facility] MEDICAID [id number] 2020 00:00:00 MEDICAID PENDING PENDING 2020 00:00:00 Problems Condition Name Condition Details Condition Category Status Onset Date Resolution Date Last Treatment Date Treating Clinician Comments Source Morbid obesity with body mass index of 40.0-49.9 Morbid obesity with body mass index of 40.0-49.9 Disease Active 5- 00:00: 00 [facility] History of asthma History of asthma Disease Active 3 00:00: 00 [facility] 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 Refer to colpo clinic [facility] Allergies, Adverse Reactions, Alerts Allergy Name Allergy Type Status Severity Reaction(s) Onset Date Inactive Date Treating Clinician Comments Source AZITHROM YCIN DRUG INGREDI Active Hives 09-16 00:00: 00 [facility] Azithrom ycin Propensi ty to adverse reaction s Active Hives 09-16 00:00: 00 [facility] PENICILL INS Drug Class Active Hives 2014-03 00:00: 00 [facility] Penicill ins Propensi ty to adverse reaction s Active Hives 2014-03 00:00: 00 [facility] Amoxicil robert-Pot Clavulan ate Propensi ty to adverse reaction s Active Hives 2014-03 00:00: 00 [facility] Penicill ins Propensi ty to adverse reaction s Active Hives 2014-03 00:00: 00 [facility] AMOXICIL ROBERT-POT CLAVULAN ATE DRUG Active Hives 2014-03 00:00: 00 [facility] Social History Social Habit Start Date Stop Date Quantity Comments Source ASSERTION [facility] Exposure to SARS-CoV-2 (event) 2022-06-21 00:00:00 2022-07-01 09:55:00 Not sure [facility] Alcohol Comment 2022-07-01 00:00:00 2022-07-01 00:00:00 once or twice a month [facility] History of Social function 2021-07-01 00:00:00 2021-07-01 00:00:00 [facility] Cigarettes smoked current (pack per day) - Reported 2020-04-15 00:00:00 2020-04-15 00:00:00 [facility] Tobacco use and exposure 2020-04-15 00:00:00 2020-04-15 00:00:00 Former smokeless tobacco user [facility] Alcohol intake 2020-04-15 00:00:00 2020-04-15 00:00:00 Ex-drinker (finding) [facility] History of tobacco use 2020-04-13 00:00:00 Cigarette Smoker [facility] Sex Assigned At 1995 00:00:00 1995 00:00:00 [facility] Smoking Status Start Date Stop Date Source Occasional tobacco smoker 2020-05-13 00:00:00 [facility] Ex-smoker 2020-04-15 00:00:00 2020-04-15 00:00:00 [facility] Medications Ordered Medication Name Filled Medication Name Start Date Stop Date Current Medication? Ordering Clinician Indication Dosage Frequency Signature (SIG) Comments Components Source acetaminoph en (TYLENOL ORAL) 07-01 14:00: 56 Yes Take by mouth. [facility] 25/iron fum/folic/d cunningham (-1 ORAL) 2020-03 0- 08:34: 38 12-06 00:00 :00 No Take by mouth. [facility] vitamin w/FA tablet 2020-03 0- 00:00: 00 07-01 00:00 :00 No [id number] 1{tbl} Take 1 tablet by mouth daily. [facility] docusate calcium 240 mg capsule 2020-03 0- 00:00: 00 07-01 00:00 :00 No [id number] 240mg Take 1 capsule by mouth once daily as needed for Constipati on. [facility] ferrous sulfate 325 mg (65 mg iron) tablet 2020-03 0 00:00: 00 07-01 00:00 :00 No [id number] 325mg Take 1 tablet by mouth 2 (two) times daily. [facility] ibuprofen 600 mg tablet 2020-03 0 00:00: 00 07-01 00:00 :00 No [id number] 600mg Take 1 tablet by mouth every 6 (six) hours as needed (Pain). Take with food or milk. [facility] Immunizations Ordered Immunization Name Filled Immunization Name Date Status Comments Source Varicella (varivax)(chicken pox) 2020-12-06 00:00:00 Completed [facility] Varicella (varivax)(chicken pox) 2020-12-06 00:00:00 Completed [facility] Varicella (varivax)(chicken pox) 2020-12-06 00:00:00 Completed [facility] TDAP 2020-11-19 00:00:00 Completed [facility] TDAP 2020-10-28 00:00:00 Completed [facility] TDAP 2020-10-09 00:00:00 Completed [facility] TDAP 2020-10-08 00:00:00 Completed [facility] TDAP 2020-10-08 00:00:00 Completed [facility] TDAP 2020-10-08 00:00:00 Completed [facility] Vital Signs Vital Name Observation Time Observation Value Comments Roxanna resendez Systolic blood pressure 2022-07-01 18:17:00 130 mm[Hg] [facility] Diastolic blood pressure 2022-07-01 18:17:00 80 mm[Hg] [facility] Heart rate 2022-07-01 18:17:00 85 /min [facility] Body temperature 2022-07-01 18:17:00 36.83 Dee [facility] Body height 2022-07-01 18:17:00 162.6 cm [facility] Body weight 2022-07-01 18:17:00 109.77 kg [facility] BMI 2022-07-01 18:17:00 41.54 kg/m2 [facility] Systolic blood pressure 2021-07-01 18:53:00 119 mm[Hg] [facility] Diastolic blood pressure 2021-07-01 18:53:00 81 mm[Hg] [facility] Heart rate 2021-07-01 18:53:00 84 /min [facility] Body temperature 2021-07-01 18:53:00 36.89 Dee [facility] Body height 2021-07-01 18:53:00 162.6 cm [facility] Body weight 2021-07-01 18:53:00 99.701 kg [facility] BMI 2021-07-01 18:53:00 37.73 kg/m2 [facility] Procedures Procedure Date / Time Performed Performing Clinicia n Source LAB ONLY PAP SMEAR-LIQUID BASED 2021-07-01 19:17:00 Carlos Atkins [facility] PAP SMEAR-LIQUID BASED-CP 2021-07-01 19:17:00 Carlos Atkins [facility] Encounters Start Date/Time End Date/Time Encounter Type Admission Type Attending Clinicians Care Facility Care Department Encounter ID Source 2021-01-07 02:05:25 Outpatient P [facility] [id number] [facility] 2021-01-06 20:31:55 Emergency [facility] [id number] [facility] 2023-07-05 15:00:00 2023-07-05 15:00:00 Outpatient R CARLOS ATKINS [facility] [id number] [facility] 2023-01-02 00:00:00 2023-01-02 00:00:00 Outpatient GC_GCBZW_Ka yaneliyala_S [facility] [id number] [facility] 2022-08-27 00:00:00 2022-08-27 00:00:00 Case Management Howard Cindymichael [facility] [place] 1..840.114 350.1.13.10 4.2.7.2.686 [id number] [facility] 2022-07-01 13:30:00 2022-07-01 13:54:34 Outpatient R CARLOS ATKINS [facility] [id number] [facility] 2022-07-01 13:30:00 2022-07-01 13:54:34 Office Visit Carlos Atkins [facility] 1..840.114 350.1.13.10 4.2.7.2.686 [id number] [facility] 2021-07-01 13:45:00 2021-07-01 14:20:55 Outpatient R CARLOS ATKINS [facility] [id number] [facility] 2021-07-01 13:45:00 2021-07-01 14:20:55 Office Visit Carlos Atkins [facility] 1..840.114 350.1.13.10 4.2.7.2.686 [id number] 134 [id number] [facility] 2021-07-01 13:45:00 2021-07-01 14:20:55 Outpatient R CARLOS ATKINS [facility] [id number] [facility] 2021-01-14 00:00:00 2021-01-14 00:00:00 Telephone Carlos Atkins [facility] 1..840.114 350.1.13.10 4.2.7.2.686 [id number] [facility] 2021-01-02 16:00:00 2021-01-02 17:05:31 Outpatient R VANAPHAN, SHAWNEE [facility] [id number] [facility] 2021-01-02 15:59:41 2021-01-02 17:05:31 [facility] 1.2.840.114 350.1.13.10 4.2.7.2.686 [id number] [facility] 2020-12-12 00:00:00 2020-12-12 00:00:00 [facility] 1.2.840.114 350.1.13.10 4.2.7.2.686 [id number] [facility] 2020-12-10 14:56:17 2020-12-10 15:30:53 Nurse Visit Nurse, [facility] Carlos Atkins [facility] Building 1.2.840.114 350.1.13.10 4.2.7.2.686 [id number] [facility] 2020-12-10 14:30:00 2020-12-10 14:30:00 Outpatient R CARLOS ATKINS [facility] [id number] [facility] 2020-12-09 10:45:00 2020-12-09 10:45:00 Outpatient R CARLOS ATKINS [facility] [id number] [facility] 2020-12-03 15:41:00 2020-12-06 15:05:00 Hospital Encounter Carlos Atkins [facility] 1.2.840.114 350.1.13.10 4.2.7.2.686 [id number] [facility] 2020-12-05 20:03:17 2020-12-05 20:03:17 Anesthesia Event Anselmo Cuadra [facility] 1.2.840.114 350.1.13.10 4.2.7.2.686 [id number] [facility] 2020-12-04 22:25:00 2020-12-05 12:25:00 Anesthesia Event Alex Jara, Aziza [facility] 1.2.840.114 350.1.13.10 4.2.7.2.686 [id number] [facility] 2020-12-03 14:13:05 2020-12-03 15:25:55 Routine Visit Carlos Atkins [facility] Building 1.2.840.114 350.1.13.10 4.2.7.2.686 [id number] [facility] 2020-12-03 14:15:00 2020-12-03 14:15:[address] 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 Building 1.2.840.114 350.1.13.10 4.2.7.2.686 [id number] [facility] 2020-11-29 14:30:00 2020-11-29 14:30:00 Outpatient R [facility] [id number] [facility] 2020-11-25 15:14:06 2020-11-25 16:29:36 Routine Visit Carlos Atkins [facility] Building 1.2.840.114 350.1.13.10 4.2.7.2.686 [id number] [facility] 2020-11-25 15:15:00 2020-11-25 15:15:[address] [facility] [id number] [facility] 2020-11-25 00:00:00 2020-11-25 00:00:00 Orders Only Doctor Unassigned, [place] [facility] 1.84.114 350.1.13.10 4.2.7.2.686 [id number] [facility] 2020-11-22 13:25:01 2020-11-22 13:55:01 [employer] Leader Visit Ultrasound, Adc Armando Heredia [facility] 1.84.114 350.1.13.10 4.2.7.2.686 [id number] [facility] 2020-11-22 13:30:00 2020-11-22 13:30:00 Outpatient P [facility] [id number] [facility] 2020-11-21 14:45:00 2020-11-21 14:45:00 Outpatient R SHAWNEE CORTEZ [facility] [id number] [facility] 2020-11-21 14:00:00 2020-11-21 14:00:00 Outpatient R [facility] [id number] [facility] 2020-11-19 11:30:00 2020-11-19 11:30:00 Outpatient R DANA SHAWNEE [facility] [id number] [facility] 2020-11-19 00:00:00 2020-11-19 00:00:00 Patient Secure Msg Doctor Unassigned, [place] [facility] 1.2840.114 350.1.13.10 4.2.7.2.686 [id number] 134 [id number] [facility] 2020-11-18 10:05:39 2020-11-18 11:15:17 Routine Visit Room, Adc Carlos Padilla [facility] 1.2.840.114 350.1.13.10 4.2.7.2.686 [id number] [facility] 2020-11-18 10:00:00 2020-11-18 10:00:00 Outpatient R [facility] [id number] [facility] 2020-11-15 00:00:00 2020-11-15 00:00:00 Telephone Carlos Atkins [facility] 1.2.840.114 350.1.13.10 4.2.7.2.686 [id number] [facility] 2020-11-15 00:00:00 2020-11-15 00:00:00 Telephone Carlos Atkins [facility] Building 1.2.840.114 350.1.13.10 4.2.7.2.686 [id number] [facility] 2020-11-13 09:07:01 2020-11-13 10:11:21 Routine Visit Room, [facility] Carlos Atkins [facility] Building 1.2.840.114 350.1.13.10 4.2.7.2.686 [id number] [facility] 2020-11-13 09:07:01 2020-11-13 10:11:21 Routine Visit Room, [facility] Carlos Atkins [facility] Building 1.2.840.114 350.1.13.10 4.2.7.2.686 [id number] [facility] 2020-11-13 09:00:00 2020-11-13 09:00:00 Outpatient R [facility] [id number] [facility] 2020-11-12 00:00:00 2020-11-12 00:00:00 Telephone [facility] Building 1.2.840.114 350.1.13.10 4.2.7.2.686 [id number] [facility] 2020-11-12 00:00:00 2020-11-12 00:00:00 Telephone Carlos Atkins [facility] 1.2.840.114 350.1.13.10 4.2.7.2.686 [id number] [facility] 2020-11-10 03:32:00 2020-11-10 04:35:00 Emergency Carlos Atkins [facility] 1.2.840.114 350.1.13.10 4.2.7.2.686 [id number] [facility] 2020-11-10 03:32:00 2020-11-10 04:35:00 Emergency Carlos Atkins [facility] 1.2.840.114 350.1.13.10 4.2.7.2.686 [id number] [facility] 2020-11-08 00:00:00 2020-11-08 00:00:00 Orders Only Doctor Unassigned, [place] [facility] 1.2.840.114 350.1.13.10 4.2.7.2.686 [id number] [facility] 2020-11-08 00:00:00 2020-11-08 00:00:00 Orders Only Doctor Unassigned, [place] [facility] 1.2.840.114 350.1.13.10 4.2.7.2.686 [id number] [facility] 2020-11-06 13:03:27 2020-11-06 14:13:35 Routine Visit Carlos Atkins [facility] 1.2.840.114 350.1.13.10 4.2.7.2.686 [id number] 134 [id number] [facility] 2020-11-06 13:03:27 2020-11-06 14:13:35 Routine Visit Carlos Atkins [facility] 1.2.840.114 350.1.13.10 4.2.7.2.686 [id number] [facility] 2020-11-06 13:00:00 2020-11-06 13:00:[address] [facility] [id number] [facility] 2020-10-31 00:00:00 2020-10-31 00:00:00 [facility] 1.2.840.114 350.1.13.10 4.2.7.2.686 [id number] [facility] 2020-10-31 00:00:00 2020-10-31 00:00:00 [facility] 1.2.840.114 350.1.13.10 4.2.7.2.686 [id number] 134 [id number] [facility] 2020-10-28 14:10:50 2020-10-28 14:26:46 Nurse Visit Nurse, [facility] Carlos Atkins [facility] 1.2.840.114 350.1.13.10 4.2.7.2.686 [id number] 134 [id number] [facility] 2020-10-28 14:00:00 2020-10-28 14:00:00 Outpatient R [facility] [id number] [facility] 2020-10-28 00:00:00 2020-10-28 00:00:00 Patient Secure Msg Doctor Unassigned, [place] [facility] 1.2.840.114 350.1.13.10 4.2.7.2.686 [id number] 134 [id number] [facility] 2020-10-23 16:06:20 2020-10-23 16:58:45 Routine Visit Shawnee Cortez [facility] Building 1.2.840.114 350.1.13.10 4.2.7.2.686 [id number] [facility] 2020-10-23 16:15:00 2020-10-23 16:15:00 Outpatient R SHAWNEE CORTEZ [facility] [id number] [facility] 2020-10-21 13:43:37 2020-10-21 14:28:37 [employer] Visit Ultrasound, Mary Ellen Saravia [facility] STORE DELI MANAGER [facility] 1..840.114 350.1.13.10 4.2.7.2.686 [id number] [facility] 2020-10-21 13:45:00 2020-10-21 13:45:00 Outpatient P [facility] [id number] [facility] 2020-10-09 00:00:00 2020-10-09 00:00:00 Patient Secure Msg Doctor Unassigned, [place] [facility] 1.2.840.114 350.1.13.10 4.2.7.2.686 [id number] [facility] 2020-10-08 15:39:08 2020-10-08 16:17:14 Routine Visit Carlos Atkins [facility] 1.2.840.114 350.1.13.10 4.2.7.2.686 [id number] [facility] 2020-10-08 15:30:00 2020-10-08 15:30:00 Outpatient R CARLOS ATKINS [facility] [id number] [facility] 2020-09-13 08:44:03 2020-09-13 08:59:03 [employer] Leader Visit 2, Adc Lab Carlos Atkins [facility] 1.2.840.114 350.1.13.10 4.2.7.2.686 [id number] [facility] 2020-09-13 08:30:00 2020-09-13 08:30:00 Outpatient R [facility] [id number] [facility] 2020-09-12 00:00:00 2020-09-12 00:00:00 Telephone JoshShawnee monreal [facility] 1.2.840.114 350.1.13.10 4.2.7.2.686 [id number] [facility] 2020-09-11 00:00:00 2020-09-11 00:00:00 Case Management Joshjocelin Shawnee [facility] 1.2.840.114 350.1.13.10 4.2.7.2.686 [id number] [facility] 2020-09-10 14:24:19 2020-09-10 14:39:19 [employer] Leader Visit 2, Adc Lab Shawnee Cortez [facility] 1.2.840.114 350.1.13.10 4.2.7.2.686 [id number] [facility] 2020-09-10 14:30:00 2020-09-10 14:30:00 Outpatient R [facility] [id number] [facility] 2020-09-10 13:41:38 2020-09-10 14:20:52 Routine Visit JoshEleonora monrealcy [facility] 1.2.840.114 350.1.13.10 4.2.7.2.686 [id number] [facility] 2020-08-30 00:00:00 2020-08-30 00:00:00 Telephone Carlos Atkins [facility] 1.2.84.114 350.1.13.10 4.2.7.2.686 [id number] [facility] 2020-08-27 08:09:38 2020-08-27 08:39:38 [employer] Leader Visit Ultrasound, Delio Douglass [facility] STORE DELI MANAGER [facility] 1.840.114 350.1.13.10 4.2.7.2.686 [id number] [facility] 2020-08-27 08:00:00 2020-08-27 08:00:00 Outpatient P [facility] [id number] [facility] 2020-08-12 10:57:32 2020-08-12 11:55:43 Routine Visit Carlos Atkins [facility] 1.840.114 350.1.13.10 4.2.7.2.686 [id number] [facility] 2020-08-12 11:00:00 2020-08-12 11:00:00 Outpatient R MILLY CARLOS [facility] [id number] [facility] 2020-07-30 13:37:12 2020-07-30 14:37:12 [employer] Visit Ultrasound, MonicaErica Venegas [facility] STORE DELI MANAGER [facility] 1.84.114 350.1.13.10 4.2.7.2.686 [id number] [facility] 2020-07-30 13:45:00 2020-07-30 13:45:00 Outpatient P [facility] [id number] [facility] 2020-07-15 09:53:14 2020-07-15 10:08:14 [employer] Leader Visit 2, Adc Lab Carlos Atkins [facility] 1.840.114 350.1.13.10 4.2.7.2.686 [id number] [facility] 2020-07-15 08:43:48 2020-07-15 08:58:48 Routine Visit [facility] [id number] 350.1.13.10 [id number] [id number] [facility] 2020-07-15 08:45:00 2020-07-15 08:45:00 Outpatient R CARLOS ATKINS [facility] [id number] [facility] 2020-07-08 00:00:00 2020-07-08 00:00:00 Telephone aCrlos Atkins [facility] [id number] 350.1.13.10 4.2.7.2.686 [id number] [facility] 2020-06-26 00:00:00 2020-06-26 00:00:00 Telephone Carlos Atkins [facility] [id number] 350.1.13.10 4.2.7.2.686 [id number] [facility] 2020-06-17 08:25:38 2020-06-17 10:05:24 Office Visit Carlos Aktins [facility] 1.2.840.114 350.1.13.10 4.2.7.2.686 [id number] [facility] 2020-06-17 08:30:00 2020-06-17 08:30:00 Outpatient R CARLOS ATKINS [facility] [id number] [facility] 2020-06-17 00:00:00 2020-06-17 00:00:00 Orders Only Doctor Unassigned, [place] [facility] [id number] 350.1.13.10 4.2.7.2.686 [id number] [facility] 2020-06-10 10:30:00 2020-06-10 10:30:00 Outpatient R MARIPOSA WEINSTEIN [facility] [id number] [facility] 2020-06-10 10:00:00 2020-06-10 10:00:00 Outpatient R [facility] [id number] [facility] 2020-05-13 14:38:10 2020-05-13 16:11:12 Initial Visit Carlos Atkins [facility] 1.840.114 350.1.13.10 4.2.7.2.686 [id number] [facility] 2020-05-13 10:26:38 2020-05-13 11:39:02 Routine Visit Mariposa Weinstein [facility] STORE DELI MANAGER [facility] 1.840.114 350.1.13.10 4.2.7.2.686 [id number] [facility] 2020-05-13 11:00:00 2020-05-13 11:00:00 Outpatient R MARIPOSA WEINSTEIN [facility] [id number] [facility] 2020-05-13 00:00:00 2020-05-13 00:00:00 Orders Only Doctor Unassigned, [place] [facility] .84.114 350.1.13.10 4.2.7.2.686 [id number] [facility] 2020-05-02 00:00:00 2020-05-02 00:00:00 Telephone aMriposa Weinstein [facility] STORE DELI MANAGER [facility]ILD [facility] 1.84.114 350.1.13.10 4.2.7.2.686 [id number] [facility] 2020-04-17 00:00:00 2020-04-17 00:00:00 Patient Secure Msg Doctor Unassigned, [place] [facility] STORE DELI MANAGER [facility] 1..840.114 350.1.13.10 4.2.7.2.686 [id number] [facility] 2020-04-15 08:30:00 2020-04-15 08:30:00 Outpatient R MARIPOSA WEINSTEIN [facility] [id number] [facility] 2020-04-15 00:00:00 2020-04-15 00:00:00 Orders Only Doctor Unassigned, [place] [facility] 1..840.114 350.1.13.10 4.2.7.2.686 [id number] [facility]
--- NOTE | 2024-05-22 09:41 | EDPHYS ---
Physician Documentation [facility] Name: Pavithra Chester Age: 28 yrs Sex: Female : 1995 Arrival Date: 05/22/2024 Time: 09:21 Bed 19 Private MD: ED Physician Padmini Tamez HPI: 05/22 09:37 This 28 yrs old Female presents to ER via Ambulatory with complaints of Throat sp3 Irritability. 09:37 28-year-old female with no significant past medical history was seen here a little over sp3 a week ago for similar issues now presents for recurrence of throat irritability. She denies any bleeding, fever, headache, lymph node swelling, known sick contacts, travel history, inability to swallow, or any other signs or symptoms on ROS at this time. On her last visit, laboratory values were normal and soft tissue x-ray of the neck demonstrated small likely benign nodule which she was told about. She was also referred to GI outpatient for follow-up. She was unable to be seen and states that her symptoms were fully resolved now since they are back she returns here for further instruction.. Historical: - Allergies: 09:36 Amoxicillin; ss 09:36 Augmentin; ss 09:36 Zithromax; ss - Infectious Disease History:: Denies. - Social history:: Smoking status: Reported history of juuling and/or vaping. ROS: 09:38 Constitutional: Negative for fever, chills, and weight loss, Eyes: Negative for injury, sp3 pain, redness, and discharge, Neck: Negative for injury, pain, and swelling, Cardiovascular: Negative for chest pain, palpitations, and edema, Respiratory: Negative for shortness of breath, cough, wheezing, and pleuritic chest pain, Abdomen/GI: Negative for abdominal pain, nausea, vomiting, diarrhea, and constipation, Back: Negative for injury and pain, MS/Extremity: Negative for injury and deformity, Skin: Negative for injury, rash, and discoloration, Neuro: Negative for headache, weakness, numbness, tingling, and seizure, Psych: Negative for depression, anxiety, suicide ideation, homicidal ideation, and hallucinations, Allergy/Immunology: Negative for hives, rash, and allergies, Endocrine: Negative for neck swelling, polydipsia, polyuria, polyphagia, and marked weight changes, Hematologic/Lymphatic: Negative for swollen nodes, abnormal bleeding, and unusual bruising, 09:38 All other systems are negative, Exam: 09:38 Constitutional: This is a well developed, well nourished patient who is awake, alert, sp3 and in no acute distress. Head/Face: Normocephalic, atraumatic. Eyes: Pupils equal round and reactive to light, extra-ocular motions intact. Lids and lashes normal. Conjunctiva and sclera are non-icteric and not injected. Cornea within normal limits. Periorbital areas with no swelling, redness, or edema. ENT: Nares patent. No nasal discharge, no septal abnormalities noted. External auditory canals are clear. Oropharynx with no redness, swelling, or masses, exudates, or evidence of obstruction, uvula midline. Mucous membranes moist. Neck: Trachea midline, no thyromegaly or masses palpated, and no cervical lymphadenopathy. Supple, full range of motion without nuchal rigidity, or vertebral point tenderness. No Meningismus. Chest/axilla: Normal chest wall appearance and motion. Nontender with no deformity. No lesions are appreciated. Cardiovascular: Regular rate and rhythm with a normal S1 and S2. No gallops, murmurs, or rubs. Normal PMI, no JVD. No pulse deficits. Respiratory: Lungs have equal breath sounds bilaterally, clear to auscultation and percussion. No rales, rhonchi or wheezes noted. No increased work of breathing, no retractions or nasal flaring. Abdomen/GI: Soft, non-tender, with normal bowel sounds. No distension or tympany. No guarding or rebound. No evidence of tenderness throughout. Back: No spinal tenderness. No costovertebral tenderness. Full range of motion. Skin: Warm, dry with normal turgor. Normal color with no rashes, no lesions, and no evidence of cellulitis. MS/ Extremity: Pulses equal, no cyanosis. Neurovascular intact. Full, normal range of motion. Neuro: Awake and alert, GCS 15, oriented to person, place, time, and situation. Cranial nerves II-XII grossly intact. Motor strength 5/5 in all extremities. Sensory grossly intact. Cerebellar exam normal. Normal gait. Vital Signs: 09:34 BP 127 / 74; Pulse 82; Resp 16; Temp 97.6(O); Pulse Ox 97% on R/A; Weight 108.86 kg; ss Height 5 ft. 4 in. ; Pain 05/15; 09:34 Body Mass Index 41.20 (108.86 kg, 162.56 cm) 09:34 Pain Scale: Adult ss MDM: 09:28 Medical Screening Exam initiated sp3 09:38 Data reviewed: vital signs, nurses notes, old medical records. ED course: 19-year-old sp3 female with recurrent throat irritability. Exam demonstrates no erythema, uvular shift, peritonsillar swelling or any other physical exam abnormality. I reiterated to her about her nodule and need to follow-up with both ENT and GI for which we will give referral. Differential diagnosis includes viral illness, nodule induced irritability, among others. Patient has no indications for further workup in the ED and will need to see subspecialist for further progression of her care. Will administer Decadron 10 mg IM for symptomatic control and DC to outpatient follow-up. Patient acknowledges need for follow-up and states that she will do so.. Administered Medications: 09:55 Drug: Dexamethasone IM 10 mg IM once Route: IM; Site: right gluteus; aa5 10:20 Follow up: Response: No adverse reaction aa5 Disposition Summary: 05/22/24 09:41 Discharge Ordered Notes: Location: Home sp3 Condition: Stable sp3 Diagnosis - Dysphagia sp3 - Throat irritability, sore throat sp3 Followup: sp3 - With: Minnie Lara MD - When: Upon discharge from the Emergency Department - Reason: Recheck today's complaints Followup: sp3 - With: Han Isabel MD - When: Upon discharge from the Emergency Department - Reason: Recheck today's complaints Discharge Instructions: - Discharge Summary Sheet sp3 - Laryngitis, [id number] sp3 Forms: - Medication Reconciliation Form sp3 - Antibiotic Education sp3 - Prescription Opioid Use sp3 - Patient Portal Instructions sp3 - Leadership Thank You Letter sp3 Signatures: Jessica Sky RN RN aa5 Natalia Flynn RN RN ss Padmini Tamez MD MD sp3
--- NOTE | 2024-05-22 09:41 | ER ---
Nurse's Notes [facility] Name: Pavithra Chester Age: 28 yrs Sex: Female : 1995 Arrival Date: 05/22/2024 Time: 09:21 Bed 19 Private MD: Diagnosis: Dysphagia;Throat irritability, sore throat Presentation: 05/22 09:34 Chief complaint: Patient states: throat irritability that began Saturday night. Pt was ss seen recently with same complaint. Pt states, "I mostly just want my release back to work filled out.". Coronavirus screen: Client denies travel out of the [place] in the last 14 days. Ebola Screen: Patient denies exposure to infectious person. Patient denies travel to an Ebola-affected area in the 21 days before illness onset. Initial Sepsis Screen: Does the patient meet any 2 criteria? No. Patient's initial sepsis screen is negative. Does the patient have a suspected source of infection? No. Patient's initial sepsis screen is negative. Risk Assessment: Do you want to hurt yourself or someone else? Patient reports no desire to harm self or others. Onset of symptoms is unknown. 09:34 Method Of Arrival: Ambulatory ss 09:34 Acuity: LARRY 4 ss Historical: - Allergies: 09:36 Amoxicillin; ss 09:36 Augmentin; ss 09:36 Zithromax; ss - Infectious Disease History:: Denies. - Social history:: Smoking status: Reported history of juuling and/or vaping. Screenin:40 [facility] ED Fall Risk Assessment (Adult) History of falling in the last 3 months, aa5 including since admission No falls in past 3 months (0 pts) Confusion or Disorientation No (0 pts) Intoxicated or Sedated No (0 pts) Impaired Gait No (0 pts) Mobility Assist Device Used No (0 pt) Altered Elimination No (0 pt) Score/Fall Risk Level 0 - 2 = Low Risk Oriented to surroundings, Maintained a safe environment, Educated pt \\T\\ family on fall prevention, incl call for assistance when getting out of bed, Assessed \\T\\ reinforced patient's understanding of fall precautions. Abuse screen: Denies threats or abuse. Nutritional screening: No deficits noted. Tuberculosis screening: No symptoms or risk factors identified. Assessment: 09:40 General: Appears comfortable, Behavior is calm, cooperative. Pain: Denies pain. Neuro: aa5 Level of Consciousness is awake, alert, obeys commands, Oriented to person, place, time, situation. Cardiovascular: Patient's skin is warm and dry. Respiratory: Airway is patent Respiratory effort is even, unlabored, Respiratory pattern is regular, symmetrical. GI: No signs and/or symptoms were reported involving the gastrointestinal system. : No signs and/or symptoms were reported regarding the genitourinary system. EENT: Reports sore throat. Derm: Skin is pink, warm \\T\\ dry. Musculoskeletal: Range of motion: intact in all extremities. 10:20 Reassessment: Patient is alert, oriented x 3, equal unlabored respirations, skin aa5 warm/dry/pink. Vital Signs: 09:34 BP 127 / 74; Pulse 82; Resp 16; Temp 97.6(O); Pulse Ox 97% on R/A; Weight 108.86 kg; ss Height 5 ft. 4 in. ; Pain 3/10; 09:34 Body Mass Index 41.20 (108.86 kg, 162.56 cm) ss 09:34 Pain Scale: Adult ss ED Course: 09:26 Patient arrived in ED. cj3 09:26 Padmini Tamez MD is Attending Physician. sp3 09:32 Jessica Sky, KEILY is Primary Nurse. aa5 09:36 Triage completed. ss 09:36 Arm band placed on right wrist. ss 09:40 Minnie Lara MD is Referral Physician. sp3 09:40 Han Isabel MD is Referral Physician. sp3 09:40 Patient has correct armband on for positive identification. Bed in low position. Call aa5 light in reach. Side rails up X 1. 10:20 No provider procedures requiring assistance completed. Patient did not have IV access aa5 during this emergency room visit. Administered Medications: 09:55 Drug: Dexamethasone IM 10 mg IM once Route: IM; Site: right gluteus; aa5 10:20 Follow up: Response: No adverse reaction aa5 Medication: 09:55 VIS not applicable for this client. aa5 Outcome: 09:41 Discharge ordered by . sp3 10:20 Discharged to home ambulatory, aa5 10:20 Condition: stable 10:20 Discharge instructions given to patient, Instructed on discharge instructions, follow up and referral plans. Demonstrated understanding of instructions, follow-up care, 10:23 Patient left the ED. aa5 Signatures: Jessica Sky RN RN aa5 Natalia Flynn RN RN ss Padmini Tamez MD MD sp3 Ana Maria Darden cj3
[2024-05-22] MEDS ORDERED: dexAMETHasone 10 MG/ML VIAL ONE (09:48)
[2024-05-22 10:31] VITALS: BP 127/74; TEMP 97.6; O2SAT 97
== END 2024-05-22 10:23 | disposition home or self-care (01) ==
LOC: ER 09:21
DX: R13.10 Dysphagia, unspecified (principal); J02.9 Acute pharyngitis, unspecified
CPT/HCPCS: 96372; 99284; J1100

== ENCOUNTER 2025-01-03 09:47 | Emergency (ER) | payer SELFPAY ==
[2025-01-03] MEDS ORDERED: ONDANSETRON 4 MG/2 ML VIAL ONE (10:33)
[2025-01-03] MEDS ORDERED: NA CHLORIDE 0.9% 1,000 ML ONE (10:33)
[2025-01-03 10:34] LABS: Absolute Lymphocytes (CBC) 1.6 K/uL (0.7-4.9); Hematocrit 42.4 % (36.0-45.0); Hemoglobin 14.3 g/dL (12.0-15.0); MCH 30.0 pg (27.0-35.0); MCHC 33.8 g/dL (32.0-36.0); MCV 88.8 fL (80-100); MPV 7.7 fL (7.6-11.3); Nucleated RBC Absolute Count 0.0 (0-0); Nucleated Red Blood Cells % 0.0 % (0-0); RBC Red Blood Cell Count 4.78 M/uL (3.86-4.86); White Blood Count 11.30 thou/uL (4.3-10.9)
[2025-01-03 10:49] LABS: ALT/SGPT 27.0 U/L (13-56); AST/SGOT 16.0 U/L (15-37); Albumin 3.7 g/dL (3.4-5.0); Albumin/Globulin Ratio 1.2 (1.1-1.8); Alkaline Phosphatase 30.0 U/L (45-117); Anion Gap 9.5 mEq/L (5.0-15.0); BUN Blood Urea Nitrogen 8.0 mg/dL (7-18); Globulin 3.2 g/dL (2.3-3.5); Glucose Level 103.0 mg/dL (74-106); Lipase 22.0 U/L (13-75); Potassium 3.5 mEq/L (3.5-5.1)
--- NOTE | 2025-01-03 12:05 | ER ---
Nurse's Notes [facility] Name: Pavithra Chester Age: 29 yrs Sex: Female : 1995 Arrival Date: 01/03/2025 Time: 09:47 Bed 19 Private MD: Diagnosis: Other ovarian cysts Presentation: 01/03 10:13 Chief complaint: Patient states: PT STATES RLQ PAIN x3 DAYS. Coronavirus screen: At bp this time, the client does not indicate any symptoms associated with coronavirus-19. Ebola Screen: No symptoms or risks identified at this time. Initial Sepsis Screen: Does the patient meet any 2 criteria? No. Patient's initial sepsis screen is negative. Does the patient have a suspected source of infection? No. Patient's initial sepsis screen is negative. Risk Assessment: Do you want to hurt yourself or someone else? Patient reports no desire to harm self or others. Onset of symptoms is unknown. 10:13 Method Of Arrival: Ambulatory bp 10:13 Acuity: LARRY 3 bp Triage Assessment: 10:15 General: Appears in no apparent distress. Behavior is calm, cooperative, appropriate bp for age. Pain: Complains of pain in right lower quadrant. EENT: No deficits noted. Neuro: No deficits noted. Cardiovascular: No deficits noted. Respiratory: No deficits noted. GI: Reports lower abdominal pain. : No signs and/or symptoms were reported regarding the genitourinary system. Derm: No deficits noted. Musculoskeletal: No deficits noted. 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 - Infectious Disease History:: Denies. - Social history:: Smoking status: Patient denies any tobacco usage or history of. Screenin:25 [facility] ED Fall Risk Assessment (Adult) History of falling in the last 3 months, cc6 including since admission No falls in past 3 months (0 pts) Confusion or Disorientation No (0 pts) Intoxicated or Sedated No (0 pts) Impaired Gait No (0 pts) Mobility Assist Device Used No (0 pt) Altered Elimination No (0 pt) Score/Fall Risk Level 0 - 2 = Low Risk Oriented to surroundings, Maintained a safe environment, Hourly rounding (assess needs \T\ fall precautionary measures) done. Abuse screen: Denies threats or abuse. Denies injuries from another. Nutritional screening: No deficits noted. Tuberculosis screening: No symptoms or risk factors identified. Assessment: 10:25 General: Appears in no apparent distress. uncomfortable, Behavior is cooperative, cc6 appropriate for age, crying. Pain: Complains of pain in right lower quadrant Pain radiates to suprapubic area. Neuro: Level of Consciousness is awake, alert, obeys commands, Oriented to person, place, time, situation, Appropriate for age. Cardiovascular: Capillary refill < 3 seconds Patient's skin is warm and dry. Respiratory: Airway is patent Respiratory effort is even, unlabored, Respiratory pattern is regular, symmetrical. GI: Abdomen is round non-distended, Bowel sounds present X 4 quads. Abd is soft X 4 quads Abdomen is tender to palpation in right lower quadrant Reports nausea. : No signs and/or symptoms were reported regarding the genitourinary system. EENT: No signs and/or symptoms were reported regarding the EENT system. Derm: No signs and/or symptoms reported regarding the dermatologic system. Musculoskeletal: No signs and/or symptoms reported regarding the musculoskeletal system. 11:39 Reassessment: Patient and/or family updated on plan of care and expected duration. Pain cc6 level reassessed. Patient is alert, oriented x 3, equal unlabored respirations, skin warm/dry/pink. 12:05 Reassessment: Patient appears in no apparent distress at this time. Patient and/or kj2 family updated on plan of care and expected duration. Pain level reassessed. 13:05 Reassessment: Patient appears in no apparent distress at this time. Patient and/or kj2 family updated on plan of care and expected duration. Pain level reassessed. 13:59 Reassessment: Patient appears in no apparent distress at this time. kj2 Vital Signs: 10:13 BP 135 / 91; Pulse 84; Resp 16; Temp 98; Pulse Ox 97% ; bp 11:39 BP 141 / 77; Pulse 54; Resp 16; Pulse Ox 100% on R/A; cc6 13:05 BP 129 / 83; Pulse 67; Resp 20; Pulse Ox 100% ; kj2 13:59 BP 128 / 82; Pulse 68; Resp 20; Temp 98.1; Pulse Ox 100% on R/A; kj2 ED Course: 09:51 Patient arrived in ED. al6 09:54 Evans Gary [facility]C [facility]5 09:54 Matt Howard DO is Attending Physician. dr5 10:15 Triage completed. bp 10:15 Arm band placed on. bp 10:25 Bed in low position. Call light in reach. Side rails up X 1. Provided Education on: use cc6 of call light, need for NPO.. 10:25 Inserted saline lock: 22 gauge in right forearm, using aseptic technique. Blood cc6 collected. Flushed with 10 mL NS. 10:27 Ursula Acosat, RN is Primary Nurse. cc6 12:44 CT Abd/Pelvis - PO and IV Contrast In Process Unspecified. EDMS 13:57 Kinjal Bermudez MD is Referral Physician. dr5 14:00 No provider procedures requiring assistance completed. IV discontinued, intact, kj2 bleeding controlled, No redness/swelling at site. Pressure dressing applied. Administered Medications: 10:47 Drug: Ondansetron IVP 4 mg IVP once; over 2 minutes Route: IVP; Site: right forearm; cc6 14:15 Follow up: Response: No adverse reaction kj2 10:47 Drug: NS 0.9% IV 1000 ml IV at 1 bolus Per protocol; to be given as a bolus over 60 cc6 minutes Route: IV; Rate: 1 bolus; Site: right forearm; 14:14 Follow up: IV Status: Completed infusion; IV Intake: 1000ml kj2 Medication: 13:59 VIS not applicable for this client. kj2 Intake: 14:14 IV: 1000ml; Total: 1000ml. kj2 Outcome: 12:04 Discharge ordered by . dr5 13:57 Discharge ordered by . dr5 14:00 Discharged to home ambulatory, kj2 14:00 Condition: stable 14:00 Discharge instructions given to patient, Instructed on discharge instructions, follow up and referral plans. Demonstrated understanding of instructions, follow-up care, 14:15 Patient left the ED. kj2 Signatures: Dispatcher [employer] EDMS Anselmo Ogden, RN RN Christiana Prater RN RN kj2 Ursula Acosta, RN RN cc6 Evans Gary, [employer]-C [employer]-Cdr5 Karla Pratt
--- NOTE | 2025-01-03 12:05 | EDPHYS ---
Physician Documentation [facility] Name: Pavithra Chester Age: 29 yrs Sex: Female : 1995 Arrival Date: 01/03/2025 Time: 09:47 Bed 19 Private MD: ED Physician Matt Howard HPI: 01/03 11:52 This 29 yrs old Female presents to ER via Ambulatory with complaints of dr5 Abdominal Pain. 11:52 The patient presents with abdominal pain right lower quadrant. Onset: The dr5 symptoms/episode began/occurred 3 day(s) ago. Patient is a 29-year-old female with no past medical history coming in with right lower quadrant abdominal pain has been going on for past 3 days. Patient reports that her pain started Wednesday night and has been constant ever since. Patient denies fever, upper abdominal pain, nausea, vomiting, diarrhea.. ACADEMIC REGISTRAR: 14:00 Not kj2 Historical: - Allergies: 10:15 Amoxicillin; bp 10:15 Augmentin; bp 10:15 Zithromax; bp - Home Meds: 10:15 None [Active]; bp - PMHx: 10:15 None; bp - Immunization history:: Adult Immunizations up to date. - Infectious Disease History:: Denies. - Social history:: Smoking status: Patient denies any tobacco usage or history of. ROS: 11:52 Constitutional: as per hpi dr5 Exam: 11:52 Constitutional: This is a well developed, well nourished patient who is awake, alert, dr5 and in no acute distress. Head/Face: Normocephalic, atraumatic. ENT: Nares patent. No nasal discharge, no septal abnormalities noted. Tympanic membranes are normal and external auditory canals are clear. Oropharynx with no redness, swelling, or masses, exudates, or evidence of obstruction, uvula midline. Mucous membranes moist. Neck: Trachea midline, no thyromegaly or masses palpated, and no cervical lymphadenopathy. Supple, full range of motion without nuchal rigidity, or vertebral point tenderness. No Meningismus. Chest/axilla: Normal chest wall appearance and motion. Nontender with no deformity. No lesions are appreciated. Cardiovascular: Regular rate and rhythm with a normal S1 and S2. Normal PMI, no JVD. No pulse deficits. Respiratory: Lungs have equal breath sounds bilaterally, clear to auscultation. No rales, rhonchi or wheezes noted. No increased work of breathing, no retractions or nasal flaring. Back: No spinal tenderness. No costovertebral tenderness. Full range of motion. Skin: Warm, dry with normal turgor. Normal color with no rashes, no lesions, and no evidence of cellulitis. MS/ Extremity: Pulses equal, no cyanosis. Neurovascular intact. Full, normal range of motion. Neuro: Awake and alert, GCS 15, oriented to person, place, time, and situation. Cranial nerves II-XII grossly intact. Motor strength 5/5 in all extremities. Sensory grossly intact. Cerebellar exam normal. Normal gait. 11:52 Abdomen/GI: Inspection: abdomen appears normal, Bowel sounds: normal, active, Palpation: moderate abdominal tenderness, in the right lower quadrant, Vital Signs: 10:13 BP 135 / 91; Pulse 84; Resp 16; Temp 98; Pulse Ox 97% ; bp 11:39 BP 141 / 77; Pulse 54; Resp 16; Pulse Ox 100% on R/A; cc6 13:05 BP 129 / 83; Pulse 67; Resp 20; Pulse Ox 100% ; kj2 13:59 BP 128 / 82; Pulse 68; Resp 20; Temp 98.1; Pulse Ox 100% on R/A; kj2 MDM: 09:54 Medical Screening Exam initiated dr5 16:12 Differential diagnosis: non-specific abd pain, Tubal Ovarian Abcess, urinary tract dr5 infection, Ovarian cyst. Data reviewed: vital signs, nurses notes, lab test result(s), amylase and lipase, CBC, white blood cell count, hemoglobin, hematocrit, platelets, electrolytes, sodium, potassium, chloride, serum bicarbonate, BUN, creatinine, serum glucose, radiologic studies, CT scan. Consideration of Admission/Observation Escalation of care including admission/observation considered. Escalation considered patient found to have appendicitis on CT scan. I considered the following discharge prescriptions or medication management in the emergency department I discussed and recommended Over The Counter medications, Medications were administered in the Emergency Department. See MAR. Care significantly affected by the following Social Determinants of Health: Poor access to healthcare and/or lack of insurance, Poor access to transportation, Problems related to employment. Counseling: I had a detailed discussion with the patient and/or guardian regarding the historical points, exam findings, and any diagnostic results supporting the discharge/admit diagnosis, the presence of at least one elevated blood pressure reading (>120/80) during this emergency department visit, lab results, radiology results, the need for outpatient follow up, for definitive care, an OB/Gyne specialist, to return to the emergency department if symptoms worsen or persist or if there are any questions or concerns that arise at home. Medication response: Normal saline. Response to treatment: the patient is now symptom free. Special discussion: I discussed with the patient/guardian in detail that at this point there is no indication for admission to the hospital. It is understood, however, that if the symptoms persist or worsen the patient needs to return immediately for re-evaluation. Based on the history and exam findings, there is no indication for further emergent testing or inpatient evaluation. I discussed with the patient/guardian the need to see the OB Gyne specialist for further evaluation of the symptoms. ED course: Reexam of abdomen remains pain-free. No tenderness to palpation in right lower quadrant. CT scan concerning for ovarian cyst. All questions answered. Will have patient follow-up with gynecology for further management. 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 Strict ER precautions given. 01/03 09:54 Order name: CBC with Diff; Complete Time: 10:46 dr5 01/03 09:54 Order name: CMP; Complete Time: 10:50 dr5 01/03 09:54 Order name: Lipase; Complete Time: 10:50 dr5 01/03 10:08 Order name: CT Abd/Pelvis - PO and IV Contrast; Complete Time: 13:14 dr5 01/03 09:54 Order name: IV Saline Lock; Complete Time: 10:37 dr5 01/03 09:54 Order name: Labs collected and sent; Complete Time: 10:37 dr5 Administered Medications: 10:47 Drug: Ondansetron IVP 4 mg IVP once; over 2 minutes Route: IVP; Site: right forearm; cc6 14:15 Follow up: Response: No adverse reaction kj2 10:47 Drug: NS 0.9% IV 1000 ml IV at 1 bolus Per protocol; to be given as a bolus over 60 cc6 minutes Route: IV; Rate: 1 bolus; Site: right forearm; 14:14 Follow up: IV Status: Completed infusion; IV Intake: 1000ml kj2 Disposition: 16:50 I was immediately available on-site in the Emergency Department for consultation in the ms3 care of the patient. Disposition Summary: 01/03/25 13:57 Discharge Ordered Notes: Location: Home(01/03/25 13:57) dr5 Condition: Stable(01/03/25 13:57) dr5 Diagnosis - Other ovarian cysts dr5 Followup: dr5 - With: Emergency Department - When: As needed - Reason: Worsening of condition Followup: dr5 - With: Kinjal Bermudez MD - When: 1 - 2 days - Reason: Recheck today's complaints, Continuance of care, Re-evaluation by your physician Discharge Instructions: - Discharge Summary Sheet dr5 - Ovarian Cyst dr5 - Ovarian Cyst, [id number] dr5 Forms: - Medication Reconciliation Form dr5 - Patient Portal Instructions dr5 - Leadership Thank You Letter dr5 Prescriptions: - Ibuprofen 800 mg Oral Tablet - take 1 tablet ORAL route every 12 hours As needed take with food; 20 tablet; dr5 Refills: 0, Product Selection Permitted Signatures: Dispatcher [employer] EDMS Anselmo Ogden, RN RN Matt Liriano DO DO ms3 Ursula Acosta, RN RN cc6 Evans Gary, JIG WORKER-C JIG WORKER-Cdr5 Christiana Gusman RN kj2 Corrections: (The following items were deleted from the chart) 09:55 09:55 CBC+H.LAB.BRZ ordered. EDMS EDMS 09:55 09:55 COMPREHENSIVE METABOLIC PANEL+C.LAB.BRZ ordered. EDMS EDMS 09:55 09:55 LIPASE+C.LAB.BRZ ordered. EDMS EDMS 09:55 09:55 UA Rfx César Cult if indicated+U.LAB.BRZ ordered. EDMS EDMS 09:55 09:55 Test, Urine+UC.LAB.BRZ ordered. EDMS EDMS 12:05 12:04 [address] dr5 dr5 12:05 12:04 Stable dr5 dr5 12:05 12:04 UTI/ Urinary tract infection, site not specified dr5 dr5
--- NOTE | 2025-01-03 13:10 | RAD REPORT ---
EXAMINATION: Abdomen Pelvis W Contrast CLINICAL INDICATION: Female, 29 years old.ABD PAIN TECHNIQUE: CT abdomen and pelvis was performed, after the administration of IV contrast, as per [facility] protocol. Axial, sagittal and coronal reconstructions were obtained. One or more of the following dose reduction techniques were used: Automated exposure control, adjustment of the mA and/o r kV according to patient size, and/or iterative reconstruction. Unless otherwise specified, incidental findings do not require dedicated imaging follow-up. [id number]. COMPARISON: No prior exams FINDINGS: LOWER CHEST: No acute process identified. No significant pericardial effusion. Mild circumferential t hickening of the distal esophagus which could reflect esophagitis. UPPER GI: No significant abnormality. LIVER: Hepatic steatosis, but otherwise unremarkable. GALLBLADDER/BILE DUCTS: No biliary ductal dilatation.? PANCREAS: No mass, ductal dilation, or simin-pancreatic fluid. SPLEEN: Unremarkable. ADRENALS: No adrenal masses. KIDNEYS AND URETERS: No hydronephrosis. No suspicious renal mass. No renal calculi. No ureteral calcu li. ABDOMINAL AORTA AND OTHER VESSELS: Normal caliber aorta and IVC. PERITONEUM: Mild stranding within the fat at the right lower quadrant. LYMPH NODES: No pathologic lymphadenopathy. ABDOMINAL WALL: Unremarkable SMALL BOWEL/COLON: Small bowel has normal course and caliber. No colonic wall thickening or pericolon ic inflammatory changes. Normal appendix. URINARY BLADDER: Underdistended but grossly unremarkable. REPRODUCTIVE ORGANS: No pathologic process. MUSCULOSKELETAL: No acute or suspicious osseous abnormality. ADDITIONAL FINDINGS: None. IMPRESSION: No definite acute findings within the abdomen or pelvis. No appendicitis. Mild asymmetric enlargement of the right ovary which could be due to an underlying hemorrhagic cyst o r corpus luteum. This could be a source of pain. Small volume of pelvic free fluid. Mild stranding at the right lower quadrant within the peritoneal fat could reflect an omental infarct or other nonspecific inflammation.
[2025-01-03 14:44] VITALS: O2SAT 100
[2025-01-03 14:46] VITALS: BP 128/82; TEMP 98.1
== END 2025-01-03 14:15 | disposition home or self-care (01) ==
LOC: ER 09:47
DX: N83.291 Other ovarian cyst, right side (principal)
CPT/HCPCS: 36415; 74177; 80053; 83690; 85025; 96361; 96374; 99284; J2405; J7030; Q9967